=== PATIENT | male | born 1955 | race Caucasian/White ===

== ENCOUNTER 2019-01-13 15:15 | Inpatient (IN) | payer BC, SELFPAY ==
[2019-01-13] VITALS (16 sets, daily range): BP systolic 92–160; BP diastolic 56–90; PULSE 78–125; RESP 13–24; TEMP 36.5–39.1; O2SAT 92–98; BMI 23.6; BMI 24.0
--- NOTE | 2019-01-13 15:28 | EKG12_ITS ---
Test Reason : Blood Pressure : / mmHG Vent. Rate : 114 BPM Atrial Rate : 114 BPM P-R Int : 168 ms QRS Dur : 140 ms QT Int : 374 ms P-R-T Axes : 041 -89 061 degrees QTc Int : 515 ms Sinus tachycardia with occasional and consecutive Premature ventricular complexes Left axis deviation Right bundle branch block Inferior infarct , age undetermined Abnormal ECG Confirmed by SARA SIMPSON, EVIN ([id number]), senior technical editor ISRAEL NOE ([id number] on 01/15/2019 9:29:55 AM Referred By: LESTER Confirmed By:EVIN RUIZ MD
--- NOTE | 2019-01-13 15:29 | CT_ITS ---
STUDY: CT ABDOMEN AND PELVIS WITH CONTRAST REASON FOR EXAM: Male, 63 years old. Bilateral lower abdominal pain. RADIATION DOSAGE (If Supplied By Facility): CTDIvol = ( 11.15 ) mGy, DLP = ( 659.64 ) mGycm TECHNIQUE: Transaxial images were obtained from the dome of the diaphragm to the symphysis pubis without oral contrast. 100 IV Isovue 370 was administered. Sagittal and coronal images were reconstructed. Individualized dose optimization techniques were used for this CT. COMPARISON: January 13, 2013 FINDINGS: There is atelectasis within the dependent portion of the lungs. The visualized portions of the heart are within normal limits. There is a small lipomatous density posterior to the right cardiac border likely of no significance Normal liver. Normal gallbladder and extrahepatic biliary system. Normal spleen. Normal pancreas. Normal bilateral adrenal glands. There are bilateral nonobstructing renal calculi. No evidence for hydronephrosis or ureteral calculus. There is a small parapelvic cyst in left kidney. Concentric thickening of the gutierrez of the stomach and narrowing of the lumen which may be consistent with nonspecific gastritis.. Normal small intestine. Diffuse ileus pattern is noted. No evidence for small bowel obstruction or pneumoperitoneum . There are diverticular changes in the sigmoid colon. There is narrowing of a long segment of the sigmoid with stranding in the fat as well as a small amount of free fluid in the pelvis likely due to acute diverticulitis. No evidence for peridiverticular abscess Appendix is not visualized likely due to prior appendectomy Atherosclerotic changes of the aorta with aneurysmal dilatation of the distal aorta with maximum dimension of approximately 3.4 x 3.1 cm.. 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 Normal inferior vena cava. Normal retroperitoneum. There is nonspecific prominence of the prostate. Normal urinary bladder. Small fat-containing umbilical hernia. Small bilateral fat-containing inguinal hernias. Lumbar spine demonstrates mild spondylosis. CT/Abdomen/Pelvis W IV Cont ONLY IMPRESSION: Concentric thickening of the gutierrez of stomach and narrowing of the lumen consistent with nonspecific gastritis. Diffuse ileus pattern. There are diverticular changes within the sigmoid colon association with segmental thickening of the wall the bowel stranding in the fat and small amount of free fluid likely due to acute diverticulitis. No peridiverticular abscess is observed at this time. Electronically Signed: Romel Zarco MD at 17:08 EDT , Service support ,
--- NOTE | 2019-01-13 15:30 | ED.VISSUMM ---
- ER Visit Summary Date of Service: 01/13/19 Chief Complaint: Lower abdominal pain History of Present Illness: The patient is a 63 M who presents for bilateral lower abdominal pain for 4 days. Patient states 4 days ago he began having crampy lower abdominal pain that is waxed and waned in intensity. It is improved by remaining still and worsened by coughing or moving resulting in abdominal muscular contraction. Patient states the pain is 10 out of 10 in the situations. He has had intermittent chills, constipation for which she tried Mylanta and Metamucil, with a last bowel movement yesterday. No nausea, vomiting, diarrhea. No dysuria, hematuria, frequency or urgency. No chest pain or shortness of breath. Patient has history of kidney stones, a colonoscopy 3 weeks ago with polypectomy, and an appendectomy. Patient is on lisinopril. He uses alcohol and tobacco. Physical Examination: Vital signs: afebrile, hemodynamically stable, no hypoxia on room air General: well nourished, well developed, in no distress, actively shivering Skin: warm, dry, no rash, no pallor HEENT: normocephalic and atraumatic; PERRL, EOMI, moist mucous membranes Cardiovascular: Tachycardic rate and regular rhythm without murmurs, no peripheral edema, 2+ pulses all distal extremities Respiratory: No increased work of breathing, lungs are clear to auscultation bilaterally, no rales, rhonchi or wheezing Abdominal: Abdomen is soft, tender in the bilateral lower quadrants and suprapubic region with voluntary guarding, normoactive bowel sounds, no rebound or distention, no masses MSK: Moves all extremities, no deformities, normal strength Neuro: Awake and alert, oriented ?4. No facial droop, sensation and motor function intact and symmetric Test Results: Abnormal Lab Results 01/13/19 01/13/19 01/13/19 15:30 15:30 15:30 WBC 11.7 H RBC 4.59 L Hgb 14.7 Hct 42.3 MCV 92.2 MCH 32.0 MCHC 34.8 RDW 12.9 RDW Differential 43.3 Plt Count 153 MPV 13.2 H Immature Gran % (Auto) 0.100 Neut % (Auto) 90.4 H Lymph % (Auto) 5.5 L [place] % (Auto) 3.5 Eos % (Auto) 0.4 Baso % (Auto) 0.1 Absolute Neuts (auto) 10.5 H Absolute Lymphs (auto) 0.64 L Total Counted Not Reportable PT 13.7 INR 1.1 APTT 29.8 Sodium 133 L Potassium 4.4 Chloride 102 Carbon Dioxide 25.0 Anion Gap 6 BUN 15 Creatinine 1.08 Estim Creat Clear Calc 76.84 Est GFR (MDRD) Af Amer 89 Est GFR (MDRD) Non-Af 73 BUN/Creatinine Ratio 13.9 Glucose 96 Lactic Acid Calcium 8.8 Total Bilirubin 0.80 AST 35 ALT 24 Alkaline Phosphatase 98 Total Protein 7.4 Albumin 3.4 Globulin 4.0 Albumin/Globulin Ratio 0.8 L Urine Color Urine Clarity Urine pH Ur Specific [place] Urine Protein Urine Glucose (UA) Urine Ketones Urine Occult Blood Urine Nitrite Urine Bilirubin Urine Urobilinogen Ur Leukocyte Esterase Urine RBC Urine WBC Ur Squamous Epith Cells Urine Bacteria Urine Mucus 01/13/19 01/13/19 15:30 17:15 WBC RBC Hgb Hct MCV MCH MCHC RDW RDW Differential Plt Count MPV Immature Gran % (Auto) Neut % (Auto) Lymph % (Auto) [place] % (Auto) Eos % (Auto) Baso % (Auto) Absolute Neuts (auto) Absolute Lymphs (auto) Total Counted PT INR APTT Sodium Potassium Chloride Carbon Dioxide Anion Gap BUN Creatinine Estim Creat Clear Calc Est GFR (MDRD) Af Amer Est GFR (MDRD) Non-Af BUN/Creatinine Ratio Glucose Lactic Acid 2.0 Calcium Total Bilirubin AST ALT Alkaline Phosphatase Total Protein Albumin Globulin Albumin/Globulin Ratio Urine Color Yellow Urine Clarity Clear Urine pH 6.5 Ur Specific [place] 1.010 Urine Protein Negative Urine Glucose (UA) Normal Urine Ketones 15 H Urine Occult Blood Negative Urine Nitrite Negative Urine Bilirubin Negative Urine Urobilinogen Normal Ur Leukocyte Esterase Negative Urine RBC 0 SEEN Urine WBC 0 SEEN Ur Squamous Epith Cells 0 SEEN Urine Bacteria 0 SEEN Urine Mucus 0 SEEN Clinical Impression(s) from Imaging Studies Abdomen/Pelvis CT 01/13/19 15:29 IMPRESSION: Concentric thickening of the gutierrez of stomach and narrowing of the lumen consistent with nonspecific gastritis. Diffuse ileus pattern. There are diverticular changes within the sigmoid colon association with segmental thickening of the wall the bowel stranding in the fat and small amount of free fluid likely due to acute diverticulitis. No peridiverticular abscess is observed at this time. Electronically Signed: Romel Zarco MD at 17:08 EDT , Service support , Chest X-Ray 01/13/19 15:35 IMPRESSION: No acute cardiopulmonary pathology Electronically Signed: Romel Zarco MD at 16:59 EDT , Service support , Medications Given Sodium Chloride () 1,000 mls @ 999 mls/hr IV .Q1H1M STEFFI Last Admin: 01/13/19 17:31 Dose: Not Given Admin: 01/13/19 17:31 Dose: Not Given Admin: 01/13/19 15:42 Dose: 999 mls/hr Discontinued Medications Piperacillin Sod/Tazobactam (Sod 3.375 gm/ Sodium Chloride) 50 mls @ 100 mls/hr IV X1 ONE Stop: 01/13/19 17:01 Last Admin: 01/13/19 17:32 Dose: 100 mls/hr Morphine Sulfate () 4 mg IV X1 ONE Stop: 01/13/19 15:29 Last Admin: 01/13/19 15:42 Dose: 4 mg Morphine Sulfate () 4 mg IV X1 ONE Stop: 01/13/19 17:17 Ondansetron HCl (Zofran) 4 mg IV X1 ONE Stop: 01/13/19 15:29 Last Admin: 01/13/19 15:42 Dose: 4 mg Emergency Department Course and Treatment: Patient presents tachycardic, tachypneic with obvious rigors, and abdominal complaints concerning for intra-abdominal process, meeting SIRS criteria. Thus sepsis workup was performed. Patient was given normal saline for hydration. Patient was given morphine and Zofran for symptom medic relief. Labs showed a mild leukocytosis of 11.7 with neutrophil predominance. Urine was negative for infection. CT of the abdomen and pelvis showed fat stranding around the sigmoid colon, interpreted by radiology is most likely consistent with acute diverticulitis. Zosyn was started for empiric antibiotic coverage due to the suspected intra-abdominal source before that CT scan had been performed. Lactate was 2. Patient remained tachycardic while in the emergency department but did have some improvement in his heart rate with IV fluids and pain control. Patient required additional pain medication. He will require admission for IV antibiotics and further inpatient management of sepsis and acute diverticulitis. Treatment Plan: [] Disposition: [] Impression: acute diverticulitis, sepsis This note was generated with [employer] dictation software. It may contain incorrect words, spelling, and punctuation that were not noted in review of the chart prior to signing ED Disposition - Plan for ED Patient: Referrals: Juanjose Lainez MD [Primary Care Provider] -
--- NOTE | 2019-01-13 15:35 | RAD_ITS ---
STUDY: X-RAY CHEST REASON FOR EXAM: Male, 63 years old. Fever and upper abdominal pain TECHNIQUE: AP portable COMPARISON: None. FINDINGS: The lungs are clear and expanded. There is no demonstrated pleural abnormality. Normal size heart. Normal mediastinum and eleno. Normal visualized pulmonary arteries. Minor calcification of the aortic arch and descending thoracic aorta. Normal visualized thoracic spine. Normal visualized ribs, clavicles, and shoulders. There is no demonstrated abnormality of the visualized soft tissue structures of the upper abdomen. RAD/Chest 1 View (Portable) IMPRESSION: No acute cardiopulmonary pathology Electronically Signed: Romel Zarco MD at 16:59 EDT , Service support ,
[2019-01-13] MEDS: Morphine 4 MG/ML Syringe IV (15:42)
[2019-01-13] MEDS: 0.9% Normal Saline 1,000 ML 999 ML IV (15:42)
[2019-01-13] MEDS: Ondansetron 4 MG/2 ML Vial IV (15:42)
[2019-01-13 16:16] LABS: ALB/GLOB Ratio 0.8 RATIO (0.9-2.4); AST(SGOT) 35 U/L (15-37); Alanine Aminotransfer ALT/SGPT 24 U/L (16-61); Albumin, Serum 3.4 g/dL (3.2-5.0); Alkaline Phosphatase 98 U/L (45-117); Anion Gap 6 (5-15); BUN 15 mg/dL (7-18); BUN/Creat Ratio 13.9 RATIO (10-20); Calcium,Total 8.8 mg/dL (8.5-10.1); Chloride 102 mmol/L (98-107); Creatinine, Serum 1.08 mg/dL (0.70-1.30); EST Glomerular Filtration Rate 73 mL/min (>60); Est Glom Filt Rate - Afr Amer 89 mL/min (>60); Estimated Creatinine Clearance 76.84 ml/min; Glucose 96 mg/dL (74-106); Potassium 4.4 mmol/L (3.5-5.1); Protein, Total 7.4 g/dL (6.4-8.2); Sodium Level 133 mmol/L (136-145)
[2019-01-13 16:29] LABS: Absolute Lymphocyte Count 0.64 X10^3/ul (0.83-4.51); Absolute Neutrophil Count 10.5 X10^3/uL (2.0-7.7); Basophil# 0.01 X10^3/uL; Basophil% 0.1 % (0-1); Eosinophil# 0.05 X10^3/uL; Eosinophils% 0.4 % (0-5); Hematocrit 42.3 % (40-54); Hemoglobin 14.7 g/dl (13.0-16.5); Lymphocyte # 0.64 X10^3/ul (4.0); Lymphocyte % 5.5 % (19-41); Mean Corp Hgb Conc 34.8 g/gl (32-36); Mean Corpuscular Volume 92.2 fL (80-94); Mean Platelet Vol. 13.2 fl (6.2-12.0); Monocyte# 0.41 X10^3/uL; Monocyte% 3.5 % (0-10); Neutrophil # 10.53 X10^3/uL (2.7-7.7); Neutrophil % 90.4 % (47-70); Platelet Count 153 K/mm3 (150-450); RBC Distribution Width CV 12.9 % (11.6-14.6); RBC Distribution Width SD 43.3 fl (35.1-43.9); Red Blood Count 4.59 M/mm3 (4.6-6.2); White Blood Count 11.7 K/mm3 (4.4-11.0)
[2019-01-13 16:31] LABS: POSITIVE COUNT NO; POSITIVE DIFFERENTIAL NO; POSITIVE MORPHOLOGY NO
[2019-01-13 16:53] LABS: International Normalized Ratio 1.1; Prothrombin Time (Protime)PT. 13.7 SECONDS (11.7-14.9)
[2019-01-13 16:54] LABS: Partial Thromboplast Time 29.8 Seconds (24.1-36.2)
[2019-01-13 17:22] LABS: Bacteria 0 SEEN /hpf (None Seen); Mucous, Urine 0 SEEN /hpf (<or=2+); Red Blood Cells-Urine 0 SEEN /hpf (0-5); Squamous Epithelial Cells - UA 0 SEEN /hpf (0-5); White Blood Cells 0 SEEN /hpf (0-5)
[2019-01-13 17:28] LABS: Color, Urine Yellow (Yellow); Glucose, Dipstick Normal (Normal); Ketone-Dipstick 15 mg/dl (Negative); Leukocyte Esterase-Dipstick Negative /ul (Negative); Nitrite-Dipstick Negative (Negative); Occult Blood-Urine Negative /ul (Negative); Protein-Dipstick Negative (Negative); Urine Bilirubin Dipstick Negative (Negative); Urine Clarity Clear (Clear); Urine Urobilinogen Normal (Normal); Urine pH 6.5 (5.0 - 8.0)
--- NOTE | 2019-01-13 18:01 | PCM.HP.STD ---
Problem List (1) Acute diverticulitis Status: Acute (2) Hypertension Status: Chronic Qualifiers: Hypertension type: essential hypertension Qualified Code(s): I10 - Essential (primary) hypertension (3) Nicotine dependence Status: Chronic Qualifiers: Nicotine product type: cigarettes Substance use status: uncomplicated Qualified Code(s): F17.210 - Nicotine dependence, cigarettes, uncomplicated (4) Alcohol dependence Status: Chronic Qualifiers: Substance use status: uncomplicated Qualified Code(s): F10.20 - Alcohol dependence, uncomplicated History of Present Illness Date of Admission: 01/13/19 Chief Complaint: Abdominal pain- 4 days. fever, chills - 1 week The patient is a 63 year old M with past medical history of hypertension, nicotine dependence, alcohol dependence who comes in with complaints of fever and chills ongoing for 1 week and abdominal discomfort ongoing for 3-4 days. Patient states that he had colonoscopy done 3 weeks ago on December 22, 2018. He reported that he was in his usual state of health until about a week ago when he started having fever and chills. His fever and chills were managed symptomatically and seemed to have been abating. He, however, developed severe abdominal pain 4 days which is described as cramping. He denied any nausea or vomiting or diarrhea. He admits to drinking about 6 packs of beer every day. Denied any acute withdrawal symptoms. Admits to smoking about a pack per day. Vitals in the ED show blood pressure 160/90, temperature 97.7 F, heart rate 125, respiratory rate 24, SPO2 98% on room air. His admitting blood work showed WBC count of 11.7, hemoglobin 14.7, platelet count 153, INR 1.1, BMP was unremarkable except for sodium of 133, UA was unremarkable Admitting chest x-ray showed no acute cardiopulmonary process. CT of the abdomen and pelvis showed atelectasis in the dependent portion of the lungs, bilateral nonobstructing renal calculi without evidence of hydronephrosis, concentric thickening of the gutierrez of the stomach and narrowing of the lumen consistent with nonspecific gastritis, diffuse ileus, diverticular changes in the sigmoid with stranding in the fact consistent with acute diverticulitis. Past Medical History Past Medical History (Chronic Problems): Chronic Problems Hypertension (Chronic) Nicotine dependence (Chronic) Alcohol dependence (Chronic) Allergies No Known Allergies Allergy (Verified 04/15/19 15:19) Home Medications: Ambulatory Orders Medication Instructions Recorded Lisinopril [Zestril] 10 mg PO DAILY 01/13/19 Surgical History: cholecystectomy, tonsillectomy Psychiatric History: No pertinent psych hx Lives: Alone Smoking Status: Current every day smoker Tobacco Use: Cigarettes Alcohol: Heavy Drugs: None - *Family History Maternal History Items: Hypertension Paternal History Items: Hypertension Review of Systems Constitutional: Reports: Anorexia, Chills, Fever, Malaise, Weakness, Fatigue. Denies: Night Sweats, Weight Change Eyes: Denies: Blurred vision, Cataracts, Conjunctivae Inflammation, Pain, Redness HEENT: Denies: Difficulty Hearing, Difficulty Swallowing, Head Aches, Hearing Changes, Sinus Congestion, Sinus Drainage, Sore Throat Cardiovascular: Denies: Chest Pain, Claudication, Chest Pressure, Orthopnea, Palpitations Respiratory: Denies: Cough, Hemoptysis, Shortness of breath at rest, Sputum production Gastrointestinal: Reports: Abdominal Pain. Denies: Diarrhea, Nausea, Vomiting Genitourinary: Denies: Dysuria, Frequency, Incontinence Musculoskeletal: Denies: Joint Pain, Joint Tenderness Skin: Denies: Rash, Wounds Neurological: Denies: Numbness, Tingling, Focal weakness Psychiatric: Denies: Anxiety, Depression, Homicidal Ideations, Suicidal Ideations Hematologic/ Lymphatic: Denies: Easy Bruising, Easy Bleeding VTE Information - Inpt Only VTE Present on Admission: No VTE Pharm Prophylaxis ordered?: Yes Patient Problems: Active and Suspected Problems Acute diverticulitis (Acute) - Physical Exam General: Alert, Oriented x3, Cooperative, - - appears unwell HEENT: Atraumatic, PERRLA, EOMI, Normocephalic Oral: Moist Mucosa Neck: Supple, No JVD, Negative Carotid Bruits Lungs: Clear to auscultation, Normal air movement Cardiovascular: Regular rate, Regular Rhythm, Normal S1, Normal S2, No murmurs Abdomen: Bowel Sounds Present, Soft, Tender - generalised, worse in left lower quadrant Extremities: No edema Skin: No rashes, No breakdown Musculoskeletal: No Tenderness to Palpation of Joints or Extremities Lymphatic: No Cervical, Supraclavicular, or Inguinal Adenopathy Neurological: Cranial nerves II-XII grossly intact, Neuro grossly intact Psych/Mental Status: Normal Affect, Appropriate Vital Signs Temp Pulse Resp BP Pulse Ox 98.0 F 116 H 20 H 129/77 H 93 01/13/19 17:11 01/13/19 17:12 01/13/19 17:12 01/13/19 16:57 01/13/19 17:12 Oxygen Delivery Method Room Air Weight: 79.2 kg Body Mass Index (BMI) 23.6 Laboratory Tests Past 24 Hrs 01/13/19 01/13/19 01/13/19 15:30 15:30 15:30 WBC 11.7 H RBC 4.59 L Hgb 14.7 Hct 42.3 MCV 92.2 MCH 32.0 MCHC 34.8 RDW 12.9 RDW Differential 43.3 Plt Count 153 MPV 13.2 H Immature Gran % (Auto) 0.100 Neut % (Auto) 90.4 H Lymph % (Auto) 5.5 L [place] % (Auto) 3.5 Eos % (Auto) 0.4 Baso % (Auto) 0.1 Absolute Neuts (auto) 10.5 H Absolute Lymphs (auto) 0.64 L Total Counted Not Reportable PT 13.7 INR 1.1 APTT 29.8 Sodium 133 L Potassium 4.4 Chloride 102 Carbon Dioxide 25.0 Anion Gap 6 BUN 15 Creatinine 1.08 Estim Creat Clear Calc 76.84 Est GFR (MDRD) Af Amer 89 Est GFR (MDRD) Non-Af 73 BUN/Creatinine Ratio 13.9 Glucose 96 Lactic Acid Calcium 8.8 Total Bilirubin 0.80 AST 35 ALT 24 Alkaline Phosphatase 98 Total Protein 7.4 Albumin 3.4 Globulin 4.0 Albumin/Globulin Ratio 0.8 L Urine Color Urine Clarity Urine pH Ur Specific [place] Urine Protein Urine Glucose (UA) Urine Ketones Urine Occult Blood Urine Nitrite Urine Bilirubin Urine Urobilinogen Ur Leukocyte Esterase Urine RBC Urine WBC Ur Squamous Epith Cells Urine Bacteria Urine Mucus 01/13/19 01/13/19 15:30 17:15 WBC RBC Hgb Hct MCV MCH MCHC RDW RDW Differential Plt Count MPV Immature Gran % (Auto) Neut % (Auto) Lymph % (Auto) [place] % (Auto) Eos % (Auto) Baso % (Auto) Absolute Neuts (auto) Absolute Lymphs (auto) Total Counted PT INR APTT Sodium Potassium Chloride Carbon Dioxide Anion Gap BUN Creatinine Estim Creat Clear Calc Est GFR (MDRD) Af Amer Est GFR (MDRD) Non-Af BUN/Creatinine Ratio Glucose Lactic Acid 2.0 Calcium Total Bilirubin AST ALT Alkaline Phosphatase Total Protein Albumin Globulin Albumin/Globulin Ratio Urine Color Yellow Urine Clarity Clear Urine pH 6.5 Ur Specific [place] 1.010 Urine Protein Negative Urine Glucose (UA) Normal Urine Ketones 15 H Urine Occult Blood Negative Urine Nitrite Negative Urine Bilirubin Negative Urine Urobilinogen Normal Ur Leukocyte Esterase Negative Urine RBC 0 SEEN Urine WBC 0 SEEN Ur Squamous Epith Cells 0 SEEN Urine Bacteria 0 SEEN Urine Mucus 0 SEEN Assessment/Plan All Active Problems Acute diverticulitis (Acute) 63 year old M with past medical history of hypertension, nicotine dependence, alcohol dependence who comes in with complaints of fever and chills ongoing for 1 week and abdominal discomfort ongoing for 3-4 days. Patient states that he had colonoscopy done 3 weeks ago (December 22, 2018) 1. Sepsis secondary to acute diverticulitis, (admitting fever with chills, leukocytosis and diverticulitis on CT scan of abdomen/pelvis Plan: Admit to [facility], IV Cipro, IV Flagyl, general surgery-Dr. Henry consult, pain control, IV fluids, repeat labs in a.m. 2. Nicotine dependence, on replacement 3. Chronic alcohol dependence, not in acute withdrawal at the moment, will put on alcohol withdrawal protocol, Will continue on IV thiamine for now since patient is n.p.o., Patient will need to be put on multivitamin, folic acid, oral thiamine when he is able to tolerate a diet 4. Hypertension, controlled, on lisinopril, Continue to monitor 5. DVT PPx- Heparin SC Code Visit Inpatient E&M: 73093 Init Hosp L3
[2019-01-13] MEDS: Acetaminophen 500 MG Tablet 1000 MG PO (18:16)
[2019-01-13] MEDS: Ciprofloxacin 200 MG/100 ML BAG 100 MG IV (19:27)
[2019-01-13] MEDS: 0.9% Normal Saline 1,000 ML 100 ML IV (19:27)
[2019-01-13 19:55] LABS: Reflex Lactate? Y
[2019-01-13 21:23] LABS: Lactic Acid 0.9 mmol/L (0.4-2.0)
[2019-01-13] MEDS: Heparin Injection (Vial) 5,000 UNIT/ML VIAL 5000 UNIT SC (21:31)
[2019-01-14] VITALS (9 sets, daily range): BP systolic 96–134; BP diastolic 56–81; PULSE 77–107; RESP 14–18; TEMP 36.7–37.8; O2SAT 94–100
[2019-01-14] MEDS: 0.9% Normal Saline 1,000 ML 150 ML IV ×3 (04:16→21:25)
--- NOTE | 2019-01-14 04:21 | NURSING ---
Patient refused seizure pads. He states he does not drink a six pack of beer a day. He states he may drink a six pack in a week or more.
[2019-01-14 06:16] LABS: Absolute Lymphocyte Count 0.89 X10^3/ul (0.83-4.51); Absolute Neutrophil Count 10.7 X10^3/uL (2.0-7.7); Basophil# 0.03 X10^3/uL; Basophil% 0.2 % (0-1); Eosinophil# 0.12 X10^3/uL; Hematocrit 36.2 % (40-54); Hemoglobin 12.4 g/dl (13.0-16.5); Lymphocyte # 0.89 X10^3/ul (4.0); Lymphocyte % 7.2 % (19-41); Mean Corp Hgb Conc 34.3 g/gl (32-36); Mean Corpuscular Hgb 31.4 pg (27.0-32.0); Mean Corpuscular Volume 91.6 fL (80-94); Mean Platelet Vol. 12.3 fl (6.2-12.0); Monocyte# 0.58 X10^3/uL; Monocyte% 4.7 % (0-10); Neutrophil # 10.68 X10^3/uL (2.7-7.7); Neutrophil % 86.7 % (47-70); Platelet Count 139 K/mm3 (150-450); RBC Distribution Width SD 43.6 fl (35.1-43.9); Red Blood Count 3.95 M/mm3 (4.6-6.2); White Blood Count 12.3 K/mm3 (4.4-11.0)
[2019-01-14 06:29] LABS: POSITIVE COUNT NO; POSITIVE DIFFERENTIAL NO; POSITIVE MORPHOLOGY NO
[2019-01-14 06:44] LABS: Anion Gap 4 (5-15); BUN 15 mg/dL (7-18); BUN/Creat Ratio 17.6 RATIO (10-20); Chloride 109 mmol/L (98-107); Creatinine, Serum 0.85 mg/dL (0.70-1.30); EST Glomerular Filtration Rate 96 mL/min (>60); Est Glom Filt Rate - Afr Amer 117 mL/min (>60); Estimated Creatinine Clearance 97.63 ml/min; Glucose 92 mg/dL (74-106); Potassium 3.8 mmol/L (3.5-5.1); Sodium Level 136 mmol/L (136-145)
--- NOTE | 2019-01-14 06:48 | CON.PCM_ITS ---
Reason for Consult Date of Consultation: 01/14/19 History of Present Illness: The patient is a 63 year old M who presents with a four-day history of bilateral lower quadrant abdominal pain. The patient noted onset of lower abdominal pain along with fever and chills starting last . The pain persisted and became more severe. He noted some degree of constipation but was taking fiber and Mylanta and did notice a bowel movement yesterday. He is passing some flatus. When he presented emergency department, he was noted to be tender in the bilateral lower quadrants. Laboratory studies demonstrated a mildly elevated WBC count. CT scan demonstrated uncomplicated sigmoid diverticulitis. I had seen the patient recently for colon cancer screening complaints of upper abdominal reflux. He underwent upper and lower endoscopy on December 20, 2018. The patient was found to have duodenitis gastritis and distal esophagitis the time of endoscopy. Gastric and esophageal biopsies demonstrated reactive changes. Colonoscopy demonstrated L moderate size sessile polyp in the ascending colon, a few small diverticula in the sigmoid region and a smaller polyp in the rectosigmoid area. The ascending colon polyp returned as a tubular adenoma. The rectosigmoid polyp returned as a hyperplastic polyp. The patient was admitted to [facility]. He was started on ciprofloxacin and Flagyl and I was consulted. The patient's past medical history is otherwise him for hypertension, reflux. H is past surgical history includes appendectomy, tonsillectomy, laparoscopic cholecystectomy, and endoscopies as noted. Past Medical History Past Medical History (Chronic Problems): Chronic Problems Hypertension (Chronic) Nicotine dependence (Chronic) Alcohol dependence (Chronic) Allergies No Known Allergies Allergy (Verified 01/13/19 15:19) Home Medications: Ambulatory Orders Medication Instructions Recorded Lisinopril [Zestril] 10 mg PO DAILY 01/13/19 Surgical History: cholecystectomy, tonsillectomy Psychiatric History: No pertinent psych hx Lives: Alone Smoking Status: Current every day smoker Tobacco Use: Cigarettes Alcohol: Heavy Drugs: None - *Family History Maternal History Items: Hypertension Paternal History Items: Hypertension Review of Systems Constitutional: Reports: Anorexia, Chills, Fever. Denies: Weight Change HEENT: Denies: Head Aches, Sinus Congestion, Sinus Drainage Cardiovascular: Denies: Chest Pain, Palpitations Respiratory: Denies: Cough, Shortness of breath at rest, Sputum production Gastrointestinal: Reports: Abdominal Pain. Denies: Nausea, Vomiting Genitourinary: Denies: Dysuria Musculoskeletal: Denies: Joint Pain, Joint Tenderness Skin: Denies: Rash, Wounds Neurological: Denies: Numbness, Tingling, Focal weakness Psychiatric: Denies: Anxiety, Depression, Homicidal Ideations, Suicidal Ideations Hematologic/ Lymphatic: Denies: Easy Bruising, Easy Bleeding Patient Problems: Active and Suspected Problems Acute diverticulitis (Acute) - Physical Exam HEENT: Atraumatic, PERRLA, EOMI, Normocephalic Lungs: Clear to auscultation, Normal air movement Cardiovascular: Regular rate, No murmurs Abdomen: Bowel Sounds Present, Soft, Tender - tender in the right and left lower quadrants without diffuse peritoneal signs Vital Signs Temp Pulse Resp BP Pulse Ox 98.9 F 77 18 99/66 94 01/14/19 06:00 01/14/19 06:00 01/14/19 06:00 01/14/19 06:00 01/14/19 06:00 Oxygen Delivery Method Room Air Weight: 80.286 kg Body Mass Index (BMI) 24.0 Intake and Output for Last 24 Hours 01/12/19 01/13/19 01/14/19 23:59 23:59 23:59 Intake Total 1477 / 1477 Output Total 500 / 500 Balance 977 / 977 Laboratory Tests Past 24 Hrs 01/13/19 01/13/19 01/13/19 15:30 15:30 15:30 WBC 11.7 H RBC 4.59 L Hgb 14.7 Hct 42.3 MCV 92.2 MCH 32.0 MCHC 34.8 RDW 12.9 RDW Differential 43.3 Plt Count 153 MPV 13.2 H Immature Gran % (Auto) 0.100 Neut % (Auto) 90.4 H Lymph % (Auto) 5.5 L [place] % (Auto) 3.5 Eos % (Auto) 0.4 Baso % (Auto) 0.1 Absolute Neuts (auto) 10.5 H Absolute Lymphs (auto) 0.64 L Total Counted Not Reportable PT 13.7 INR 1.1 APTT 29.8 Sodium 133 L Potassium 4.4 Chloride 102 Carbon Dioxide 25.0 Anion Gap 6 BUN 15 Creatinine 1.08 Estim Creat Clear Calc 76.84 Est GFR (MDRD) Af Amer 89 Est GFR (MDRD) Non-Af 73 BUN/Creatinine Ratio 13.9 Glucose 96 Lactic Acid Calcium 8.8 Total Bilirubin 0.80 AST 35 ALT 24 Alkaline Phosphatase 98 Total Protein 7.4 Albumin 3.4 Globulin 4.0 Albumin/Globulin Ratio 0.8 L Urine Color Urine Clarity Urine pH Ur Specific [place] Urine Protein Urine Glucose (UA) Urine Ketones Urine Occult Blood Urine Nitrite Urine Bilirubin Urine Urobilinogen Ur Leukocyte Esterase Urine RBC Urine WBC Ur Squamous Epith Cells Urine Bacteria Urine Mucus 01/13/19 01/13/19 01/13/19 15:30 17:15 20:42 WBC RBC Hgb Hct MCV MCH MCHC RDW RDW Differential Plt Count MPV Immature Gran % (Auto) Neut % (Auto) Lymph % (Auto) [place] % (Auto) Eos % (Auto) Baso % (Auto) Absolute Neuts (auto) Absolute Lymphs (auto) Total Counted PT INR APTT Sodium Potassium Chloride Carbon Dioxide Anion Gap BUN Creatinine Estim Creat Clear Calc Est GFR (MDRD) Af Amer Est GFR (MDRD) Non-Af BUN/Creatinine Ratio Glucose Lactic Acid 2.0 0.9 Calcium Total Bilirubin AST ALT Alkaline Phosphatase Total Protein Albumin Globulin Albumin/Globulin Ratio Urine Color Yellow Urine Clarity Clear Urine pH 6.5 Ur Specific [place] 1.010 Urine Protein Negative Urine Glucose (UA) Normal Urine Ketones 15 H Urine Occult Blood Negative Urine Nitrite Negative Urine Bilirubin Negative Urine Urobilinogen Normal Ur Leukocyte Esterase Negative Urine RBC 0 SEEN Urine WBC 0 SEEN Ur Squamous Epith Cells 0 SEEN Urine Bacteria 0 SEEN Urine Mucus 0 SEEN 01/14/19 01/14/19 05:55 05:55 WBC 12.3 H RBC 3.95 L Hgb 12.4 L Hct 36.2 L MCV 91.6 MCH 31.4 MCHC 34.3 RDW 13.0 RDW Differential 43.6 Plt Count 139 L MPV 12.3 H Immature Gran % (Auto) 0.200 Neut % (Auto) 86.7 H Lymph % (Auto) 7.2 L [place] % (Auto) 4.7 Eos % (Auto) 1.0 Baso % (Auto) 0.2 Absolute Neuts (auto) 10.7 H Absolute Lymphs (auto) 0.89 Total Counted Not Reportable PT INR APTT Sodium Pending Potassium Pending Chloride Pending Carbon Dioxide Pending Anion Gap Pending BUN Pending Creatinine Pending Estim Creat Clear Calc Est GFR (MDRD) Af Amer Pending Est GFR (MDRD) Non-Af Pending BUN/Creatinine Ratio Pending Glucose Pending Lactic Acid Calcium Pending Total Bilirubin AST ALT Alkaline Phosphatase Total Protein Albumin Globulin Albumin/Globulin Ratio Urine Color Urine Clarity Urine pH Ur Specific [place] Urine Protein Urine Glucose (UA) Urine Ketones Urine Occult Blood Urine Nitrite Urine Bilirubin Urine Urobilinogen Ur Leukocyte Esterase Urine RBC Urine WBC Ur Squamous Epith Cells Urine Bacteria Urine Mucus Assessment/Plan All Active Problems Acute diverticulitis (Acute) sigmoid diverticulitis-uncomplicated I agree with maintaining the patient on nothing by mouth status for now given his abdominal complaints of discomfort and anorexia. We'll continue IV antibiotics until he has improvement of his abdominal pain and normalization of his white blood cell count. Once this occurs, we'll transition oral antibiotics and restart a low residue diet. I discussed with the patient had few small diverticula on CT scan so I anticipate that he will respond to conservative measures.
--- NOTE | 2019-01-14 07:24 | PN_ITS ---
Patient Problems: Active and Suspected Problems Acute diverticulitis (Acute) Subjective: The patient is a 63 year old M with past medical history of hypertension, nicotine dependence, alcohol dependence who comes in with complaints of fever and chills ongoing for 1 week and abdominal discomfort ongoing for 3-4 days. Vi js signs in the emergency department were temperature 97.7, blood pressure 160/90, heart rate 125, respiratory rate 24 and he was 98% saturated on room air. White blood cell count was 11.7, hemoglobin was 14.7 and the platelet count was 153,000. BMP was unremarkable with the exception of a mildly decreased sodium at 133. Admitting chest x-ray showed no acute cardiopulmonary processes. CT scan of the abdomen and pelvis showed concentric thickening of the gutierrez of the stomach and narrowing of the lumen consistent with nonspecific gastritis ileus was present. There were diverticular changes in the sigmoid colon with associated segmental thickening of the wall and stranding in the fat. No abscess was observed. On physical examination the abdomen was soft with bowel sounds present. He had pain with palpation which was generalized but worse in the left lower quadrant. He was admitted to the hospital with a diagnosis of sepsis secondary to acute diverticulitis. IV Cipro and IV Flagyl were continued and consult was placed for Dr. Henry. Day #2 Cipro and Flagyl All events of the past 24 hours been reviewed. Patient was seen by Dr. Henry this morning and I reviewed his consult. He agrees with conservative management. T-max is 102.3 and current temp is 98.9. Blood pressures are on the low side the systolic in the 90s but the MAP is adequate. Tachycardia has resolved. He is 94% saturated on room air. All lab was personally reviewed. The white blood cell count today is 12.3 with a left shift. Hemoglobin is 12.4 and the platelet count is 139,000. BMP is unremarkable. LFTs were normal at admission. He is c/o severe abdominal pain and cramping. Denies nausea. He drinks a six pack a week and not a six pack a day. He is thirsty and feeling lightheaded. - Physical Exam General: Alert, Oriented x3, Cooperative, Well developed, Well nourished, - - looks to be in severe pain and he is in a position HEENT: Atraumatic, PERRLA Oral: Dry Mucosa Neck: No JVD, Trachea Midline Lungs: Clear to auscultation, Normal air movement Cardiovascular: Regular rate, Regular Rhythm, Normal S1, Normal S2, No murmurs, - - distant heart sounds Abdomen: Bowel Sounds Present, Soft, Non-Distended, Tender - sakina in the LLQ, no rebound Extremities: No clubbing, No cyanosis, No edema, Peripheral Pulses Normal Skin: No rashes Neurological: Cranial nerves II-XII grossly intact, Neuro grossly intact Psych/Mental Status: Normal Affect, Appropriate Vital Signs Temp Pulse Resp BP Pulse Ox 98.9 F 77 18 99/66 94 01/14/19 06:00 01/14/19 06:00 01/14/19 06:00 01/14/19 06:00 01/14/19 06:00 Oxygen Delivery Method Room Air Weight: 177 lb Body Mass Index (BMI) 24.0 Intake and Output for Last 24 Hours 01/12/19 01/13/19 01/14/19 23:59 23:59 23:59 Intake Total 1477 / 1477 Output Total 500 / 500 Balance 977 / 977 Laboratory Tests Past 24 Hrs 01/13/19 01/13/19 01/13/19 15:30 15:30 15:30 WBC 11.7 H RBC 4.59 L Hgb 14.7 Hct 42.3 MCV 92.2 MCH 32.0 MCHC 34.8 RDW 12.9 RDW Differential 43.3 Plt Count 153 MPV 13.2 H Immature Gran % (Auto) 0.100 Neut % (Auto) 90.4 H Lymph % (Auto) 5.5 L [place] % (Auto) 3.5 Eos % (Auto) 0.4 Baso % (Auto) 0.1 Absolute Neuts (auto) 10.5 H Absolute Lymphs (auto) 0.64 L Total Counted Not Reportable PT 13.7 INR 1.1 APTT 29.8 Sodium 133 L Potassium 4.4 Chloride 102 Carbon Dioxide 25.0 Anion Gap 6 BUN 15 Creatinine 1.08 Estim Creat Clear Calc 76.84 Est GFR (MDRD) Af Amer 89 Est GFR (MDRD) Non-Af 73 BUN/Creatinine Ratio 13.9 Glucose 96 Lactic Acid Calcium 8.8 Total Bilirubin 0.80 AST 35 ALT 24 Alkaline Phosphatase 98 Total Protein 7.4 Albumin 3.4 Globulin 4.0 Albumin/Globulin Ratio 0.8 L Urine Color Urine Clarity Urine pH Ur Specific [place] Urine Protein Urine Glucose (UA) Urine Ketones Urine Occult Blood Urine Nitrite Urine Bilirubin Urine Urobilinogen Ur Leukocyte Esterase Urine RBC Urine WBC Ur Squamous Epith Cells Urine Bacteria Urine Mucus 01/13/19 01/13/19 01/13/19 15:30 17:15 20:42 WBC RBC Hgb Hct MCV MCH MCHC RDW RDW Differential Plt Count MPV Immature Gran % (Auto) Neut % (Auto) Lymph % (Auto) [place] % (Auto) Eos % (Auto) Baso % (Auto) Absolute Neuts (auto) Absolute Lymphs (auto) Total Counted PT INR APTT Sodium Potassium Chloride Carbon Dioxide Anion Gap BUN Creatinine Estim Creat Clear Calc Est GFR (MDRD) Af Amer Est GFR (MDRD) Non-Af BUN/Creatinine Ratio Glucose Lactic Acid 2.0 0.9 Calcium Total Bilirubin AST ALT Alkaline Phosphatase Total Protein Albumin Globulin Albumin/Globulin Ratio Urine Color Yellow Urine Clarity Clear Urine pH 6.5 Ur Specific [place] 1.010 Urine Protein Negative Urine Glucose (UA) Normal Urine Ketones 15 H Urine Occult Blood Negative Urine Nitrite Negative Urine Bilirubin Negative Urine Urobilinogen Normal Ur Leukocyte Esterase Negative Urine RBC 0 SEEN Urine WBC 0 SEEN Ur Squamous Epith Cells 0 SEEN Urine Bacteria 0 SEEN Urine Mucus 0 SEEN 01/14/19 01/14/19 05:55 05:55 WBC 12.3 H RBC 3.95 L Hgb 12.4 L Hct 36.2 L MCV 91.6 MCH 31.4 MCHC 34.3 RDW 13.0 RDW Differential 43.6 Plt Count 139 L MPV 12.3 H Immature Gran % (Auto) 0.200 Neut % (Auto) 86.7 H Lymph % (Auto) 7.2 L [place] % (Auto) 4.7 Eos % (Auto) 1.0 Baso % (Auto) 0.2 Absolute Neuts (auto) 10.7 H Absolute Lymphs (auto) 0.89 Total Counted Not Reportable PT INR APTT Sodium 136 Potassium 3.8 Chloride 109 H Carbon Dioxide 23.0 Anion Gap 4 L BUN 15 Creatinine 0.85 Estim Creat Clear Calc 97.63 Est GFR (MDRD) Af Amer 117 Est GFR (MDRD) Non-Af 96 BUN/Creatinine Ratio 17.6 Glucose 92 Lactic Acid Calcium 8.0 L Total Bilirubin AST ALT Alkaline Phosphatase Total Protein Albumin Globulin Albumin/Globulin Ratio Urine Color Urine Clarity Urine pH Ur Specific [place] Urine Protein Urine Glucose (UA) Urine Ketones Urine Occult Blood Urine Nitrite Urine Bilirubin Urine Urobilinogen Ur Leukocyte Esterase Urine RBC Urine WBC Ur Squamous Epith Cells Urine Bacteria Urine Mucus Medical Necessity - Tobacco Use Smoking Status: Current every day smoker Tobacco Use: Cigarettes Assessment/Plan All Active Problems Acute diverticulitis (Acute) Impressions 1. Sepsis secondary to acute diverticulitis 2. Nicotine dependence-nicotine patch and gum has been ordered. 3. History of alcohol dependence-this is no longer the case and he drinks 1 6 pack a week. Can discontinue the folic acid and thiamine. 4. History of hypertension 5. Low normal blood pressure secondary to intravascular volume depletion 6. Dehydration Change the morphine to 4 mg IV every 3 hours as needed pain 1 L normal saline fluid bolus and continue normal saline at 150 cc/h Continue Cipro and Flagyl Hold lisinopril if the systolic is less than 110 N.p.o. Continue famotidine for GI prophylaxis DC heparin and start Lovenox 40 mg subcu daily [address] Henry's input Recheck lab in the a.m. Code Visit Inpatient E&M: 20669 Subs Hosp L2
[2019-01-14] MEDS: 0.9% NaCl Peripheral Flush Adult/Peds IV ×3 (08:49→16:59)
[2019-01-14] MEDS: Morphine 2 MG/ML Syringe 1 MG IV (08:49)
[2019-01-14] MEDS: Heparin Injection (Vial) 5,000 UNIT/ML VIAL 5000 UNIT SC (08:49)
[2019-01-14] MEDS: Ciprofloxacin 200 MG/100 ML BAG 100 MG IV ×2 (08:50→22:55)
[2019-01-14] MEDS: Morphine 4 MG/ML Syringe IV ×3 (13:06→21:25)
[2019-01-14] MEDS: 0.9% Normal Saline 1,000 ML 999 ML IV (13:06)
--- NOTE | 2019-01-14 14:00 | CASEMGMT ---
RN CM Note: attempted to see pt today. Pt is not feeling well and sleeping. Will attempt tomorrow to complete RN CM Assessment. Zack GIMENEZN RN ACM
[2019-01-14] MEDS: Dicyclomine 10 MG Capsule PO ×2 (14:18→21:48)
[2019-01-15 02:00] VITALS: BP 127/79; PULSE 90; RESP 16; TEMP 37.6; O2SAT 93
[2019-01-15] MEDS: Enoxaparin 40 MG/0.4 ML Syringe SC (05:28)
[2019-01-15] MEDS: 0.9% Normal Saline 1,000 ML 150 ML IV (05:34)
[2019-01-15 06:28] LABS: Anion Gap 13 (5-15); BUN 11 mg/dL (7-18); BUN/Creat Ratio 13.5 RATIO (10-20); Calcium,Total 7.9 mg/dL (8.5-10.1); Chloride 110 mmol/L (98-107); Creatinine, Serum 0.82 mg/dL (0.70-1.30); EST Glomerular Filtration Rate 101 mL/min (>60); Est Glom Filt Rate - Afr Amer 122 mL/min (>60); Estimated Creatinine Clearance 101.21 ml/min; Glucose 82 mg/dL (74-106); Magnesium 1.8 mg/dL (1.6-2.6); Phosphorus 1.8 mg/dL (2.5-4.9); Potassium 3.8 mmol/L (3.5-5.1); Sodium Level 140 mmol/L (136-145)
[2019-01-15 06:42] LABS: Absolute Lymphocyte Count 0.56 X10^3/ul (0.83-4.51); Absolute Neutrophil Count 11.1 X10^3/uL (2.0-7.7); Basophil# 0.03 X10^3/uL; Basophil% 0.2 % (0-1); Eosinophil# 0.07 X10^3/uL; Eosinophils% 0.6 % (0-5); Hematocrit 36.4 % (40-54); Hemoglobin 12.4 g/dl (13.0-16.5); Lymphocyte # 0.56 X10^3/ul (4.0); Lymphocyte % 4.5 % (19-41); Mean Corp Hgb Conc 34.1 g/gl (32-36); Mean Corpuscular Hgb 31.2 pg (27.0-32.0); Mean Corpuscular Volume 91.7 fL (80-94); Mean Platelet Vol. 12.5 fl (6.2-12.0); Monocyte# 0.74 X10^3/uL; Monocyte% 5.9 % (0-10); Neutrophil # 11.09 X10^3/uL (2.7-7.7); Neutrophil % 88.6 % (47-70); Platelet Count 140 K/mm3 (150-450); RBC Distribution Width CV 12.7 % (11.6-14.6); RBC Distribution Width SD 42.3 fl (35.1-43.9); Red Blood Count 3.97 M/mm3 (4.6-6.2); White Blood Count 12.5 K/mm3 (4.4-11.0)
[2019-01-15 06:52] LABS: Differential Indicated SCAN CRITERIA MET; POSITIVE COUNT NO; POSITIVE DIFFERENTIAL YES; POSITIVE MORPHOLOGY NO
[2019-01-15 08:00] VITALS: BP 127/83; PULSE 89; RESP 18; TEMP 36.8; O2SAT 96
[2019-01-15] MEDS: Dicyclomine 10 MG Capsule PO (08:04)
--- NOTE | 2019-01-15 09:39 | PCM.PROGNOTE ---
Patient Problems: Active and Suspected Problems Acute diverticulitis (Acute) Subjective: Chief complaint: Follow-up after admission for acute sigmoid diverticulitis, sepsis and gram-negative bacteremia. Patient seen and examined. No acute events overnight. Abdominal pain improved but still there, rated around 3 out of 10 in severity. Denies nausea vomiting. Still having spikes of low-grade fever. Denies constipation or diarrhea. Other vital signs are stable. - Physical Exam General: Alert, Oriented x3, Cooperative, No apparent distress HEENT: Atraumatic, PERRLA, EOMI, Normocephalic Oral: Moist Mucosa, No Gingival or Mucosal Lesions/ Ulcerations Neck: Supple, No JVD, Negative Carotid Bruits, Trachea Midline, Thyroid Normal Size and Texture Lungs: Clear to auscultation, No rhonchi, No wheeze, No rales, Diminished Cardiovascular: Regular rate, Regular Rhythm, Normal S1, Normal S2, PMI Normal Abdomen: Bowel Sounds Present, Soft, Non-Distended, No Hepato-splenomegaly, Tender - Tenderness with guarding, no rigidity. Extremities: No clubbing, No cyanosis, No edema Skin: No rashes, No breakdown Lymphatic: No Cervical, Supraclavicular, or Inguinal Adenopathy Neurological: Cranial nerves II-XII grossly intact, Motor Exam 5/5 strength throughout Psych/Mental Status: Normal Affect, Appropriate, Alert and oriented to time, place, person, mood and affect Vital Signs Temp Pulse Resp BP Pulse Ox 98.2 F 89 18 127/83 H 96 01/15/19 08:00 01/15/19 08:00 01/15/19 08:00 01/15/19 08:00 01/15/19 08:00 Oxygen Delivery Method Room Air Weight: 177 lb 0.005 oz Body Mass Index (BMI) 24.0 Intake and Output for Last 24 Hours 01/13/19 01/14/19 01/15/19 23:59 23:59 23:59 Intake Total 4917 / 4917 1117 / 1117 Output Total 1625 / 1625 525 / 525 Balance 3292 / 3292 592 / 592 Microbiology Past 72 Hours 01/13/19 14:40 Blood Culture - Preliminary Blood Culture (Wb) - Anticubital Left Laboratory Tests Past 24 Hrs 01/15/19 01/15/19 05:22 05:22 WBC 12.5 H RBC 3.97 L Hgb 12.4 L Hct 36.4 L MCV 91.7 MCH 31.2 MCHC 34.1 RDW 12.7 RDW Differential 42.3 Plt Count 140 L MPV 12.5 H Immature Gran % (Auto) 0.200 Neut % (Auto) 88.6 H Lymph % (Auto) 4.5 L [place] % (Auto) 5.9 Eos % (Auto) 0.6 Baso % (Auto) 0.2 Absolute Neuts (auto) 11.1 H Absolute Lymphs (auto) 0.56 L Total Counted Not Reportable Sodium 140 Potassium 3.8 Chloride 110 H Carbon Dioxide 17.0 L Anion Gap 13 BUN 11 Creatinine 0.82 Estim Creat Clear Calc 101.21 Est GFR (MDRD) Af Amer 122 Est GFR (MDRD) Non-Af 101 BUN/Creatinine Ratio 13.5 Glucose 82 Calcium 7.9 L Phosphorus 1.8 L Magnesium 1.8 Clinical Impression(s) from Imaging Studies Abdomen/Pelvis CT 01/13/19 15:29 IMPRESSION: Concentric thickening of the gutierrez of stomach and narrowing of the lumen consistent with nonspecific gastritis. Diffuse ileus pattern. There are diverticular changes within the sigmoid colon association with segmental thickening of the wall the bowel stranding in the fat and small amount of free fluid likely due to acute diverticulitis. No peridiverticular abscess is observed at this time. Electronically Signed: Romel Zarco MD at 17:08 EDT , Service support , Chest X-Ray 01/13/19 15:35 IMPRESSION: No acute cardiopulmonary pathology Electronically Signed: Romel Zarco MD at 16:59 EDT , Service support , Microbiology 01/13/19 14:40 Blood Culture (Wb) - Anticubital Left Blood Culture - Preliminary Medical Necessity - Tobacco Use Smoking Status: Current every day smoker Tobacco Use: Cigarettes Assessment/Plan All Active Problems Acute diverticulitis (Acute) This is a 63 years old male patient presented to the emergency room because of abdominal pain, found to have acute sigmoid diverticulitis with sepsis. #1 acute sigmoid diverticulitis/sepsis: He is on IV ciprofloxacin and Flagyl. Still having spikes of low-grade fever, other vital signs are stable. White blood cell count stayed the same compared to yesterday. One bottle of blood culture revealed gram-negative rods, urine culture showed no growth. Surgery on the case. Patient still symptomatic, having abdominal tenderness. Plan: Change IV ciprofloxacin to 400 mg IV twice daily, continue other treatments, repeat CBC tomorrow morning. #2 gram-negative bacteremia: Probable source is the acute diverticulitis. He is on IV Cipro and Flagyl as above. Plan as above, plan to repeat blood culture tomorrow. #3 hypertension: Blood pressure stable, continue lisinopril. #4 tobacco abuse: NicoDerm patch. #5 DVT prophylaxis: Subcu Lovenox. This note was generated with [employer] dictation software. It may contain incorrect words, spelling, and punctuation that were not noted in checking the note before signing. Code Visit Inpatient E&M: 30449 Subs Hosp L2
--- NOTE | 2019-01-15 09:45 | PN_ITS ---
Patient Problems: Active and Suspected Problems Acute diverticulitis (Acute) Subjective: Chief complaint: Follow-up after admission for acute sigmoid diverticulitis, sepsis and gram-negative bacteremia. Patient seen and examined. No acute events overnight. Abdominal pain improved but still there, rated around 3 out of 10 in severity. Denies nausea vomiting. Still having spikes of low-grade fever. Denies constipation or diarrhea. Other vital signs are stable. - Physical Exam General: Alert, Oriented x3, Cooperative, No apparent distress HEENT: Atraumatic, PERRLA, EOMI, Normocephalic Oral: Moist Mucosa, No Gingival or Mucosal Lesions/ Ulcerations Neck: Supple, No JVD, Negative Carotid Bruits, Trachea Midline, Thyroid Normal Size and Texture Lungs: Clear to auscultation, No rhonchi, No wheeze, No rales, Diminished Cardiovascular: Regular rate, Regular Rhythm, Normal S1, Normal S2, PMI Normal Abdomen: Bowel Sounds Present, Soft, Non-Distended, No Hepato-splenomegaly, Tender - Tenderness with guarding, no rigidity. Extremities: No clubbing, No cyanosis, No edema Skin: No rashes, No breakdown Lymphatic: No Cervical, Supraclavicular, or Inguinal Adenopathy Neurological: Cranial nerves II-XII grossly intact, Motor Exam 5/5 strength throughout Psych/Mental Status: Normal Affect, Appropriate, Alert and oriented to time, place, person, mood and affect Vital Signs Temp Pulse Resp BP Pulse Ox 98.2 F 89 18 127/83 H 96 01/15/19 08:00 01/15/19 08:00 01/15/19 08:00 01/15/19 08:00 01/15/19 08:00 Oxygen Delivery Method Room Air Weight: 177 lb 0.005 oz Body Mass Index (BMI) 24.0 Intake and Output for Last 24 Hours 01/13/19 01/14/19 01/15/19 23:59 23:59 23:59 Intake Total 4917 / 4917 1117 / 1117 Output Total 1625 / 1625 525 / 525 Balance 3292 / 3292 592 / 592 Microbiology Past 72 Hours 01/13/19 14:40 Blood Culture - Preliminary Blood Culture (Wb) - Anticubital Left Laboratory Tests Past 24 Hrs 01/15/19 01/15/19 05:22 05:22 WBC 12.5 H RBC 3.97 L Hgb 12.4 L Hct 36.4 L MCV 91.7 MCH 31.2 MCHC 34.1 RDW 12.7 RDW Differential 42.3 Plt Count 140 L MPV 12.5 H Immature Gran % (Auto) 0.200 Neut % (Auto) 88.6 H Lymph % (Auto) 4.5 L [place] % (Auto) 5.9 Eos % (Auto) 0.6 Baso % (Auto) 0.2 Absolute Neuts (auto) 11.1 H Absolute Lymphs (auto) 0.56 L Total Counted Not Reportable Sodium 140 Potassium 3.8 Chloride 110 H Carbon Dioxide 17.0 L Anion Gap 13 BUN 11 Creatinine 0.82 Estim Creat Clear Calc 101.21 Est GFR (MDRD) Af Amer 122 Est GFR (MDRD) Non-Af 101 BUN/Creatinine Ratio 13.5 Glucose 82 Calcium 7.9 L Phosphorus 1.8 L Magnesium 1.8 Clinical Impression(s) from Imaging Studies Abdomen/Pelvis CT 01/13/19 15:29 IMPRESSION: Concentric thickening of the gutierrez of stomach and narrowing of the lumen consistent with nonspecific gastritis. Diffuse ileus pattern. There are diverticular changes within the sigmoid colon association with segmental thickening of the wall the bowel stranding in the fat and small amount of free fluid likely due to acute diverticulitis. No peridiverticular abscess is observed at this time. Electronically Signed: Romel Zarco MD at 17:08 EDT , Service support , Chest X-Ray 01/13/19 15:35 IMPRESSION: No acute cardiopulmonary pathology Electronically Signed: Romel Zarco MD at 16:59 EDT , Service support , Microbiology 01/13/19 14:40 Blood Culture (Wb) - Anticubital Left Blood Culture - Preliminary Medical Necessity - Tobacco Use Smoking Status: Current every day smoker Tobacco Use: Cigarettes Assessment/Plan All Active Problems Acute diverticulitis (Acute) This is a 63 years old male patient presented to the emergency room because of abdominal pain, found to have acute sigmoid diverticulitis with sepsis. #1 acute sigmoid diverticulitis/sepsis: He is on IV ciprofloxacin and Flagyl. Still having spikes of low-grade fever, other vital signs are stable. White blood cell count stayed the same compared to yesterday. One bottle of blood culture revealed gram-negative rods, urine culture showed no growth. Surgery on the case. Patient still symptomatic, having abdominal tenderness. Plan: Change IV ciprofloxacin to 400 mg IV twice daily, continue other treatments, repeat CBC tomorrow morning. #2 gram-negative bacteremia: Probable source is the acute diverticulitis. He is on IV Cipro and Flagyl as above. Plan as above, plan to repeat blood culture tomorrow. #3 hypertension: Blood pressure stable, continue lisinopril. #4 tobacco abuse: NicoDerm patch. #5 DVT prophylaxis: Subcu Lovenox. This note was generated with [employer] dictation software. It may contain incorrect words, spelling, and punctuation that were not noted in checking the note before signing. Code Visit Inpatient E&M: 06767 Subs Hosp L2
[2019-01-15] MEDS: Morphine 4 MG/ML Syringe IV ×3 (10:22→19:55)
[2019-01-15] MEDS: Ciprofloxacin 400 MG/200 ML BAG 200 MG IV ×2 (10:25→21:58)
--- NOTE | 2019-01-15 11:46 | CASEMGMT ---
RN CM Assessment Presentation: Acute Diverticulitis. 4 day hx of abd pain, GI consult. Intro role of CM and purpose of RN CM assessment to patient in room. Pt is sleepy, but able to participate in assessment. . Demographics, PCP and Pharmacy verified. States he lives independently, no assistance has been required. PCP: Dr. Lainez Specialists: Dr. Henry [facility]: [place] Prescription Benefit: yes. Denies difficulty having prescriptions filled. LNOK: Missael Ojeda, Brother Living Arrangements: Pt lives independently. Denies Transportation: pt states he drives DME: none HHC: none Patient DC goals: Home DC PLAN: Home Zack OLIVER RN ACM
--- NOTE | 2019-01-15 12:04 | CASEMGMT ---
RN CM Assessment Presentation: Acute Diverticulitis. 4 day hx of abd pain, GI consult. Intro role of CM and purpose of RN CM assessment to patient in room. Pt is sleepy, but able to participate in assessment. . Demographics, PCP and Pharmacy verified. States he lives independently, no assistance has been required. PCP: Dr. Lainez Specialists: Dr. Henry [facility]: [place] Prescription Benefit: yes. Denies difficulty having prescriptions filled. LNOK: Missael Ojeda, Brother Living Arrangements: Pt lives independently. Denies Transportation: pt states he drives DME: none HHC: none SW Referral: ETOH dependence. [place], updated. Patient DC goals: Home DC PLAN: Home Zack OLIVER RN ACM
[2019-01-15 14:00] VITALS: BP 126/79; PULSE 72; RESP 16; TEMP 36.5; O2SAT 96
[2019-01-15] MEDS: 0.9% Normal Saline 1,000 ML 100 ML IV (15:23)
--- NOTE | 2019-01-15 16:40 | PCM.PN.SRG ---
Patient Problems: Active and Suspected Problems Acute diverticulitis (Acute) Subjective: still abdominal pain, slightly improved - Physical Exam General: Alert, Oriented x3 Lungs: Clear to auscultation, Normal air movement Cardiovascular: Regular rate, No murmurs Abdomen: Bowel Sounds Present, Soft, Tender - bilateral lower quadrants without diffuse peritoneal signs Vital Signs Temp Pulse Resp BP Pulse Ox 97.7 F L 72 16 126/79 H 96 01/15/19 14:00 01/15/19 14:00 01/15/19 14:00 01/15/19 14:00 01/15/19 14:00 Oxygen Delivery Method Room Air Weight: 80.286 kg Body Mass Index (BMI) 24.0 Intake and Output for Last 24 Hours 01/13/19 01/14/19 01/15/19 23:59 23:59 23:59 Intake Total 4917 / 4917 2117 / 2117 Output Total 1625 / 1625 725 / 725 Balance 3292 / 3292 1392 / 1392 Microbiology Past 72 Hours 01/13/19 15:30 Blood Culture - Preliminary Blood Culture (Wb) - Anticubital Right No growth in 48 hours. 01/13/19 14:40 Blood Culture - Preliminary Blood Culture (Wb) - Anticubital Left Gram negative brandan 01/13/19 17:15 Urine Culture - Preliminary Urine, Clean Catch Culture exhibits no growth. Laboratory Tests Past 24 Hrs 01/15/19 01/15/19 05:22 05:22 WBC 12.5 H RBC 3.97 L Hgb 12.4 L Hct 36.4 L MCV 91.7 MCH 31.2 MCHC 34.1 RDW 12.7 RDW Differential 42.3 Plt Count 140 L MPV 12.5 H Immature Gran % (Auto) 0.200 Neut % (Auto) 88.6 H Lymph % (Auto) 4.5 L [place] % (Auto) 5.9 Eos % (Auto) 0.6 Baso % (Auto) 0.2 Absolute Neuts (auto) 11.1 H Absolute Lymphs (auto) 0.56 L Total Counted Not Reportable Sodium 140 Potassium 3.8 Chloride 110 H Carbon Dioxide 17.0 L Anion Gap 13 BUN 11 Creatinine 0.82 Estim Creat Clear Calc 101.21 Est GFR (MDRD) Af Amer 122 Est GFR (MDRD) Non-Af 101 BUN/Creatinine Ratio 13.5 Glucose 82 Calcium 7.9 L Phosphorus 1.8 L Magnesium 1.8 Medical Necessity - Tobacco Use Smoking Status: Current every day smoker Tobacco Use: Cigarettes Assessment/Plan All Active Problems Acute diverticulitis (Acute) sigmoid diverticulitis-uncomplicated I agree with maintaining the patient on nothing by mouth status for now given his abdominal complaints of discomfort and anorexia. We'll continue IV antibiotics until he has improvement of his abdominal pain and normalization of his white blood cell count. Once this occurs, we'll transition oral antibiotics and restart a low residue diet. I discussed with the patient had few small diverticula on CT scan so I anticipate that he will respond to conservative measures. if patient fails to improve clinically next [address] scan to make sure there is no abscess formation or other abnormalities
[2019-01-15 20:00] VITALS: BP 139/70; PULSE 77; RESP 16; TEMP 37.4; O2SAT 95
[2019-01-16] MEDS: 0.9% Normal Saline 1,000 ML 100 ML IV ×2 (04:32→17:43)
--- NOTE | 2019-01-16 06:06 | PCM.PN.SRG ---
Patient Problems: Active and Suspected Problems Acute diverticulitis (Acute) Subjective: less pain today - Physical Exam General: Alert, Oriented x3 Abdomen: Bowel Sounds Present, Soft, Tender - but improved Vital Signs Temp Pulse Resp BP Pulse Ox 99.3 F H 77 16 139/70 H 95 01/15/19 20:00 01/15/19 20:00 01/15/19 20:00 01/15/19 20:00 01/15/19 20:00 Oxygen Delivery Method Room Air Weight: 80.286 kg Body Mass Index (BMI) 24.0 Intake and Output for Last 24 Hours 01/14/19 01/15/19 01/16/19 23:59 23:59 23:59 Intake Total 4917 / 4917 2117 / 2117 1607 / 1607 Output Total 1625 / 1625 1025 / 1025 925 / 925 Balance 3292 / 3292 1092 / 1092 682 / 682 Microbiology Past 72 Hours 01/13/19 15:30 Blood Culture - Preliminary Blood Culture (Wb) - Anticubital Right No growth in 48 hours. 01/13/19 14:40 Blood Culture - Preliminary Blood Culture (Wb) - Anticubital Left Gram negative brandan 01/13/19 17:15 Urine Culture - Preliminary Urine, Clean Catch Culture exhibits no growth. Laboratory Tests Past 24 Hrs 01/15/19 01/15/19 05:22 05:22 WBC 12.5 H RBC 3.97 L Hgb 12.4 L Hct 36.4 L MCV 91.7 MCH 31.2 MCHC 34.1 RDW 12.7 RDW Differential 42.3 Plt Count 140 L MPV 12.5 H Immature Gran % (Auto) 0.200 Neut % (Auto) 88.6 H Lymph % (Auto) 4.5 L [place] % (Auto) 5.9 Eos % (Auto) 0.6 Baso % (Auto) 0.2 Absolute Neuts (auto) 11.1 H Absolute Lymphs (auto) 0.56 L Total Counted Not Reportable Sodium 140 Potassium 3.8 Chloride 110 H Carbon Dioxide 17.0 L Anion Gap 13 BUN 11 Creatinine 0.82 Estim Creat Clear Calc 101.21 Est GFR (MDRD) Af Amer 122 Est GFR (MDRD) Non-Af 101 BUN/Creatinine Ratio 13.5 Glucose 82 Calcium 7.9 L Phosphorus 1.8 L Magnesium 1.8 Medical Necessity - Tobacco Use Smoking Status: Current every day smoker Tobacco Use: Cigarettes Assessment/Plan All Active Problems Acute diverticulitis (Acute) sigmoid diverticulitis-uncomplicated I agree with maintaining the patient on nothing by mouth status for now given his abdominal complaints of discomfort and anorexia. We'll continue IV antibiotics until he has improvement of his abdominal pain and normalization of his white blood cell count. Once this occurs, we'll transition oral antibiotics and restart a low residue diet. I discussed with the patient had few small diverticula on CT scan so I anticipate that he will respond to conservative measures. low grade fever, would plan for an additional day of IV antibiotics and then convert to orals
[2019-01-16 06:29] LABS: Absolute Lymphocyte Count 1.03 X10^3/ul (0.83-4.51); Basophil# 0.04 X10^3/uL; Basophil% 0.4 % (0-1); Eosinophil# 0.18 X10^3/uL; Eosinophils% 1.6 % (0-5); Hematocrit 40.3 % (40-54); Hemoglobin 13.8 g/dl (13.0-16.5); Lymphocyte # 1.03 X10^3/ul (4.0); Lymphocyte % 9.4 % (19-41); Mean Corp Hgb Conc 34.2 g/gl (32-36); Mean Corpuscular Hgb 31.4 pg (27.0-32.0); Mean Corpuscular Volume 91.6 fL (80-94); Mean Platelet Vol. 11.3 fl (6.2-12.0); Monocyte# 0.75 X10^3/uL; Monocyte% 6.8 % (0-10); Neutrophil # 8.95 X10^3/uL (2.7-7.7); Neutrophil % 81.6 % (47-70); Platelet Count 179 K/mm3 (150-450); RBC Distribution Width CV 13.1 % (11.6-14.6); RBC Distribution Width SD 43.9 fl (35.1-43.9)
[2019-01-16 06:34] LABS: POSITIVE COUNT NO; POSITIVE DIFFERENTIAL NO; POSITIVE MORPHOLOGY NO
--- NOTE | 2019-01-16 08:59 | PCM.PROGNOTE ---
Patient Problems: Active and Suspected Problems Acute diverticulitis (Acute) Subjective: Chief complaint: Follow-up after admission for acute sigmoid diverticulitis, sepsis and gram-negative bacteremia. Patient seen and examined. No acute events overnight. Abdominal pain is getting better, less painful. Denied nausea vomiting. Denies fever chills overnight. His vital signs are stable. - Physical Exam General: Alert, Oriented x3, Cooperative, No apparent distress HEENT: Atraumatic, PERRLA, EOMI, Normocephalic Oral: Moist Mucosa, No Gingival or Mucosal Lesions/ Ulcerations Neck: Supple, No JVD, Negative Carotid Bruits, Trachea Midline, Thyroid Normal Size and Texture Lungs: Clear to auscultation, No rhonchi, No wheeze, No rales, Diminished Cardiovascular: Regular rate, Regular Rhythm, Normal S1, Normal S2, PMI Normal Abdomen: Bowel Sounds Present, Soft, Non-Distended, No Hepato-splenomegaly, Tender - Minimal tenderness. Extremities: No clubbing, No cyanosis, No edema Skin: No rashes, No breakdown Lymphatic: No Cervical, Supraclavicular, or Inguinal Adenopathy Neurological: Cranial nerves II-XII grossly intact, Neuro grossly intact Psych/Mental Status: Normal Affect, Appropriate, Alert and oriented to time, place, person, mood and affect Vital Signs Temp Pulse Resp BP Pulse Ox 99.3 F H 77 16 139/70 H 95 01/15/19 20:00 01/15/19 20:00 01/15/19 20:00 01/15/19 20:00 01/15/19 20:00 Oxygen Delivery Method Room Air Weight: 177 lb 0.005 oz Body Mass Index (BMI) 24.0 Intake and Output for Last 24 Hours 01/14/19 01/15/19 01/16/19 23:59 23:59 23:59 Intake Total 4917 / 4917 2117 / 2117 2124 / 2124 Output Total 1625 / 1625 1025 / 1025 1250 / 1250 Balance 3292 / 3292 1092 / 1092 874 / 874 Microbiology Past 72 Hours 01/13/19 17:15 Urine Culture - Final Urine, Clean Catch Culture exhibits no growth. 01/13/19 14:40 Blood Culture - Preliminary Blood Culture (Wb) - Anticubital Left Bacteroides thetaiotaomicron 01/13/19 15:30 Blood Culture - Preliminary Blood Culture (Wb) - Anticubital Right No growth in 48 hours. Laboratory Tests Past 24 Hrs 01/16/19 06:10 WBC 11.0 RBC 4.40 L Hgb 13.8 Hct 40.3 MCV 91.6 MCH 31.4 MCHC 34.2 RDW 13.1 RDW Differential 43.9 Plt Count 179 MPV 11.3 Immature Gran % (Auto) 0.200 Neut % (Auto) 81.6 H Lymph % (Auto) 9.4 L [place] % (Auto) 6.8 Eos % (Auto) 1.6 Baso % (Auto) 0.4 Absolute Neuts (auto) 9.0 H Absolute Lymphs (auto) 1.03 Total Counted Not Reportable Medical Necessity - Tobacco Use Smoking Status: Current every day smoker Tobacco Use: Cigarettes Assessment/Plan All Active Problems Acute diverticulitis (Acute) This is a 63 years old male patient presented to the emergency room because of abdominal pain, found to have acute sigmoid diverticulitis with sepsis. #1 acute sigmoid diverticulitis/sepsis: Remained on IV ciprofloxacin and Flagyl. Symptoms started to improve, having less abdominal pain. He has been afebrile overnight, white blood cell count is back to normal. Surgery on the case. Plan to continue IV antibiotics for today, maybe we can start him on clear liquids later this evening or tonight if okay with surgery. #2 gram-negative bacteremia: Probable source is the acute diverticulitis. He is on IV Cipro and Flagyl as above. One bottle of blood revealed Bacteroides, the other bottle was negative and showed no growth in 48 hours. Urine culture is negative. Plan for infectious disease consult. #3 hypertension: Blood pressure stable, continue lisinopril. #4 tobacco abuse: NicoDerm patch. #5 DVT prophylaxis: Subcu Lovenox. This note was generated with [id number] dictation software. It may contain incorrect words, spelling, and punctuation that were not noted in checking the note before signing. Code Visit Inpatient E&M: 11826 Subs Hosp L2
[2019-01-16 09:03] VITALS: BP 127/84; PULSE 74; RESP 16; TEMP 36.7; O2SAT 97
[2019-01-16] MEDS: Lisinopril 10 MG Tablet PO (09:19)
[2019-01-16] MEDS: Ciprofloxacin 400 MG/200 ML BAG 200 MG IV ×2 (09:19→22:32)
--- NOTE | 2019-01-16 09:57 | CON.PCM_ITS ---
Problem List (1) Acute diverticulitis Status: Acute Reason for Consult: (+) bcx Consulted by: Dr. Payne History of Present Illness: The patient is a 63 year old M who presented 01/13 with 4 days of progressive abd pain, cramping, fever/chills/shakes, nausea. Sx started as sharp cramping along lower abd. Had colonoscopy about 2 weeks ago, known h/o diverticula. Developed shaking chills. Poor appetite. Pain briefly improved, then returned 01/13 when he returned to work. Came to ED, tmax 102.3, started on cipro/flagyl, CT showed diverticulitis. Surgery following. Fever resolved, appetite starting to improve, pain better. Full ROS performed and neg except as noted above. - Medical History Past Medical History (Chronic Problems): Chronic Problems Hypertension (Chronic) Nicotine dependence (Chronic) Alcohol dependence (Chronic) Allergies/Adverse Reactions: Allergies No Known Allergies Allergy (Verified 01/13/19 15:19) Home Medications: Ambulatory Orders Medication Instructions Recorded Lisinopril [Zestril] 10 mg PO DAILY 01/13/19 - Social History SMOKING STATUS:: Current every day smoker Vital Signs Temp Pulse Resp BP Pulse Ox 98.0 F 74 16 127/84 H 97 01/16/19 09:03 01/16/19 09:03 01/16/19 09:03 01/16/19 09:03 01/16/19 09:03 Oxygen Delivery Method Room Air Weight: 80.286 kg Body Mass Index (BMI) 24.0 Microbiology Past 72 Hours 01/13/19 17:15 Urine Culture - Final Urine, Clean Catch Culture exhibits no growth. 01/13/19 14:40 Blood Culture - Preliminary Blood Culture (Wb) - Anticubital Left Bacteroides thetaiotaomicron 01/13/19 15:30 Blood Culture - Preliminary Blood Culture (Wb) - Anticubital Right No growth in 48 hours. Laboratory Tests Past 24 Hrs 01/16/19 06:10 WBC 11.0 RBC 4.40 L Hgb 13.8 Hct 40.3 MCV 91.6 MCH 31.4 MCHC 34.2 RDW 13.1 RDW Differential 43.9 Plt Count 179 MPV 11.3 Immature Gran % (Auto) 0.200 Neut % (Auto) 81.6 H Lymph % (Auto) 9.4 L [place] % (Auto) 6.8 Eos % (Auto) 1.6 Baso % (Auto) 0.4 Absolute Neuts (auto) 9.0 H Absolute Lymphs (auto) 1.03 Total Counted Not Reportable - Other Studies Radiology: [] reviewed Other Studies: [] Route of nutrition/ use of supplements: [] Nutritional Intake: [] IV Site: [] Cummings Catheter: [] - Physical Exam General: Alert, Oriented x3, Cooperative, No apparent distress HEENT: Atraumatic, PERRLA, EOMI Neck: Supple, No Nodes Lungs: Clear to auscultation, Normal air movement Cardiovascular: Regular rate, Regular Rhythm Abdomen: Bowel Sounds Present, Soft, Non-Distended, Tender - mild in lower abd Extremities: No edema Skin: No rashes IV Site: Peripheral, without redness Musculoskeletal: No Tenderness to Palpation of Joints or Extremities Neurological: Cranial nerves II-XII grossly intact - Assessment/Plan Antibiotics: [] Assessment/Plan: [] Active and Suspected Problems Acute diverticulitis (Acute) sepsis due to acute diverticulitis complicated by 1/2 bcx with bacteroides - overall improving. Fever resolved, hr improved, pain improved, wbc now normal, appetite starting to return. Continue cipro/flagyl. Plan will be for po abx at discharge. Will follow, thank you.
[2019-01-16 13:50] VITALS: BP 121/82; PULSE 70; RESP 16; TEMP 36.7; O2SAT 97
[2019-01-16 20:29] VITALS: BP 137/86; PULSE 75; RESP 18; TEMP 36.6; O2SAT 99
[2019-01-16] MEDS: MELATONIN 3 MG TABLET PO (23:06)
[2019-01-17 02:50] VITALS: BP 120/77; PULSE 73; RESP 18; TEMP 36.4; O2SAT 98
[2019-01-17] MEDS: 0.9% Normal Saline 1,000 ML 100 ML IV (05:06)
--- NOTE | 2019-01-17 06:26 | PN.SURG_ITS ---
Patient Problems: Active and Suspected Problems Acute diverticulitis (Acute) Subjective: passed kidney stone, much less pain - Physical Exam General: Alert, Oriented x3, Cooperative Lungs: Clear to auscultation Cardiovascular: Regular rate, Regular Rhythm Abdomen: Bowel Sounds Present, Soft, Tender - minimally Vital Signs Temp Pulse Resp BP Pulse Ox 97.6 F L 73 18 120/77 98 01/17/19 02:50 01/17/19 02:50 01/17/19 02:50 01/17/19 02:50 01/17/19 02:50 Oxygen Delivery Method Room Air Weight: 80.286 kg Body Mass Index (BMI) 24.0 Intake and Output for Last 24 Hours 01/15/19 01/16/19 01/17/19 23:59 23:59 23:59 Intake Total 2117 / 2117 2124 / 2124 2361 / 2361 Output Total 1025 / 1025 1250 / 1250 1000 / 1000 Balance 1092 / 1092 874 / 874 1361 / 1361 Microbiology Past 72 Hours 01/13/19 14:40 Blood Culture - Preliminary Blood Culture (Wb) - Anticubital Left Bacteroides thetaiotaomicron 01/13/19 17:15 Urine Culture - Final Urine, Clean Catch Culture exhibits no growth. 01/13/19 15:30 Blood Culture - Preliminary Blood Culture (Wb) - Anticubital Right No growth in 48 hours. Laboratory Tests Past 24 Hrs 01/16/19 06:10 WBC 11.0 RBC 4.40 L Hgb 13.8 Hct 40.3 MCV 91.6 MCH 31.4 MCHC 34.2 RDW 13.1 RDW Differential 43.9 Plt Count 179 MPV 11.3 Immature Gran % (Auto) 0.200 Neut % (Auto) 81.6 H Lymph % (Auto) 9.4 L [place] % (Auto) 6.8 Eos % (Auto) 1.6 Baso % (Auto) 0.4 Absolute Neuts (auto) 9.0 H Absolute Lymphs (auto) 1.03 Total Counted Not Reportable Medical Necessity - Tobacco Use Smoking Status: Current every day smoker Tobacco Use: Cigarettes Assessment/Plan All Active Problems Acute diverticulitis (Acute) sigmoid diverticulitis-uncomplicated Will start clears. OK with discharge on oral antibiotics. l
--- NOTE | 2019-01-17 08:29 | DCINST_ITS ---
- Discharge Diagnoses Current Active Problems: Current Active and Chronic Problems Acute diverticulitis (Acute) Hypertension (Chronic) Nicotine dependence (Chronic) Alcohol dependence (Chronic) You will use the following diet at home:: Clear liquid, Other - Light diet, advance as tolerated. Discharge Activity: Return to Normal Activity, May not drive while taking narcotic pain medications. Weight Bearing Status: Weight bearing as tolerated Call your doctor if you observe: Fever of 101 or Higher, Shortness of breath, Dizziness, Fainting spells, Chest pain, Increased palpitations (irregular heartbeat), Uncontrolled pain Additional Instructions: You can use [id number] Aleve or Tylenol for mild to moderate pain. Use OxyIR only for severe pain. Allergies/Adverse Reactions: Allergies No Known Allergies Allergy (Verified 01/13/19 15:19) Medications to take at Discharge Lisinopril [Zestril] 10 mg PO DAILY 01/13/19 Ciprofloxacin HCl 500 mg PO BID #18 tablet 01/17/19 Metronidazole [Flagyl] 500 mg PO Q8H #27 tablet 01/17/19 Oxycodone [Oxyir] 5 mg PO Q12H PRN PRN 4 Days #7 tab 01/17/19 The following prescriptions were given: Oxycodone [Oxyir] 5 mg PO Q12H PRN PRN 4 Days #7 tab PRN Reason: Severe abdominal pain Metronidazole [Flagyl] 500 mg PO Q8H #27 tablet Ciprofloxacin HCl 500 mg PO BID #18 tablet Primary Care Physician: Juanjose Lainez MD [Primary Care Provider] - Please follow up with your Primary Care Physician in: 1-2 weeks. Test Results: Test results from this visit will be discussed in further detail at your follow- up appointment, if applicable.
[2019-01-17 08:38] VITALS: BP 122/78; PULSE 66; RESP 18; TEMP 36.8; O2SAT 96
[2019-01-17] MEDS: Ciprofloxacin 400 MG/200 ML BAG 200 MG IV (09:59)
[2019-01-17] MEDS: Lisinopril 10 MG Tablet PO (10:00)
[2019-01-17 13:05] VITALS: BP 121/66; PULSE 78; RESP 18; TEMP 36.7; O2SAT 96
--- NOTE | 2019-01-17 13:31 | PCM.PN.ID ---
Patient Problems: Active and Suspected Problems Acute diverticulitis (Acute) Subjective: Feeling better, abd pain improved, no fever - Physical Exam General: Alert, Cooperative, No apparent distress Lungs: Clear to auscultation, Normal air movement Cardiovascular: Regular rate, Regular Rhythm Abdomen: Soft, Non Tender, Non-Distended Skin: No rashes Vital Signs Temp Pulse Resp BP Pulse Ox 98.1 F 78 18 121/66 H 96 01/17/19 13:05 01/17/19 13:05 01/17/19 13:05 01/17/19 13:05 01/17/19 13:05 Oxygen Delivery Method Room Air Weight: 80.286 kg Body Mass Index (BMI) 24.0 Intake and Output for Last 24 Hours 01/15/19 01/16/19 01/17/19 23:59 23:59 23:59 Intake Total 2117 / 2117 2124 / 2124 3167 / 3167 Output Total 1025 / 1025 1250 / 1250 1000 / 1000 Balance 1092 / 1092 874 / 874 2167 / 2167 Microbiology Past 72 Hours 01/13/19 14:40 Blood Culture - Preliminary Blood Culture (Wb) - Anticubital Left Bacteroides thetaiotaomicron 01/13/19 17:15 Urine Culture - Final Urine, Clean Catch Culture exhibits no growth. 01/13/19 15:30 Blood Culture - Preliminary Blood Culture (Wb) - Anticubital Right No growth in 48 hours. Medical Necessity - Tobacco Use Smoking Status: Current every day smoker Tobacco Use: Cigarettes Route of nutrition/ use of supplements: [] Nutritional Intake: [] IV Site: [] Cummings Catheter: [] - Assessment/Plan Antibiotics: [] Assessment/Plan: [] Active and Suspected Problems Acute diverticulitis (Acute) sepsis due to acute diverticulitis complicated by 1/2 bcx with bacteroides - overall improving. Fever resolved, hr improved, pain improved, wbc now normal, appetite starting to return. Agree with d/c home on po cipro/flagyl. Will follow, ok for d/c home
--- NOTE | 2019-01-17 15:58 | DS.PCM_ITS ---
Discharge Date and Diagnosis Date of Admission: 01/13/19 Date of Discharge: 01/17/19 - Primary Discharge Diagnosis #1 acute sigmoid diverticulitis. #2 sepsis. #3 bacteroids thetaiotaomicron bacteremia. - Secondary Discharge Diagnosis Chronic Problems Hypertension (Chronic) Nicotine dependence (Chronic) Alcohol dependence (Chronic) Hospital Course and Treatment Imaging Results: Clinical Impression(s) from Imaging Studies Abdomen/Pelvis CT 01/13/19 15:29 IMPRESSION: Concentric thickening of the gutierrez of stomach and narrowing of the lumen consistent with nonspecific gastritis. Diffuse ileus pattern. There are diverticular changes within the sigmoid colon association with segmental thickening of the wall the bowel stranding in the fat and small amount of free fluid likely due to acute diverticulitis. No peridiverticular abscess is observed at this time. Electronically Signed: Romel Zarco MD at 17:08 EDT , Service support , Chest X-Ray 01/13/19 15:35 IMPRESSION: No acute cardiopulmonary pathology Electronically Signed: Romel Zarco MD at 16:59 EDT , Service support , Dr. Henry, general surgery. Dr. Hernandez, infectious disease. Operations: None Procedures: None Summary of Care Provided: Patient seen and examined on the day of discharge and appeared to be stable to be discharged home. He denied any more abdominal pain, no nausea or vomiting. He tolerated clear liquids. His vitals are stable. The patient is a 63 year old M admitted because of abdominal pain and he was found to have acute sigmoid diverticulitis complicated by sepsis and bacteremia. On admission, CT scan abdomen and pelvis with IV contrast revealed thickening of the wall of the sigmoid colon with small amount of free fluid consistent with acute diverticulitis. There was no evidence of diverticular abscess or bowel perforation. Patient was treated conservatively with IV fluids, kept on n.p.o., IV pain medications, IV antibiotics and IV antiemetics. With above-mentioned treatment, patient symptoms improved very slowly and his white blood cell count went back to normal. His blood culture revealed Bacteroides. His urine culture showed no growth. General surgery consulted and recommended to continue conservative treatment and there was no indication for surgical intervention. During this hospital stay, patient passed several small kidney stones and he was asymptomatic and his kidney function was normal. With treatment, patient symptoms improved and he was able to tolerate clear liquids on the day of discharge. Infectious disease consulted about the bacteremia and recommended to continue patient on oral Flagyl and ciprofloxacin upon discharge. Patient discharged home in a stable medical condition, discharged on Flagyl and Augmentin to complete 2 weeks of treatment, recommended to use light diet and advance as tolerated, was given prescription for OxyIR as needed for pain, recommended follow-up with PCP in 1-2 weeks and follow-up with general surgery if needed. - Physical Exam General: Alert, Oriented x3, Cooperative, No apparent distress HEENT: Atraumatic, PERRLA, EOMI, Normocephalic Oral: Moist Mucosa Neck: Supple, No JVD, Negative Carotid Bruits, Trachea Midline, Thyroid Normal Size and Texture Lungs: Clear to auscultation, Normal air movement, No rhonchi, No wheeze, No rales Cardiovascular: Regular rate, Regular Rhythm, Normal S1, Normal S2, No murmurs, PMI Normal Abdomen: Bowel Sounds Present, Soft, Non Tender, Non-Distended, No Hepato- splenomegaly Extremities: No clubbing, No cyanosis, No edema Skin: No rashes, No breakdown Lymphatic: No Cervical, Supraclavicular, or Inguinal Adenopathy Neurological: Cranial nerves II-XII grossly intact, Motor Exam 5/5 strength throughout Psych/Mental Status: Normal Affect, Appropriate, Alert and oriented to time, p lace, person, mood and affect Vital Signs Temp Pulse Resp BP Pulse Ox 98.1 F 78 18 121/66 H 96 01/17/19 13:05 01/17/19 13:05 01/17/19 13:05 01/17/19 13:05 01/17/19 13:05 Oxygen Delivery Method Room Air Weight: 177 lb 0.005 oz Body Mass Index (BMI) 24.0 Intake and Output for Last 24 Hours 01/15/19 01/16/19 01/17/19 23:59 23:59 23:59 Intake Total 2117 / 2117 2124 / 2124 3167 / 3167 Output Total 1025 / 1025 1250 / 1250 1000 / 1000 Balance 1092 / 1092 874 / 874 2167 / 2167 Microbiology Past 72 Hours 01/13/19 14:40 Blood Culture - Preliminary Blood Culture (Wb) - Anticubital Left Bacteroides thetaiotaomicron 01/13/19 17:15 Urine Culture - Final Urine, Clean Catch Culture exhibits no growth. 01/13/19 15:30 Blood Culture - Preliminary Blood Culture (Wb) - Anticubital Right No growth in 48 hours. Discharge Activity: Return to Normal Activity, May not drive while taking narco tic pain medications. Weight Bearing Status: Weight bearing as tolerated Call your doctor if you observe: Fever of 101 or Higher, Shortness of breath, Dizziness, Fainting spells, Chest pain, Increased palpitations (irregular heartbeat), Uncontrolled pain Home Medications: Medications to take at Discharge Lisinopril [Zestril] 10 mg PO DAILY 01/13/19 Ciprofloxacin HCl 500 mg PO BID #18 tablet 01/17/19 Metronidazole [Flagyl] 500 mg PO Q8H #27 tablet 01/17/19 Oxycodone [Oxyir] 5 mg PO Q12H PRN PRN 4 Days #7 tab 01/17/19 Following Prescrptions Were Given to Patient: Oxycodone [Oxyir] 5 mg PO Q12H PRN PRN 4 Days #7 tab PRN Reason: Severe abdominal pain Metronidazole [Flagyl] 500 mg PO Q8H #27 tablet Ciprofloxacin HCl 500 mg PO BID #18 tablet Primary Care Physician: Juanjose Lainez MD [Primary Care Provider] - Please follow up with your Primary Care Physician in: 1-2 weeks. Disposition: Home Minutes spent on discharge:: 27 Patient Condition:: Stable Medical Necessity - Tobacco Use Smoking Status: Current every day smoker Tobacco Use: Cigarettes Meaningful Use Info Meaningful Use Diagnoses (Choose all that apply): None applicable Code Visit Inpatient E&M: 19641 Disch Hosp
== END 2019-01-17 13:20 | disposition home or self-care (01) | DRG 872 ==
LOC: ED 15:56 → MS2 18:04
PROVIDERS: Internal Medicine; Admitting Provider Internal Medicine; Emergency Provider Emergency Medicine; Family Provider Internal Medicine; PCP Internal Medicine; Visit Provider Hospitalist
DX: A41.50 Gram-negative sepsis, unspecified (principal); K57.32 Diverticulitis of large intestine without perforation or abscess without bleeding; I10 Essential (primary) hypertension; F17.210 Nicotine dependence, cigarettes, uncomplicated; N20.0 Calculus of kidney; F10.20 Alcohol dependence, uncomplicated; F10.21 Alcohol dependence, in remission
CPT/HCPCS: 36415; 71045; 74177; 80048; 80053; 81001; 83605; 83735; 84100; 85025; 85610; 85730; 87040; 87077; 87086; 93005; 99284; 99406; J7030; Q9967; A4216; J0744; J2405; J3490

== ENCOUNTER → 2021-02-11 06:21 | Outpatient (CLI) | payer MEDICARE, OTHER, SELFPAY ==
[2019-01-13 18:57] VITALS: BMI 24.0
--- NOTE | 2021-02-11 08:11 | STRESSREP ---
Stress Test Report Date: 02-11-2021 Procedure: Exercise tolerance test/imaging study Indications: Abnormal ECG; fatigue; shortness of breath Consent: Per the patient Procedure: The patient exercised on a John protocol for 7 minutes and 45 seconds completing Stage II and 1 minute and 45 seconds of Stage III achieving a peak heart rate of 142 bpm (91% predicted maximal heart rate) with a peak blood pressure 150/64 mmHg and a peak MET capacity of 9 METs. The baseline ECG demonstrated sinus bradycardia; right bundle branch block pattern. The peak exercise ECG demonstrated no obvious ECG changes. There was a rare PAC/PVC during exercise and recovery. The functional capacity was considered average. There was no complaint of chest discomfort during exercise or recovery. The examination was discontinued secondary to dyspnea and leg discomfort. Impression: 1. Technically adequate (percent predicted maximal heart rate greater than 85%) exercise tolerance test 2. Peak exercise ECG with no obvious ECG changes 3. There was a rare PAC/PVC during exercise and recovery 4. Nuclear images pending Myocardial perfusion imaging study: Technique: The patient was injected with 10.5 mCi of technetium 99m Cardiolite and subsequently rest SPECT Cardiolite nuclear imaging was obtained in the horizontal long, vertical long, and short axis views. The patient exercised on a John protocol for 7 minutes and 45 seconds completing Stage II and 1 minute and 45 seconds of Stage III achieving a peak heart rate of 142 bpm (91% predicted maximal heart rate) with a peak blood pressure 150/64 mmHg and a peak MET capacity of 9 METs. The patient was injected with 32.7 mCi of technetium 99m Cardiolite and subsequently stress SPECT Cardiolite nuclear imaging was obtained in the horizontal long, vertical long, and short axis views. A gated Cardiolite study at peak stress was obtained. Interpretation: Rest and stress SPECT Cardiolite nuclear imaging status post realignment, normalization, and attenuation correction, demonstrates at rest the appearance of a small area of subtle diminished tracer uptake in the mid anterior segments which appears to improve/normalize following stress and otherwise a small area of subtle diminished tracer uptake near the apical segments without significant change between rest and stress. There is end systolic thickening and brightening. The gated Cardiolite study demonstrates myocardial thickening and inward wall motion. The reported LVEF is 60%. Impression: 1. Rest and stress SPECT Cardiolite nuclear imaging demonstrate myocardial perfusion changes at rest which appear to improve/normalize following stress appearing compatible with shifting soft tissue attenuation/artifact as well as myocardial perfusion changes appearing compatible with physiologic apical thinning with no myocardial perfusion changes considered diagnostic for associated stress-induced myocardial ischemia. 2. The gated Cardiolite study reports an LVEF of 60%. This note was generated with [employer] software. It may contain incorrect words, spelling, and punctuation that were not noted in checking the note before signing.
== END ==
PROVIDERS: PCP Internal Medicine; Referring Provider Internal Medicine; Visit Provider Internal Medicine
DX: R53.83 Other fatigue (principal); R94.31 Abnormal electrocardiogram [ECG] [EKG]; R07.9 Chest pain, unspecified; R00.2 Palpitations
CPT/HCPCS: 78452; 93017; A9500; A4216

== ENCOUNTER 2021-07-30 17:07 | Emergency (ER) | payer MEDICARE, OTHER, SELFPAY ==
[2021-07-30 17:07] VITALS: BP 180/87; PULSE 87; RESP 16; TEMP 36.3; O2SAT 97; BMI 22.8
--- NOTE | 2021-07-30 17:18 | CT_ITS ---
EXAM: CT ABDOMEN AND PELVIS WITH INTRAVENOUS CONTRAST CLINICAL INDICATION: Right lower quadrant pain TECHNIQUE: Helically acquired images were obtained of the abdomen and pelvis with intravenous contrast. This CT exam was performed using one or more of the following dose reduction techniques: automated exposure control, adjustment of the mA and/or kV according to patient size, and/or use of iterative reconstruction technique. This report was created using abusix report generation technology. CONTRAST: IV 100mL [id number] COMPARISON: 01/13/2019 FINDINGS: LOWER THORAX: Unremarkable. Lung bases are clear. No cardiomegaly. No significant pericardial effusion. ABDOMEN: LIVER: Unremarkable. Homogeneous. No focal mass. GALLBLADDER AND BILE DUCTS: The gallbladder appears surgically absent. No intra- or extrahepatic biliary ductal dilation. PANCREAS: Unremarkable. No focal cystic or solid mass. SPLEEN: Simple splenic cyst. No required imaging follow-up needed given high likelihood of benign nature. ADRENALS: Unremarkable. No nodules. KIDNEYS AND URETERS: 4.3 mm calculus of the right mid ureter (at L5 level) causing right hydronephrosis/hydroureter/obstruction. Right perinephric edema likely relates to obstruction. At least 2 calculi of the right kidney measure up to 8 mm. Normal renal size and position. STOMACH AND BOWEL: Unremarkable. No stomach or bowel distention. No focal inflammatory change. PELVIS: APPENDIX: Surgical clips in the right lower quadrant suggests prior appendectomy. No evidence of acute appendicitis. BLADDER: Unremarkable. REPRODUCTIVE: Prostate is enlarged. ABDOMEN and PELVIS: INTRAPERITONEAL SPACE: Unremarkable. No ascites or other fluid collection. No free air. BONES/JOINTS: Unremarkable. No suspicious lytic or blastic abnormality. SOFT TISSUES: Unremarkable. No discrete abdominal or pelvic wall hernia. VASCULATURE: Abdominal aortic aneurysm (fusiform) measures 3.6 x 3.6 cm, mildly increased in size since prior study of 2018. Fusiform ectasia of the right common iliac artery measures 2.0 cm. LYMPH NODES: Unremarkable. No enlarged lymph nodes. CT/Abdomen/Pelvis W IV Cont ONLY IMPRESSION: 1. 4.3 mm calculus of the right mid ureter (at L5 level) causing right hydronephrosis/hydroureter/obstruction. 2. Abdominal aortic aneurysm (fusiform) measures 3.6 x 3.6 cm, mildly increased in size since prior study of 2018. Electronically Signed: Lee Siegel MD (Brooks) at 18:37 EDT , Service support ,
--- NOTE | 2021-07-30 17:20 | EDS_ITS ---
HPI HPI - GI History of Present Illness Chief Complaint: Abd Pain Informant: patient Abdominal Pain/Flank Pain Onset: Today and Hours Context: Sudden Onset Timing: Continuous Quality: Aching Location: RLQ Current Severity: Mild Worsened by: Nothing Relieved by: Nothing Nausea/Vomiting/Emesis GI Symptom: Negative for Nausea Onset: Today Diarrhea/Melena/Hematochezia GI Symptom: Negative for Diarrhea, Melena and Hematochezia Associated Symptoms Associated Symptoms: Positive for Hematuria; Negative for Dysuria and Frequency Narrative Narrative: 66-year-old male history of prior diverticulitis and prior kidney stones. Thinks this is diverticulitis. He has had a prior appendectomy and cholecystectomy. He states around 8 AM this morning he had relatively sudden onset of right lower quadrant abdominal pain. He denies nausea, vomiting or diarrhea. No dysuria. He has had some mild gross hematuria. No fever. Nothing particularly makes the pain better or worse. Currently is having no back pain. Prior similar symptoms: Yes Recent Illness/Hospitalization: No PFSH PFSH Home Medications lisinopril 10 mg PO DAILY 01/13/19 [History Last Taken 01/13/19] ciprofloxacin HCl 500 mg PO BID #18 tab 01/17/19 [Rx Last Taken Unknown] metronidazole 500 mg PO Q8H #27 tab 01/17/19 [Rx Last Taken Unknown] hydrocodone-acetaminophen 1 tab PO Q4H PRN 4 Days #14 tab 07/30/21 [Rx Last Taken Unknown] hydrocodone-acetaminophen 1 tab PO Q4H PRN 4 Days #14 tab 07/30/21 [Rx Last Taken Unknown] Allergy/AdvReac Type Severity Reaction Status Date / Time No Known Allergies Allergy Verified 01/13/19 15:19 Social History Smoking Status: Current every day smoker tobacco type: cigarettes ROS ROS ED ROS Narrative Right lower quadrant abdominal pain. Hematuria. Review of Systems ROS Unobtainable: Denies due to encephalopathy Constitutional Constitutional ED: Denies fever(s) ENT ENT ED: Denies ear pain Cardiovascular Cardiovascular: Denies chest pain Respiratory/Chest Respiratory/Chest: Denies dyspnea Gastrointestinal Gastrointestinal: Reports abdominal pain; Denies diarrhea, nausea or vomiting Genitourinary Genitourinary ED: Reports hematuria; Denies dysuria Musculoskeletal Musculoskeletal: Denies myalgias Integumentary Denies rash Neurologic Neurologic: Denies headache(s) Psychiatric Psychiatric: Denies depression Endocrine Endocrinology: Denies polyuria Hematologic/Lymphatic Hematologic/Lymphatic: Denies easy bruising Allergic/Immunologic Allergic/Immunologic ED: Denies urticaria EXAM Physical Exam Narrative Exam Narrative: Male no acute distress vital signs stable afebrile. HEENT exam unremarkable. Lungs are clear. Heart regular rhythm no murmur. Abdomen soft nondistended normal bowel sounds no peritoneal signs. He does have mild right lower quadrant tenderness. There is no hernia or mass. Moving all 4 extremities. No edema. Back nontender. No CVA tenderness. Neurologically awake alert with no focal motor deficits. Const Vital Signs: 07/30/21 17:07 Temperature 97.4 F L Temperature Source Temporal Pulse Rate 87 Respiratory Rate 16 Blood Pressure 180/87 H Blood Pressure Mean 118 Pulse Ox 97 Oxygen Delivery Method Room Air Positive well nourished and well developed; Negative for obese, cachectic, contractures or unkempt General Appearance ED: well developed and NAD; Negative for unkempt, cachectic, contractures or pallor Nutritional Appearance: Negative for cachectic or obese HEENT Reports moist mucous membranes normocephalic and atraumatic Eyes PERRL and EOMs intact bilaterally Neck no lymphadenopathy, supple and no JVD Resp normal respiratory effort and clear to auscultation bilaterally Auscultation: Negative for rales, rhonchi or wheezes Cardio regular rate, regular rhythm, S1 normal heart sound, S2 normal heart sound and no murmurs GI non-distended and no masses; Negative for non-tender Auscultation: normoactive bowel sounds Palpation: soft and tender; Negative for guarding, rigid or rebound tenderness present Back/Spine no CVA tenderness General Back: Negative for CVA tenderness Extremity full ROM General Extremety ED: Negative for edema or tenderness General Extremity: Negative for edema Neuro moves all extremities Sensorium / Orientation: alert, oriented to person, oriented to place and oriented to time; Negative for orientation impaired, confused, lethargic or st uporous Motor Exam: strength 5/5 throughout Psych mental status grossly normal Appearance: Negative for unkempt Skin no wounds General Skin Exam: Negative for jaundice or pallor Lesions: no lesions Rashes: no rashes MDM MDM MDM Narrative Medical decision making narrative: 66-year-old male right lower quadrant abdominal pain. Prior appendectomy. Prior cholecystectomy. Kidney stone versus diverticulitis. Labs and CT and urinalysis being obtained. At this time patient did not want anything for pain or nausea. Repeat exam patient is doing well at 7:10 PM. He and I went over all of his test results and his CAT scan results showing a right mid ureter kidney stone with obstruction. He is doing well. He is comfortable being discharged home. He does not wear the at this time for pain but will take a prescription for home. Lab Data Attestation: I reviewed the patient's lab results. Lab results narrative: CBC shows normal white count 10. Hemoglobin 14. Linette mistries show sodium 133. Normal gap of seven normal BUN and creatinine. Glucose of 96. Urine showed greater than 100 red cells but no signs of infection. No nitrates or bacteria. No white cells. Labs: Laboratory Results - last 24 hr 07/30/21 07/30/21 07/30/21 17:15 17:15 17:23 WBC 10.7 RBC 4.39 L Hgb 14.2 Hct 41.4 MCV 94.3 H MCH 32.3 H MCHC 34.3 RDW Std Deviation 43.5 RDW Coeff of Kirk 12.5 Plt Count 182 MPV 12.1 H Immature Gran % (Auto) 0.400 Neut % (Auto) 80.1 H Lymph % (Auto) 11.9 L Ashley % (Auto) 7.0 Eos % (Auto) 0.2 Baso % (Auto) 0.4 Absolute Neuts (auto) 8.6 H Absolute Lymphs (auto) 1.27 Nucleated RBC % 0 Sodium 133 L Potassium 4.1 Chloride 99 Carbon Dioxide 27.0 Anion Gap 7 BUN 12 Creatinine 1.22 Estim Creat Clear Calc 64.20 Est GFR (MDRD) Af Amer 76 Est GFR (MDRD) Non-Af 63 BUN/Creatinine Ratio 9.8 L Glucose 96 Calcium 9.3 Urine Color Yellow Urine Clarity Cloudy Urine pH 7.0 Ur Specific [place] 1.010 Urine Protein 30 H Urine Glucose (UA) Normal Urine Ketones 5 H Urine Occult Blood 250 H Urine Nitrite Negative Urine Bilirubin Negative Urine Urobilinogen Normal Ur Leukocyte Esterase 25 H Urine RBC > 100 SEEN Urine WBC 0 SEEN Ur Squamous Epith Cells 0 SEEN Urine Bacteria 0 SEEN Urine Mucus 0 SEEN Radiography Diagnostic Testing: Clinical Impression(s) from Imaging Studies Abdomen/Pelvis CT 07/30/21 17:18 IMPRESSION: 1. 4.3 mm calculus of the right mid ureter (at L5 level) causing right hydronephrosis/hydroureter/obstruction. 2. Abdominal aortic aneurysm (fusiform) measures 3.6 x 3.6 cm, mildly increased in size since prior study of 2018. Electronically Signed: Lee Siegel MD (Brooks) at 18:37 EDT , Service support , Discharge Plan Triage Chief Complaint: Abd Pain ED Provider: Missael Noguera Dx/Rx/DC Orders Clinical Impression: Kidney stone on right side Instructions: ED Kidney Stone w/ Colic Prescriptions: New hydrocodone-acetaminophen 5-325 mg tablet 1 tab PO Q4H PRN (Reason: pain) 4 Days Qty: 14 RF: 0 hydrocodone-acetaminophen 5-325 mg tablet 1 tab PO Q4H PRN (Reason: pain) 4 Days Qty: 14 RF: 0 No Action lisinopril 10 MG tablet 10 mg PO DAILY RF: 0 ciprofloxacin HCl 500 MG tablet 500 mg PO BID Qty: 18 RF: 0 metronidazole 500 MG tablet 500 mg PO Q8H Qty: 27 RF: 0 Primary Care Provider: Juanjose Lainez Referrals: Joe Carnes MD [STAFF PHYSICIAN] - As soon as possible Juanjose Lainez MD [Primary Care Provider] - Activity Restrictions/Additional Instructions: You have a kidney stone on the right causing your pain. Plenty of fluids. Rest. Tylenol Motrin for pain. [place] for more severe pain. Strain urine for pass stone. Return if intractable pain, intractable vomiting or fever. Otherwise follow-up with a urologist. Disposition Disposition: Home, Self Care
[2021-07-30 17:37] LABS: Bacteria 0 SEEN /hpf (None Seen); Mucous, Urine 0 SEEN /hpf (<or=2+); Squamous Epithelial Cells - UA 0 SEEN /hpf (0-5); White Blood Cells 0 SEEN /hpf (0-5)
[2021-07-30 17:45] LABS: Absolute Lymphocyte Count 1.27 X10^3/uL (0.83-4.51); Absolute Neutrophil Count 8.6 X10^3/uL (2.0-7.7); Basophil# 0.04 X10^3/uL; Basophil% 0.4 % (0-1); Eosinophil# 0.02 X10^3/uL; Eosinophils% 0.2 % (0-5); Hematocrit 41.4 % (40-54); Hemoglobin 14.2 g/dL (13.0-16.5); Lymphocyte # 1.27 X10^3/ul (0.83-4.51); Lymphocyte % 11.9 % (19-41); Mean Corp Hgb Conc 34.3 g/dL (32-36); Mean Corpuscular Hgb 32.3 pg (27.0-32.0); Mean Corpuscular Volume 94.3 fL (80-94); Mean Platelet Vol. 12.1 fl (6.2-12.0); Monocyte# 0.75 X10^3/uL; NRBC Flagged by Analyzer 0 % (0-5); Neutrophil # 8.55 X10^3/uL (2.7-7.7); Neutrophil % 80.1 % (47-70); Platelet Count 182 K/mm3 (150-450); RBC Distribution Width CV 12.5 % (11.6-14.6); RBC Distribution Width SD 43.5 fl (35.1-43.9); Red Blood Count 4.39 M/mm3 (4.6-6.2); White Blood Count 10.7 K/mm3 (4.4-11.0)
[2021-07-30 17:45] LABS: Color, Urine Yellow (Yellow); Glucose, Dipstick Normal (Normal); Ketone-Dipstick 5 mg/dl (Negative); Leukocyte Esterase-Dipstick 25 /ul (Negative); Nitrite-Dipstick Negative (Negative); Occult Blood-Urine 250 /ul (Negative); Protein-Dipstick 30 mg/dl (Negative); Urine Bilirubin Dipstick Negative (Negative); Urine Clarity Cloudy (Clear); Urine Urobilinogen Normal (Normal)
[2021-07-30 18:00] LABS: Anion Gap 7 (5-15); BUN 12 mg/dL (7-18); BUN/Creat Ratio 9.8 RATIO (10-20); Calcium,Total 9.3 mg/dL (8.5-10.1); Chloride 99 mmol/L (98-107); Creatinine, Serum 1.22 mg/dL (0.70-1.30); EST Glomerular Filtration Rate 63 mL/min (>60); Est Glom Filt Rate - Afr Amer 76 mL/min (>60); Glucose 96 mg/dL (74-106); Potassium 4.1 mmol/L (3.5-5.1); Sodium Level 133 mmol/L (136-145)
[2021-07-30 18:03] LABS: Red Blood Cells-Urine > 100 SEEN /hpf (0-5)
[2021-07-30 19:22] VITALS: BP 153/98; PULSE 72; RESP 15; O2SAT 100
== END 2021-07-30 19:29 | disposition home or self-care (01) ==
PROVIDERS: Emergency Provider Emergency Medicine; PCP Internal Medicine
DX: N13.2 Hydronephrosis with renal and ureteral calculous obstruction (principal); I71.4 Abdominal aortic aneurysm, without rupture; F17.210 Nicotine dependence, cigarettes, uncomplicated; Z90.49 Acquired absence of other specified parts of digestive tract; Z90.89 Acquired absence of other organs; Z79.899 Other long term (current) drug therapy; Z87.442 Personal history of urinary calculi
CPT/HCPCS: 74177; 80048; 81001; 85025; 99283; J7030; Q9967; A4216

== ENCOUNTER → 2021-08-16 14:04 | Outpatient (CLI) | payer MEDICARE, OTHER, SELFPAY ==
[2021-08-16 15:15] LABS: Hematocrit 40.9 % (40-54); Mean Corp Hgb Conc 34.2 g/dL (32-36); Mean Corpuscular Volume 93.6 fL (80-94); Platelet Count 146 K/mm3 (150-450); RBC Distribution Width CV 12.3 % (11.6-14.6); RBC Distribution Width SD 42.9 fl (35.1-43.9); Red Blood Count 4.37 M/mm3 (4.6-6.2); White Blood Count 6.1 K/mm3 (4.4-11.0)
[2021-08-16 15:37] LABS: Anion Gap 6 (5-15); BUN 13 mg/dL (7-18); BUN/Creat Ratio 14.6 RATIO (10-20); Calcium,Total 9.5 mg/dL (8.5-10.1); Chloride 104 mmol/L (98-107); Creatinine, Serum 0.89 mg/dL (0.70-1.30); EST Glomerular Filtration Rate 91 mL/min (>60); Est Glom Filt Rate - Afr Amer 110 mL/min (>60); Glucose 89 mg/dL (74-106); Sodium Level 137 mmol/L (136-145)
== END ==
PROVIDERS: PCP Internal Medicine; Visit Provider Urology
DX: Z01.812 Encounter for preprocedural laboratory examination (principal); I10 Essential (primary) hypertension
CPT/HCPCS: 36415; 80048; 85027

== ENCOUNTER 2021-10-11 10:15 | Outpatient (CLI) | payer MEDICARE, OTHER, SELFPAY ==
[2021-10-12 13:43] LABS: PSA, Free 1.42 ng/mL; PSA, Free % 22.2 % (.); PSA, Total Ultrasensitive 6.4 ng/mL (0.0-4.0)
== END 2021-10-11 23:59 | disposition short-term general hospital (02) ==
LOC: LAB 10:21
PROVIDERS: PCP Internal Medicine; Referring Provider Urology; Visit Provider Urology
DX: R97.20 Elevated prostate specific antigen [PSA] (principal); Z12.5 Encounter for screening for malignant neoplasm of prostate
CPT/HCPCS: 36415; 84153; 84154; G0103

== ENCOUNTER → 2022-04-17 | Outpatient (CLI) | payer MEDICARE, OTHER, SELFPAY ==
[2022-04-20 14:55] LABS: PSA, Free 1.52 ng/mL; PSA, Free % 17.1 % (.); PSA, Total Ultrasensitive 8.9 ng/mL (0.0-4.0)
== END | disposition home or self-care (01) ==
PROVIDERS: PCP Internal Medicine; Referring Provider Urology; Visit Provider Urology
DX: R97.20 Elevated prostate specific antigen [PSA] (principal)
CPT/HCPCS: 36415; 84153; 84154

== ENCOUNTER → 2022-05-22 | Outpatient (CLI) | payer MEDICARE, OTHER, SELFPAY ==
--- NOTE | 2022-05-22 | PROSBIL_PTH ---
PATIENT: SHADY LOVE LOC: [facility] U#:[id number] AGE/SX: 67/M ROOM: RE05/22/[address]: Dr. Joe Carnes MD : 1955 BED: DIS: 05/22/2022 SPEC #: [id number] RECD: 05/22/22 17:04 STATUS: ZAY REJanes #: [id number] GRADY: 05/22/22 00:[address]: Joe Carnes DEPT: SURGICAL PATHOLOGY RECD BY: Misael Silva ENTERED: 05/23/22 10:55 SP TYPE: PROST BX ERICKSON DR: Dr. Juanjose Lainez MD Tissues: A - PROSTATE RIGHT B - PROSTATE RIGHT C - PROSTATE RIGHT D - PROSTATE LEFT E - PROSTATE LEFT F - PROSTATE LEFT Procedures: PROSTATE BX HEADER OPERATION: Prostate biopsy PRE-OP DIAGNOSIS: Elevated PSA R97.20 TISSUE SUBMITTED: A - Right apex, B - Right mid, C - Right base, D - Left apex, E - Left mid, F - Left base MICROSCOPIC DIAGNOSIS A. Right prostate, apex, core biopsy: Prostatic adenocarcinoma. [place] grade: 3+3=6 Number of cores involved: 1/1 Proportion of tissue involved: ~10% Perineural invasion: Not identified. Greatest tumor length: 0.5 cm, discontinuous See comment. B. Right prostate, mid, core biopsy: Prostatic adenocarcinoma. Ibis grade: 3+3=6 Number of cores involved: 2/2 Proportion of tissue involved: <5% Perineural invasion: Not identified. Greatest tumor length: <0.1 cm. Focal high-grade prostatic intraepithelial neoplasia (HGPIN). See comment. C. Right prostate, base, core biopsy: Focal high-grade prostatic intraepithelial neoplasia (HGPIN). See comment. D. Left prostate, apex, core biopsy: Prostate tissue, negative for malignancy. E. Left prostate, mid, core biopsy: Two minute foci of prostatic adenocarcinoma. Ibis grade: 3+3=6 Number of cores involved: 2/2 Proportion of tissue involved: <5% Perineural invasion: Not identified. Greatest tumor length: 0.1 cm See comment. F. Left prostate, base, core biopsy: Focal high-grade prostatic intraepithelial neoplasia (HGPIN). SJ:brandon 05/24/2022 COMMENT A-C & E - Immunohistochemistry ([id number]) supports the above diagnosis. Case has been reviewed in consultation with Dr. An who concurs with the above diagnosis. IDC:AM MICROSCOPIC DESCRIPTION Slides are reviewed. GROSS DESCRIPTION A - Received is one container designated prostate, right apex. The specimen consists of one elongated fragment of light valladares-white soft tissue measuring 1.5 cm in length and 0.1 cm in diameter. The specimen is totally submitted in one cassette. B - Received is one container designated prostate, right mid. The specimen consists of two elongated fragments of light valladares-white soft tissue each measuring 1.5 cm in length and 0.1 cm in diameter. The specimen is totally submitted in one cassette. C - Received is one container designated prostate, right base. The specimen consists of two elongated fragments of light valladares-white soft tissue each measuring 1.5 cm in length and 0.1 cm in diameter. The specimen is totally submitted in one cassette. D - Received is one container designated prostate, left apex. The specimen consists of one elongated fragment of light valladares-white soft tissue measuring 1 cm in length and 0.1 cm in diameter. The specimen is totally submitted in one cassette. E - Received is one container designated prostate, left mid. The specimen consists of two elongated fragments of light valladares-white soft tissue each measuring 1 cm in length and 0.1 cm in diameter. The specimen is totally submitted in one cassette. F - Received is one container designated prostate, left base. The specimen consists of two elongated fragments of light valladares-white soft tissue each measuring 1 cm in length and 0.1 cm in diameter. The specimen is totally submitted in one cassette. / AM:brandon 05/24/2022 TC:0 CPT: G0146 ADDENDUM ADDENDUM ADDENDUM ADDENDUM ADDENDUM ADDENDUM ADDENDUM ADDENDUM 06/28/2022 11:37 ADDENDUM 06/28/2022 11:37 ADDENDUM 06/28/2022 11:37 ADDENDUM 06/28/2022 11:37 ADDENDUM 06/28/2022 11:37 An order for Oncotype testing was received from Dr. Carnes. This necessitated case review, block and slide selection by pathologist at [facility]. Genomic Prostate Score = 28 Results of the complete Oncotype testing ([employer] report) are viewable in EMR under: Reports - Pathology - Lab Pathology Report, Scanned.
--- NOTE | 2022-05-22 | IMM_PTH ---
PATIENT: SHADY LOVE LOC: [facility] U#:[id number] AGE/SX: 67/M ROOM: RE05/22/[address]: Dr. Joe Carnes MD : 1955 BED: DIS: 05/22/2022 SPEC #: [id number] RECD: 05/24/22 12:26 STATUS: ZAY REQ #: [id number] GRADY: 05/22/22 00:[address]: Joe Carnes DEPT: IMMUNOHISTOCHEMISTRY RECD BY: Cathy Singleton ENTERED: 05/24/22 12:27 SP TYPE: IMMUNO OTHR DR: Dr. Juanjose Lainez MD Tissues: A - PROSTATE RIGHT B - PROSTATE RIGHT C - PROSTATE RIGHT E - PROSTATE LEFT Procedures: 34BE12 (add) P40 (add) 34BE12 (initial) PHYSICIAN & INSTITUTION [place] [id number] SPECIMEN INFORMATION: Tissue Source: A - Right apex, B - Right mid, C - Right base, E - Left mid Clinical Info: Elevated PSA Specimen Number: [id number] A-C & E CPT code: 52081, 95187 x7 METHODOLOGY: Deparaffinized sections of prefer/formalin-fixed tissue or PAP/DQ stained slides are incubated with monoclonal/polyclonal antibodies/oligonucleotide probes. Localization is made via biotin free immunoperoxidase method. Appropriate controls are performed and reacted as expected. Results on target cell population are indicated in the following table: RESULTS: ANTIBODY / CLONE RESULT Block A P40 (BC28) negative 34BE12 (34BE12) negative Block B P40 (BC28) negative 34BE12 (34BE12) negative Block C P40 (BC28) positive 34BE12 (34BE12) positive Block E P40 (BC28) negative 34BE12 (34BE12) negative These tests were developed and their performance characteristics determined by [facility]. They may not have been cleared or approved by the U.S. Food and Drug Administration. The FDA has determined that such clearance or approval is not necessary. The above immunohistochemical/dualISH markers are ordered and reviewed by the Pathologist. INTERPRETATION: A. Right prostate, apex, core biopsy: Adenocarcinoma. B. Right prostate, mid, core biopsy: Adenocarcinoma. C. Right prostate, base, core biopsy: Focal high-grade prostatic intraepithelial neoplasia (HGPIN). E. Left prostate, mid, core biopsy: Two minute foci of adenocarcinoma. SJ:brandon 05/25/2022
== END | disposition home or self-care (01) ==
PROVIDERS: PCP Internal Medicine; Visit Provider Urology
DX: C61 Malignant neoplasm of prostate (principal)
CPT/HCPCS: 88305; 88341; 88342; G0416

== ENCOUNTER → 2022-09-11 | Outpatient (CLI) | payer MEDICARE, OTHER, SELFPAY ==
[2022-09-11 10:59] LABS: PSA,Total- Diagnostic 8.33 ng/mL (0.0-4.0)
== END | disposition home or self-care (01) ==
LOC: LAB 09:31
PROVIDERS: PCP Internal Medicine; Referring Provider Urology; Visit Provider Urology
DX: C61 Malignant neoplasm of prostate (principal)
CPT/HCPCS: 36415; 84153

== ENCOUNTER 2023-02-19 09:02 | Outpatient (RCR) | payer MEDICARE, OTHER, SELFPAY ==
[2023-02-19 11:15] LABS: PSA,Total- Diagnostic 8.86 ng/mL (0.0-4.0)
== END 2023-02-19 10:00 | disposition home or self-care (01) ==
LOC: LAB 09:02
PROVIDERS: PCP Internal Medicine; Referring Provider Urology; Visit Provider Urology
DX: C61 Malignant neoplasm of prostate (principal)
CPT/HCPCS: 36415; 84153

== ENCOUNTER → 2023-07-10 | Outpatient (CLI) | payer MEDICARE, OTHER, SELFPAY ==
--- NOTE | 2023-07-10 10:40 | NEURO ---
NCS and/or EMG Patient Report Ordering Doctor: Darin Shi DATE OF SERVICE: 07/10/23 Clinical Summary: 68 year old male presenting with complaints of right upper extremity numbness/tingling. This EMG/NCS was performed to evaluate for right cervical radiculopathy and carpal tunnel syndrome. Nerve Conduction Studies Summary: The right median-D2 SNAP distal latency was prolonged with reduced amplitude. The right ulnar-D5 SNAP distal latency was prolonged. The right median-APB CMAP distal latency was prolonged. The right median motor conduction velocity was reduced in the forearm segment. Needle Examination Summary: There was a higher proportion of motor unit action potentials with reduced recruitment, increased amplitude, increased duration, and polyphasia in the right triceps, right flexor carpi radialis, and right abductor pollicis brevis muscles. Impression: There is electrodiagnostic evidence of the following - 1) Severe, right median mononeuropathy at the wrist (carpal tunnel syndrome), with secondary motor fiber axonal loss 2) Chronic, right C7 radiculopathy Multi Select Codes Neurology Neurology Interp Codes: 17956-14 Musc test done w/n test comp (interp) (1) and 31142-94 Nrv cndj tst 5-6 studies (interp)
== END | disposition home or self-care (01) ==
LOC: PSN 09:54
PROVIDERS: PCP Internal Medicine; Referring Provider Student in an Organized Health Care Education/Training Program; Visit Provider Student in an Organized Health Care Education/Training Program
DX: G56.01 Carpal tunnel syndrome, right upper limb (principal)
CPT/HCPCS: 95886; 95909

== ENCOUNTER → 2023-08-22 | Outpatient (CLI) | payer MEDICARE, OTHER, SELFPAY | END | disposition home or self-care (01) | LOC: LAB 10:46 | PROVIDERS: PCP Internal Medicine; Referring Provider Urology; Visit Provider Urology | DX: C61 Malignant neoplasm of prostate (principal) | CPT/HCPCS: 36415; 84153 ==

== ENCOUNTER → 2023-09-05 | Outpatient (CLI) | payer MEDICARE, OTHER, SELFPAY | END | disposition home or self-care (01) | LOC: LAB 09:58 | PROVIDERS: PCP Internal Medicine; Referring Provider Urology; Visit Provider Urology | DX: R97.20 Elevated prostate specific antigen [PSA] (principal) | CPT/HCPCS: 36415; 84153 ==

== ENCOUNTER → 2023-09-18 | Outpatient (CLI) | payer MEDICARE, OTHER, SELFPAY ==
--- NOTE | 2023-09-18 08:02 | MRI_ITS ---
EXAMINATION: MR Pelvis WO/W Contrast COMPARISON: None CLINICAL HISTORY: 68 yo M with history of prostate cancer Most recent PSA = 16 ng/ml TECHNIQUE: Standard prostate MR protocol was used before and after administration of 15 cc of IV Clariscan. FINDINGS: Prostate volume: 91 cc PSA density: 0.18 ng/ml2 Length of membranous urethra: 21 mm Post-biopsy hemorrhage: None Multiparametric MR evaluation: Heterogeneous appearance of the central gland is consistent with benign prostatic hyperplasia. Heterogeneous T2 hypointensity of the peripheral gland and seminal vesicles. Lesion 1: LOCATION - there is a 1.1 x 0.7 x 0.7 cm focal T2 hypointense lesion in the left posterolateral peripheral zone between base and mid gland. It is moderately bright on DWI and moderately dark on ADC map. T2 - 3 DWI - 4 DCE - inconclusive Overall PI-RADS v2 score = 4 Lesion 2: LOCATION -1.1 x 0.7 x 0.9 cm ill-defined mildly T2 hypointense lesion in the right anterior transitional zone at mid gland. It is mildly bright on DWI and and moderately dark on ADC map. T2 - 3 DWI - 3 DCE - inconclusive Overall PI-RADS v2 score = 3 Capsular margin and neurovascular bundle: Not involved Seminal vesicles: Not involved. Lymph nodes: No lymphaenopathy in the field of view. Bones: No suspicious lesions in the field of view. MRI/Pelvis W/WO Contrast IMPRESSION: 1.1 cm PI-RADS 4 lesion in the left posterolateral PZ between mid gland and base. 1.1 cm PI-RADS 3 lesion in the right anterior TZ at mid gland. - No evidence of macroscopic extracapsular extension. - No evidence of seminal vesicle invasion. - No lymphadenopathy. - No suspicious bone lesions. Benign prostatic hyperplasia, prostatitis and seminal vesiculitis. Electronically Signed: Larry Balderas MD at 13:02 EST ,
[2023-09-18 08:34] LABS: CREATININE FINGERSTICK < 1.0 mg/dL (0.70-1.30); EGFR FINGERSTICK > 60.0000 mL/min (>60)
== END | disposition home or self-care (01) ==
PROVIDERS: PCP Internal Medicine; Referring Provider Urology; Visit Provider Urology
DX: C61 Malignant neoplasm of prostate (principal)
CPT/HCPCS: 72197; A9575

== ENCOUNTER → 2023-10-18 | Outpatient (CLI) | payer MEDICARE, OTHER, SELFPAY ==
--- NOTE | 2023-10-18 | IMM_PTH ---
PATHOLOGY RESULTS PATIENT: SHADY LOVE LOC: [facility] U#:[id number] AGE/SX: 68/M ROOM: RE10/18/[address]: Dr. Joe Carnes MD : 1955 BED: DIS: 10/18/2023 SPEC #: [id number] RECD: 10/22/23 12:50 STATUS: SOUPlacido REQ #: [id number] GRADY: 10/18/23 00:[address]: Joe Carnes DEPT: IMMUNOHISTOCHEMISTRY RECD BY: Cathy Singleton ENTERED: 10/22/23 12:51 SP TYPE: IMMUNO OTHR DR: Dr. Juanjose Lainez MD Tissues: PROSTATE RIGHT PROSTATE RIGHT PROSTATE RIGHT PROSTATE LEFT PROSTATE LEFT Procedures: 34BE12 (add) P40 (add) 34BE12 (initial) PHYSICIAN & INSTITUTION [place] [id number] SPECIMEN INFORMATION: Tissue Source: A - Right apex, B - Right mid, C - Right base, D - Left apex, F - Left base Clinical Info: Elevated PSA Specimen Number: [id number] A-D & F CPT code: 72039, 25963 x9 METHODOLOGY: Deparaffinized sections of prefer/formalin-fixed tissue or PAP/DQ stained slides are incubated with monoclonal/polyclonal antibodies/oligonucleotide probes. Localization is made via biotin free immunoperoxidase method. Appropriate controls are performed and reacted as expected. Results on target cell population are indicated in the following table: RESULTS: ANTIBODY / CLONE RESULT Block A P40 (BC28) negative 34BE12 (34BE12) negative Block B P40 (BC28) negative 34BE12 (34BE12) negative Block C P40 (BC28) negative 34BE12 (34BE12) negative Block D P40 (BC28) negative 34BE12 (34BE12) negative Block F P40 (BC28) negative 34BE12 (34BE12) negative These tests were developed and their performance characteristics determined by [facility]. They may not have been cleared or approved by the U.S. Food and Drug Administration. The FDA has determined that such clearance or approval is not necessary. The above immunohistochemical/dualISH markers are ordered and reviewed by the Pathologist. INTERPRETATION: A. Right prostate, apex, core biopsy: Adenocarcinoma. See comment. B. Right prostate, mid, core biopsy: Adenocarcinoma. C. Right prostate, base, core biopsy: Adenocarcinoma. D. Left prostate, apex, core biopsy: Adenocarcinoma. F. Left prostate, base, core biopsy: Adenocarcinoma. SJ:brandon 10/23/2023 Comment: A - Focal atypical small acinar proliferation is noted in the second core.
--- NOTE | 2023-10-18 08:00 | PROSBIL_PTH ---
PATHOLOGY RESULTS PATIENT: SHADY LOVE LOC: [facility] U#:[id number] AGE/SX: 68/M ROOM: RE10/18/[address]: Dr. Joe Carnes MD : 1955 BED: DIS: 10/18/2023 SPEC #: [id number] RECD: 10/18/23 16:19 STATUS: ZAY REJanes #: [id number] GRADY: 10/18/23 08:[address]: Joe Carnes DEPT: SURGICAL PATHOLOGY RECD BY: Varsha Coughlin ENTERED: 10/19/23 10:04 SP TYPE: PROST BX ERICKSON DR: Dr. Juanjose Lainez MD Tissues: PROSTATE RIGHT PROSTATE RIGHT PROSTATE RIGHT PROSTATE LEFT PROSTATE LEFT PROSTATE LEFT Procedures: PROSTATE BX HEADER OPERATION: Prostate biopsy PRE-OP DIAGNOSIS: Elevated PSA TISSUE SUBMITTED: A - Right apex, B - Right mid, C - Right base, D - Left apex, E - Left mid, F - Left base MICROSCOPIC DIAGNOSIS A. Right prostate, apex, core biopsy: Prostatic adenocarcinoma. [place] grade: 3+3=6 Number of cores involved: 1/2 Proportion of tissue involved: <5% Perineural invasion: present, focal. Greatest tumor length: 0.1 cm Focal high-grade prostatic intraepithelial neoplasia (HGPIN). See comment. B. Right prostate, mid, core biopsy: Prostatic adenocarcinoma. [place] grade: 3+3=6 Number of cores involved: 2/2 Proportion of tissue involved: ~5-10% Perineural invasion: Not identified. Greatest tumor length: 0.2 cm Focal high-grade prostatic intraepithelial neoplasia (HGPIN). See comment. C. Right prostate, base, core biopsy: Prostatic adenocarcinoma. [place] grade: 3+3=6 Number of cores involved: 1/2 Proportion of tissue involved: <5% Perineural invasion: Not identified. Greatest tumor length: 0.2 cm Focal high-grade prostatic intraepithelial neoplasia (HGPIN). See comment. D. Left prostate, apex, core biopsy: Prostatic adenocarcinoma. [place] grade: 3+3=6 Number of cores involved: 1/2 Proportion of tissue involved: <5% Perineural invasion: Not identified. Greatest tumor length: 0.2 cm See comment. E. Left prostate, mid, core biopsy: Prostatic tissue, negative for malignancy. F. Left prostate, base, core biopsy: Prostatic adenocarcinoma. [place] grade: 3+3=6 Number of cores involved: 1/2 Proportion of tissue involved: <5% Perineural invasion: Not identified. Greatest tumor length: < 0.1 cm See comment. SJ:brandon 10/22/2023 COMMENT A. Immunohistochemistry ([id number]) supports the above diagnosis. Focal atypical small acinar proliferation is also noted in the second core. B-D & F - Immunohistochemistry ([id number]) supports the above diagnosis. Case has been reviewed in consultation with Dr. An who concurs with the above diagnosis. IDC:AM MICROSCOPIC DESCRIPTION Slides are reviewed. GROSS DESCRIPTION A - Received is one container designated prostate, right apex. The specimen consists of two elongated fragments of light valladares-white soft tissue each measuring 1.5 cm in length and 0.1 cm in diameter. The specimen is totally submitted in one cassette. B - Received is one container designated prostate, right mid. The specimen consists of two elongated fragments of light valladares-white soft tissue each measuring 1.7 cm in length and 0.1 cm in diameter. The specimen is totally submitted in one cassette. C - Received is one container designated prostate, right base. The specimen consists of two elongated fragments of light valladares-white soft tissue measuring 1.5 and 1.9 cm in length and 0.1 cm in diameter. The specimen is totally submitted in one cassette. D - Received is one container designated prostate, left apex. The specimen consists of three elongated fragments of light valladares-white soft tissue measuring 0.4 to 0.5 cm in length and 0.1 cm in diameter. The specimen is totally submitted in one cassette. E - Received is one container designated prostate, left mid. The specimen consists of three elongated fragments of light valladares-white soft tissue measuring 0.5 to 1.4 cm in length and 0.1 cm in diameter. The specimen is totally submitted in one cassette. F - Received is one container designated prostate, left base. The specimen consists of three elongated fragments of light valladares-white soft tissue measuring 0.5 to 1.1 cm in length and 0.1 cm in diameter. The specimen is totally submitted in one cassette. / SJ:brandon 10/19/2023 TC:0 CPT: G0146
--- OUTSIDE RECORDS SUMMARY | 2023-10-18 16:38 | XMS RPT_ITS | CCD ---
Author Name Unknown Address [address] [place] [address] Organization [facility] Care Team Providers Care Pipe Fitter Supervisor Name Role Phone Kelechi SIMPSON, Juanjose Lucio Primary Care Provider JUANJOSE LORENZ Primary Care Unavailable ROBERT SANDOVAL Referring Unavailab gonzalez LORIROBERT HICKS Attending Unavailab le KELECHI, JUANJOSE Lucio Referring Unavailable KELECHI, JUANJOSE Lucio Primary Care Unavailable KELECHI, JUANJOSE Lucio Attending Unavailable KELECHI, JUANJOSE Lucio Primary Care Unavailable KELECHI, JUANJOSE Lucio Primary Care Unavailable GABRIELA JAMES Referring Unavailable KELECHI, JUANJOSE Lucio Primary Care Unavailable ROBERT SANDOVAL Referring Unavailab le KELECHI, JUANJOSE Lucio Primary Care Unavailable KELECHI, JUANJOSE Lucio Referring Unavailable GABRIELA JAMES Attending Unavailable KELECHI, JUANJOSE Lucio Primary Care Unavailable JUANJOSE LORENZ Attending Unavailable Medications Completed/Discontinued Medications Medication Drug Class(es) Dates Sig (Normalized) Sig (Original) aspirin 325 mg delayed release oral tablet (8 sources) Platelet Aggregation Inhibitor, Nonsteroidal Anti-inflammatory Drug Start: 09-05-2007 End: 08-08-2023 ASPIRIN 325 MG TAB, DELAYED RELEASE Take by mouth as needed. DO NOT crush. 0 09/05/2007 08/08/2023 Discontinued Problems Active Problems Problem Classification Problem Date Documented Date Episodic/Chronic Aortic; peripheral; and visceral artery aneurysms (15 sources) Abdominal aortic aneurysm without rupture; Translations: [Abdominal aortic aneurysm (AAA) without rupture, unspecified part] Onset: 08-04-2021 Chronic Cancer of prostate (13 sources) Malignant tumor of prostate; Translations: [Malignant neoplasm of prostate] Onset: 08-04-2022 Chronic Chronic obstructive pulmonary disease and bronchiectasis (13 sources) Simple chronic bronchitis; Translations: [Simple chronic bronchitis] Onset: 12-14-2014 Chronic Coagulation and hemorrhagic disorders (7 sources) Platelet count below reference range; Translations: [Thrombocytopenia, unspecified] Onset: 02-05-2023 Chronic Esophageal disorders (11 sources) Gastroesophageal reflux disease; Translations: [Gastro-esophageal reflux disease without esophagitis] Onset: 09-05-2007 09-05-2007 Chronic Essential hypertension (16 sources) Essential hypertension; Translations: [Essential (primary) hypertension] Onset: 01-01-2018 Chronic Other lower respiratory disease (1 source) Wheezing; Translations: [Wheezing] Episodic Other screening for suspected conditions (not mental disorders or infectious disease) (8 sources) Raised prostate specific antigen; Translations: [Elevated prostate specific antigen [PSA]] Onset: 02-07-2020 02-07-2020 Episodic Substance-related disorders (18 sources) Tobacco user; Translations: [Nicotine dependence, unspecified, uncomplicated] Onset: 09-05-2007 Chronic Unclassified (1 source) Abdominal aortic aneurysm (AAA) without rupture, unspecified part (HCC); Translations: [Abdominal aortic aneurysm (AAA) without rupture, unspecified part (HCC)] Onset: 08-04-2021 Viral infection (1 source) Disease caused by 2019-nCoV; Translations: [COVID-19] Episodic Past or Other Problems Problem Classification Problem Date Documented Da te Episodic/Chronic Other non-traumatic joint disorders (11 sources) Pain in wrist; Translations: [Pain in unspecified wrist] Onset: 10-18-2012 10-18-2012 Episodic Results Test Name Value Interpretation Reference Range Facil ity Vital Signs Date Time Vital Sign Value Performing Clinician Luis Daniel an 08-14-2023 11:13-0500 Body weight 76.66 kg Gabriela James APRN.HEATH Work Phone: [facility] 08-08-2023 11:47-0500 Diastolic blood pressure 82 mm[Hg] Juanjose Lorenz MD Work Phone: [facility] 08-08-2023 11:47-0500 Systolic blood pressure 122 mm[Hg] Juanjose Lorenz MD Work Phone: [facility] 08-08-2023 11:11-0500 Body height 181.9 cm Juanjose Lorenz MD Work Phone: [facility] 08-08-2023 11:11-0500 Body temperature 97.9 [degF] Juanjose Lorenz MD Work Phone: [facility] 08-08-2023 11:[id number] Body weight 76.66 kg Juanjose Lorenz MD Work Phone: [facility] 08-08-2023 11:11-0500 Heart rate 64 /min Juanjose Lorenz MD Work Phone: [facility] 03-20-2023 09:54-0400 Body height 180.3 cm Robert Sandoval DO Work Phone: [facility] 03-20-2023 09:54-0400 Body weight 77.11 kg Robert Sandoval DO Work Phone: [facility] 03-20-2023 09:54-0400 Diastolic blood pressure 84 mm[Hg] Robert Sandoval DO Work Phone: [facility] 03-20-2023 09:54-0400 Heart rate 68 /min Robert Sandoval DO Work Phone: [facility] 03-20-2023 09:54-0400 SaO2% (BldA) [Mass fraction] 98 % Robert Sandoval DO Work Phone: [facility] 03-20-2023 09:54-0400 Systolic blood pressure 120 mm[Hg] Robert Sandoval DO Work Phone: [facility] 02-05-2023 13:38-0400 Body weight 80.29 kg Juanjose Lorenz MD Work Phone: [facility] 02-05-2023 13:38-0400 Diastolic blood pressure 66 mm[Hg] Juanjose Lorenz MD Work Phone: [facility] 02-05-2023 13:38-0400 Heart rate 72 /min Juanjose Lorenz MD Work Phone: [facility] 02-05-2023 13:38-0400 Respiratory rate 16 /min Juanjose Lorenz MD Work Phone: [facility] 02-05-2023 13:38-0400 Systolic blood pressure 120 mm[Hg] Juanjose Lorenz MD Work Phone: [facility] 09-05-2022 11:31-0500 Body temperature 97.3 [degF] Juanjose Lorenz MD Work Phone: [facility] 09-05-2022 11:31-0500 Body weight 77.11 kg Juanjose Lorenz MD Work Phone: [facility] 09-05-2022 11:31-0500 Diastolic blood pressure 80 mm[Hg] Juanjose Lorenz MD Work Phone: [facility] 09-05-2022 11:31-0500 Heart rate 76 /min Juanjose Lorenz MD Work Phone: [facility] 09-05-2022 11:31-0500 SaO2% (BldA) [Mass fraction] 96 % Juanjose Lorenz MD Work Phone: [facility] 09-05-2022 11:31-0500 Systolic blood pressure 124 mm[Hg] Juanjose Lorenz MD Work Phone: [facility] Encounters Encounter Date Encounter Type Care Provider Facility Start: 09-09-2023 Orders Only Gabriela Fordjosh er SUPERVISOR STRIPPING.HUMAN RESOURCES SERVICES SPECIALIST Work Phone: [facility] Pulmonary Procedures Date Procedure Procedure Detail Performing Clinician Start: 03-20-2023 Ecg routine ecg w/le ast 12 lds i&r only [facility] Provider Start: 03-12-2023 Lipid 1996 panel - S perry or Plasma Juanjose Lorenz MD Work Phone: Start: 12-20-2018 Colonoscopy Juanjose Cano MD Work Phone: Plan of Treatment Date Care Activity Detail Author Start: 03-12-2028 Lipid 1996 panel - Serum or Plasma Lipid Screening [facility] Start: 03-12-2028 LIPID SCREEN LIPID SCREEN [facility] Start: 02-20-2028 PROSTATE CANCER SCREENING DISCUSSION PROSTATE CANCER SCREENING DISCUSSION [facility] Start: 02-01-2027 LIPID SCREEN LIPID SCREEN [facility] Start: 02-01-2027 PROSTATE CANCER SCREENING DISCUSSION PROSTATE CANCER SCREENING DISCUSSION [facility] Start: 03-12-2026 DIABETES SCREEN DIABETES SCREEN [facility] Start: 03-12-2026 Diabetes Screening Diabetes Screening [facility] Start: 02-01-2025 DIABETES SCREEN DIABETES SCREEN [facility] Start: 09-06-2024 Influenza vaccination Lung Cancer Screening [facility] Start: 08-14-2024 BP Controlled (<130/80) BP Controlled (<130/80) [facility] Start: 08-08-2024 Annual PCP Team Chronic Disease Visit Annual PCP Team Chronic Disease Visit [facility] Start: 02-06-2024 ANNUAL PCP TEAM CHRONIC DISEASE VISIT ANNUAL PCP TEAM CHRONIC DISEASE VISIT [facility] Start: 02-06-2024 BP CONTROLLED (<130/80) BP CONTROLLED (<130/80) [facility] Start: 02-06-2024 End: 05-07-2024 CBC panel - Blood by Automated count CBC Lab Routine Essential hypertension Expected: 02/06/2024, Expires: 05/07/2024 [facility] Work Phone: Immunizations Immunization Date Immunization Notes Care Provider Fa cility 08-02-2023 influenza (aIIV4) vaccine, age 65+ yr, quadrivalent, PF (FLUAD QUAD) Juanjose Lorenz MD Work Phone: [facility] Work Phone: 02-01-2021 pneumococcal polysaccharide vaccine, 23 valent Juanjose Lorenz MD Work Phone: [facility] Work Phone: 12-29-2020 COVID-19 original vaccine, full dose, monovalent (MODERNA) Juanjose Lorenz MD Work Phone: [facility] Work Phone: 12-01-2020 COVID-19 original vaccine, full dose, monovalent (MODERNA) Juanjose Lorenz MD Work Phone: [facility] Work Phone: 12-14-2014 pneumococcal conjuga te vaccine, 13 valent Juanjose Lorenz MD Work Phone: [facility] 02-19-2013 tetanus toxoid, redu eris diphtheria toxoid, and acellular pertussis vaccine, adsorbed Juanjose Lorenz MD Work Phone: [facility] 09-10-2012 influenza virus vacc ine, unspecified formulation Juanjose Lorenz MD Work Phone: [facility] Work Phone: Payers Date Payer Category Payer Medicare MEDICARE MEDICAR E A AND B [id number] 2020-Present [phone] [address] [address] [place] [address] Medicare [id number] 2020 Medicare [id number] 2020 Medicare [id number] 2020 Unknown MMO MMO MEDICARE SUPPLEMENT [id number] 2020-Present [phone] [address] [place] [address] Indemnity [id number] Social History Date Type Detail Facility Start: 02-01-2021 End: 08-14-2023 Tobacco smoking status TXIS Smokes tobacco daily [facility] Work Phone: History of tobacco use Cigarette Smoker [facility] Work Phone: History of tobacco use Cigar Smoker [facility] Work Phone: Start: 02-01-2021 End: 02-05-2023 Cigarettes smoked current (pack per day) - Reported 0.5 [facility] Start: 02-01-2021 End: 08-14-2023 Tobacco use and exposure Smokeless tobacco non-user [facility] Work Phone: Start: 08-04-2022 End: 08-14-2023 Alcohol intake Current drinker of alcohol (finding) [facility] Start: 08-04-2022 End: 02-05-2023 History SDOH Alcohol Frequency 5 [facility] Start: 08-03-2021 End: 08-04-2022 History SDOH Alcohol Std Drinks 1 [facility] Start: 08-03-2021 End: 08-04-2022 History SDOH Social Connections Get Together 2 [facility] Start: 08-03-2021 End: 08-04-2022 History SDOH Social Connections Meetings 3 [facility] Start: 08-03-2021 History SDOH Physica l Activity DPW 4 [facility] Start: 1955 Sex Assigned At Male C [facility] Start: 07-25-2022 End: 08-04-2022 Exposure to SARS-CoV-2 (event) Not sure [facility] Start: 02-05-2023 Alcohol Comment 2 beers daily or less often [facility] Start: 08-04-2022 End: 02-05-2023 Social connection and isolation panel [facility] Active Member of [facility] bs or Organizations Not on file [facility] Work Phone: Are you now , , , , never or living with a partner? [facility] How often to you hav e a drink containing alcohol? 4 or more times a week [facility] Work Phone: How many standard dr inks containing alcohol do you have on a typical day? 1 or 2 [facility] Work Phone: How often do you hav e 6 or more drinks on 1 occasion? Never [facility] Work Phone: Do you feel stress - tense, restless, nervous, or anxious, or unable to sleep at night because your mind is troubled all the time - these days [OSQ] Only a little [facility] In the past 12 month s, was there a time when you were not able to pay the mortgage or rent on time? No [facility] Start: 04-18-2020 Gender identity Identifies as male gender (finding) [facility] Clinical Notes 08-04-2021 to 09-06-2023 Cathie Patterson RT(Crystal) - 09/06/2023 10:40 AM ESTPatient Gabriela Bermudez APRN.HUMAN RESOURCES SERVICES SPECIALIST - 08/14/2023 11:29 AM ESTPatient Juanjose Rainey MD - 08/08/2023 11:31 AM EST Note Date & Type Note Facility 09-06-2023 Note HNO ID: [id number] Author: Cathie Patterson RT(Crystal) Service: ? Author Type: Print Journalist Type: Progress Notes Filed: 09/06/2023 3:39 PM Note Text: Radiology Service Progress Note PATIENT NAME: Shady Ojeda DATE OF SERVICE: September 06, 2023 TIME: 3:39 PM PATIENT IDENTITY VERIFICATION COMPLETED USING TWO (2) IDENTIFIERS: Name and Date of confirmed by patient verbally. FALL SCREENING: Has the patient had 2 falls in the last year or 1 fall with injury or currently using an Ambulatory Assistive Device (Walker, Cane, Wheelchair, Crutches, etc.)? No PATIENT GENDER DATA: Male PATIENT RELEVANT IMPLANT DATA REVIEWED: Yes RADIOLOGY DEPARTMENT: CT; Exam(s) Completed: Chest PERIPHERAL IV DATA: Not applicable SIGNED BY: RT Doug(R) September 06, 2023 3:39 PM [facility] 09-06-2023 History of Presen t illness Narrative Radiology Service Progress Note PATIENT NAME: Shady Ojeda DATE OF SERVICE: September 06, 2023 TIME: 3:39 PM PATIENT IDENTITY VERIFICATION COMPLETED USING TWO (2) IDENTIFIERS: Name and Date of confirmed by patient verbally. FALL SCREENING: Has the patient had 2 falls in the last year or 1 fall with injury or currently using an Ambulatory Assistive Device (Walker, Cane, Wheelchair, Crutches, etc.)? No PATIENT GENDER DATA: Male PATIENT RELEVANT IMPLANT DATA REVIEWED: Yes RADIOLOGY DEPARTMENT: CT; Exam(s) Completed: Chest PERIPHERAL IV DATA: Not applicable SIGNED BY: RT Doug(R) September 06, 2023 3:39 PM documented in this encounter [facility] 08-14-2023 Gabriela Clark APRN.CNP - 08/14/2023 4:[address] Lung Screen Results The CT scan that you will have done will show if you have any nodules (small spots) in your lungs that are suspicious for cancer. Around 90% of the patients who have this scan done are found to have at least one nodule. Most nodules are benign (not cancer) and of no harm to you at all. A specialist will make a scientific evaluation about whether or not a nodule is worrisome based on its size and shape. The radiologist who will read your scan will put it into one of four categories: LUNG-RADS Category Description Overall Probability of Malignancy Recommended Follow-Up 1 Negative No nodules and definitely benign (non-cancerous nodules) Essentially 0. 1 Year - Follow-up Low dose CT 2 Benign Appearance or Behavior Nodules with a very low likelihood of becoming cancer due to size or lack of growth Less than 1% 1 Year - Follow-up Low dose CT 3 Probably Benign Probably benign finding, short term follow-up recommended 1 to 2% 6 Months - Follow-up Low dose CT 4 Suspicious Findings for which additional diagnostic testing and/or biopsy is recommended Will be calculated based on nodule characteristics. Dependent on what is seen on the exam. (3 month follow-up CT, PET-CT, or biopsy) At times, we may see something outside of the lungs on the scan that could be a health concern. Below are some of the most common findings: S Clinically Significant or Potentially Clinically Significant Findings (non lung cancer) Referral or additional imaging/labs depending on result. Approximately 10% of people receive this result. Coronary Artery Calcifications (Moderate or Severe) - Referral to cardiology for further work-up and recommendations. Thyroid Nodule - TSH level and Thyroid Ultrasound dependent on size, referral to endocrinology. Adrenal Nodule - blood work and referral to endocrinology. Others Lung Cancer Screening hotline: [phone] Lung Cancer Screening [phone] Billing Questions: or [email or web address] Specialist Providers: (Maeve Felton CNP; Soniya Ann PA-C; Claudia Anderson CNP; Cyndy Jones CNP, Flora Martinez CNP; Cathie Lopez CNP; Nayeli Miramontes PA-C; Gabriela James CNP; Karmen Bautista CNP; Mireya Harding PA-C; Ca Gunn CNP; Debra Vick CNP; Hilary Mena CNP): [phone] documented in this encounter [facility] 08-14-2023 Note HNO ID: [id number] Author: Gabriela James APRN.CNP Service: ? Author Type: Nurse Practitioner Type: Progress Notes Filed: 08/14/2023 4:06 PM Note Text: LUNG SCREENING VISIT PRIMARY CARE PHYSICIAN: Juanjose Lorenz MD PULMONARY PROVIDER: none Results will be communicated via letter or electronic record if applicable. Visit Delivery: In Person Patient Visit Type: New to Screening Current or Ex-smoker? [Current Exam Type: baseline LDCT Number of Pack Years: 54 Current smoker (=0) REQUESTER: The referring provider advised the patient to have screening. HISTORY OF PRESENT ILLNESS: Shady Ojeda is a 68 year old Active smoker who presents for lung screening. Currently 15-20 cigs/day. tested + TB as a child. Cough since a child. Had x rays. Respiratory symptoms include: SOB: No Chest tightness: No Coughing: Yes: Without mucus Hemoptysis: No Wheezing: No Fever/Chills: No Recent Respiratory Infection: No Unintentional weight loss: No Last 6 Encounter Wt Readings: Date: Wt: 08/14/2023 76.7 kg (169 lb) 08/08/2023 76.7 kg (169 lb) 03/20/2023 77.1 kg (170 lb) 02/05/2023 80.3 kg (177 lb) 09/05/2022 77.1 kg (170 lb) 03/20/2022 78 kg (172 lb) ECOG PERFORMANCE STATUS: 0- Fully active, able to carry on all pre-disease performance w/o restriction. Modified Medical Research [place] Dyspnea Scale (MMRC) I only get breathless with strenous exercise 0 PAST MEDICAL HISTORY Diagnosis Date Cholelithiasis with obstruction 01/10/2013 Esophageal reflux Essential hypertension 01/01/2018 Essential hypertension, benign HYPERTENSION NOS 09/05/2007 Kidney stones 1999 Other and unspecified hyperlipidemia Prostate cancer (HCC) 08/04/2022 PROSTATIC DISORDER NOS 09/05/2007 PSA elevation 02/07/2020 Simple chronic bronchitis (HCC) 12/14/2014 Tobacco use disorder 09/05/2007 Umbilical hernia 12/14/2014 Ureterolithiasis 08/04/2021 PAST SURGICAL HISTORY Procedure Laterality Date APPENDECTOMY 2002 COLONOSCOPY FLX DX W/COLLJ SPEC WHEN PFRMD 08/20/2008 Colonoscopy COLONOSCOPY FLX DX W/COLLJ SPEC WHEN PFRMD 12/20/2018 Colonoscopy ESOPHAGOGASTRODUODENOSCOPY TRANSORAL DIAGNOSTIC 12/20/2018 EGD EXTRACTION ERUPTED TOOTH [place] teeth LAPAROSCOPY SURG CHOLECYSTECTOMY 01/28/2013 Cholecystectomy, lap, Robotic assisted PROSTATE BIOPSY 05/22/2022 SIGMOIDOSCOPY FLX DX W/COLLJ SPEC BR/WA IF PFRMD 09/11/2000 Sigmoidoscopy, flexible TONSILLECTOMY AND ADENOIDECTOMY T/A (under age 12 years) FAMILY HISTORY Problem Relation Age of Onset Hypertension Mother Asthma Mother Alzheimer's Disease Mother Heart Father Stroke Father post Hip Fracture surgery other (macular degeneration) Father No Known Problems Sister No Known Problems Brother lisinopril (ZESTRIL) 10 mg tablet Take 1 tablet by mouth once daily. MULTIVITAMIN TAB Take one(1) tablet daily. ALLERGIES No Known Allergies The medications and allergies were reviewed and reconciled for this patient and deemed current. Lung Cancer Risk Factors: 1.Tobacco Use: Start Age 15, Quit Age: N/A, Average packs per day 1, Pack Years 54 2. Passive Smoke Exposure: Yes, as a Child and as an Adult 3. Personal hx of malignancy: No, Type of Cancer: Low grade prostate cancer 4. Significant exposures (1 year or more of exposure): Dusts, 5. Race: White 6. Education: High School Graduate 7. BMI:Body mass index is 23.18 kg/m?. Patient-entered Height: 6'0 Patient-entered Weight: 170 pounds 8. COPD: Yes 9. Pneumonia in the past 5 years: No 10. Is there a history of lung cancer in a first degree relative? No 11. Is there a history of lung cancer in a non-first degree relative? No 12. Is there a history of any other cancer in a first degree relative? No Health Maintenance Immunization History Administered Date(s) Administered COVID-19 original vaccine, full dose, monovalent (MODERNA) 12/01/2020 12/29/2020 09/01/2021 influenza (aIIV4) vaccine, age 65+ yr, quadrivalent, PF (FLUAD QUAD) 08/02/2023 influenza vaccine, unspecified formulation 09/10/2012 pneumococcal (PCV13) vaccine, 13 valent (PREVNAR 13) 12/14/2014 pneumococcal (PPV23) vaccine, 23 valent (PNEUMOVAX 23) 02/01/2021 tetanus diphtheria pertussis (Tdap) vaccine, age 7+ yr (ADACEL, BOOSTRIX) 02/19/2013 Colonoscopy: 12/20/2018 Mammogram: DATA REVIEW I have directly visualized the testing documented: Prior Imaging: Last CT/CTA Chest/Lungs No resulted procedures found. Last CT Chest - Impression Only No resulted procedures found. Last XR Chest - Impression Only XR CHEST 2V FRONTAL/LAT Exam End: 09/05/2022 12:39 PM (Final result) Impression: IMPRESSION: Overall findings unchanged. ... Pulmonary Function Testing: SPIROMETRY - BASELINE AND POST DILATOR ([id number]) - ordered on 02/04/21 No textual results for order. PHYSICAL EXAM: ,BP (P) 122/72 Pulse (P) 70 Resp (P) 16 Wt 76.7 kg (169 lb) SpO2 (P) 98% BMI (more content not included)... [facility] 08-14-2023 History of Presen t illness Narrative Images from the original note were not included. LUNG SCREENING VISIT PRIMARY CARE PHYSICIAN: Juanjose Lorenz MD PULMONARY PROVIDER: none Results will be communicated via letter or electronic record if applicable. Visit Delivery: In Person Patient Visit Type: New to Screening Current or Ex-smoker? [Current Exam Type: baseline LDCT Number of Pack Years: 54 Current smoker (=0) REQUESTER: The referring provider advised the patient to have screening. HISTORY OF PRESENT ILLNESS: Shady Ojeda is a 68 year old Active smoker who presents for lung screening. Currently 15-20 cigs/day. tested + TB as a child. Cough since a child. Had x rays. Respiratory symptoms include: SOB: No Chest tightness: No Coughing: Yes: Without mucus Hemoptysis: No Wheezing: No Fever/Chills: No Recent Respiratory Infection: No Unintentional weight loss: No Last 6 Encounter Wt Readings: Date: Wt: 08/14/2023 76.7 kg (169 lb) 08/08/2023 76.7 kg (169 lb) 03/20/2023 77.1 kg (170 lb) 02/05/2023 80.3 kg (177 lb) 09/05/2022 77.1 kg (170 lb) 03/20/2022 78 kg (172 lb) ECOG PERFORMANCE STATUS: 0- Fully active, able to carry on all pre-disease performance w/o restriction. Modified Medical Research [place] Dyspnea Scale (MMRC) I only get breathless with strenous exercise 0 PAST MEDICAL HISTORY Diagnosis Date Cholelithiasis with obstruction 01/10/2013 Esophageal reflux Essential hypertension 01/01/2018 Essential hypertension, benign HYPERTENSION NOS 09/05/2007 Kidney stones 1998 Other and unspecified hyperlipidemia Prostate cancer (HCC) 08/04/2022 PROSTATIC DISORDER NOS 09/05/2007 PSA elevation 02/07/2020 Simple chronic bronchitis (HCC) 12/14/2014 Tobacco use disorder 09/05/2007 Umbilical hernia 12/14/2014 Ureterolithiasis 08/04/2021 PAST SURGICAL HISTORY Procedure Laterality Date APPENDECTOMY 2003 COLONOSCOPY FLX DX W/COLLJ SPEC WHEN PFRMD 08/20/2008 Colonoscopy COLONOSCOPY FLX DX W/COLLJ SPEC WHEN PFRMD 12/20/2018 Colonoscopy ESOPHAGOGASTRODUODENOSCOPY TRANSORAL DIAGNOSTIC 12/20/2018 EGD EXTRACTION ERUPTED TOOTH [place] teeth LAPAROSCOPY SURG CHOLECYSTECTOMY 01/28/2013 Cholecystectomy, lap, Robotic assisted PROSTATE BIOPSY 05/22/2022 SIGMOIDOSCOPY FLX DX W/COLLJ SPEC BR/WA IF PFRMD 09/11/2000 Sigmoidoscopy, flexible TONSILLECTOMY & ADENOIDECTOMY <AGE 12 1977 T/A (under age 12 years) FAMILY HISTORY Problem Relation Age of Onset Hypertension Mother Asthma Mother Alzheimer's Disease Mother Heart Father Stroke Father post Hip Fracture surgery other (macular degeneration) Father No Known Problems Sister No Known Problems Brother lisinopril (ZESTRIL) 10 mg tablet Take 1 tablet by mouth once daily. MULTIVITAMIN TAB Take one(1) tablet daily. ALLERGIES No Known Allergies The medications and allergies were reviewed and reconciled for this patient and deemed current. Lung Cancer Risk Factors: 1.Tobacco Use: Start Age 15, Quit Age: N/A, Average packs per day 1, Pack Years 54 2. Passive Smoke Exposure: Yes, as a Child and as an Adult 3. Personal hx of malignancy: No, Type of Cancer: Low grade prostate cancer 4. Significant exposures (1 year or more of exposure): Dusts, 5. Race: White 6. Education: High School Graduate 7. BMI:Body mass index is 23.18 kg/m . Patient-entered Height: 6'0 Patient-entered Weight: 170 pounds 8. COPD: Yes 9. Pneumonia in the past 5 years: No 10. Is there a history of lung cancer in a first degree relative? No 11. Is there a history of lung cancer in a non-first degree relative? No 12. Is there a history of any other cancer in a first degree relative? No Health Maintenance Immunization History Administered Date(s) Administered COVID-19 original vaccine, full dose, monovalent (MODERNA) 12/01/2020 12/29/2020 09/01/2021 influenza (aIIV4) vaccine, age 65+ yr, quadrivalent, PF (FLUAD QUAD) 08/02/2023 influenza vaccine, unspecified formulation 09/10/2012 pneumococcal (PCV13) vaccine, 13 valent (PREVNAR 13) 12/14/2014 pneumococcal (PPV23) vaccine, 23 valent (PNEUMOVAX 23) 02/01/2021 tetanus diphtheria pertussis (Tdap) vaccine, age 7+ yr (ADACEL, BOOSTRIX) 02/19/2013 Colonoscopy: 12/20/2018 Mammogram: DATA REVIEW I have directly visualized the testing documented: Prior Imaging: Last CT/CTA Chest/Lungs No resulted procedures found. Last CT Chest - Impression Only No resulted procedures found. Last XR Chest - Impression Only XR CHEST 2V FRONTAL/LAT Exam End: 09/05/2022 12:39 PM (Final result) Impression: IMPRESSION: Overall findings unchanged. ... Pulmonary Function Testing: SPIROMETRY - BASELINE AND POST DILATOR ([id number]) - ordered on 02/04/21 No textual results for order. PHYSICAL EXAM: ,BP (P) 122/72 Pulse (P) 70 Resp (P) 16 Wt 76.7 kg (169 lb) SpO2 (P) 98% BMI 23.18 kg/m Deferred ASSESSMENT and RECOMMENDATIONS: 1. Screening for lung cancer: Six year risk for lung cancer: 10.77% [email or web address] http://www.[employer]tiny/01sk 4 https://youu.be/xFaVbGhSbO4 I have determined that the patient is eligible for a low dose CT based on age, absence of signs or symptoms of lung cancer, and total pack years: Yes. The patient and I engaged in shared decision making, including the use of one or more decision aids, to include benefits, harms, follow-up diagnostic testing, over-diagnosis, false positive rate, and total radiation exposure. The patient understands and feels comfortable with it: Yes. The patient was counseled on the importance of adherence to annual LDCT lung cancer screening, impact of comorbidities and ability or willingness to undergo diagnosis and treatment. The patient understands and feels comfortable with it:Yes. 2. Nicotine dependence: The patient was counseled on the importance of smoking cessation if current smoker and, if appropriate, offered additional tobacco cessation counseling services - Smoking Cessation Counseling. SMOKING CESSATION COUNSELING Smoking cessation methods including Behavior Modification were discussed with the patient and assistance offered. The medical conditions adversely affected by cigarette use include:COPD, Emphysema, and Lung Cancer. The patient is currently not ready to quit. I personally spent 3 minutes in counseling. The time spent in smoking cessation counseling is exclusive of any other counseling during this visit. Gabriela James APRN.CNP NPI #: August 14, 2023 11:29 AM documented in this encounter [facility] 08-08-2023 Note HNO ID: [id number] Author: Juanjose Lorenz MD Service: ? Author Type: Physician Type: Progress Notes Filed: 08/08/2023 12:49 PM Note Text: This note was created using Sitrionluis. Subjective Patient presents with: Medicare Wellness Exam F/U 6 months Shady Ojeda is a 68 year old male. His blood pressure improved on recheck. He was asking about his follow up ultrasound, which Dr. Sandoval ordered. He continued to smoke. He otherwise felt well. Review of Systems Constitutional: Negative for fatigue and fever. Respiratory: Negative for cough and shortness of breath. Cardiovascular: Negative for chest pain, palpitations and leg swelling. Genitourinary: Negative for difficulty urinating. Neurological: Negative for dizziness. ACTIVE PROBLEM LIST Esophageal Reflux Tobacco Use Disorder Wrist Pain, Chronic Simple Chronic Bronchitis (Hcc) Essential Hypertension Abdominal Aortic Aneurysm (Aaa) Without Rupture (Hcc) Prostate Cancer (Hcc) Platelets Decreased (Hcc) Current Outpatient Medications Medication Sig lisinopril (ZESTRIL) 10 mg tablet Take 1 tablet by mouth once daily. MULTIVITAMIN TAB Take one(1) tablet daily. No current facility-administered medications for this visit. Objective BP 122/82 (BP Site: Left Arm, BP Position: Sitting) Pulse 64 Temp 36.6 ?C (97.9 ?F) (Temporal) Ht 181.9 cm (5' 11.6 ) Wt 76.7 kg (169 lb) BMI 23.18 kg/m? Physical Exam Constitutional: Appearance: Normal appearance. Cardiovascular: Rate and Rhythm: Normal rate and regular rhythm. Heart sounds: No murmur heard. No gallop. Pulmonary: Effort: No respiratory distress. Breath sounds: Normal breath sounds. No wheezing or rales. Musculoskeletal: Right lower leg: No edema. Left lower leg: No edema. Neurological: Mental Status: He is alert. Assessment and Plan 1. Medicare annual wellness visit, initial - ICD9: V70.0, ICD10: Z00.00 (primary diagnosis) See wellness note below. 2. Abdominal aortic aneurysm (AAA) without rupture, unspecified part (HCC) - ICD9: 441.4, ICD10: I71.40 - follow up ordered. 3. Tobacco use disorder - ICD9: 305.1, ICD10: F17.200 - Cessation encouraged. - CONSULT LUNG CANCER SCREENING CLINIC Patient indicated understanding and willingness to follow recommendations. 4. Essential hypertension - ICD9: 401.9, ICD10: I10 - Controlled - Continue current medications - CBC - COMP METABOLIC PANEL - LIPID PANEL BASIC Juanjose Lorenz MD MEDICARE WELLNESS Shady Ojeda is a 68 year old male here for a Medicare wellness visit. Medicare Health Risk Assessment General Health Good Exercise: Minutes/Day 30 Exercise: Days/Week 4 Alcohol: Daily Use 4 or more times a week Alcohol: Drinks/Day 1 or 2 Alcohol: 6 or more drinks Never Feel off balance No Concerns: Teeth/Dentures No Concerns: Sexual function Yes Troubled by feelings None of the above Frequency: Eating healthy diet More than half the days ADLs requiring help None of the above Safety precautions in home/vehicle Yes Smoke, vape, chews tobacco Yes, but I'm not ready to quit Difficulty hearing No Difficulty seeing No Current Providers Specialists: I have reviewed specialist-related care of the patient in the medical record. Medical/Family history review Reviewed and updated problem list, medical/surgical/family/social history, medications, and allergies. Opioid use review Opioid Medications (last 90 days) Some values may be hidden. Unless noted otherwise, only the newest values recorded on each date are displayed. Opioid Medications No data to display. Depression screening Depression Screening PHQ-2 Score PHQ-9 Score 08/04/2022 0 - Depression screening tool completed and reviewed. Based on score and interview, patient is not at risk for depression. Screening tool discussed with patient, and I recommended no further intervention at this time. Cognitive screening Mini Cog Score: 5 Functional Observation Was the patient's timed Up AND Go test unsteady or ? 12 seconds? No Advance Care Planning Patient did not wish or was not able to name a surrogate decision maker or provide an advance care plan Measurements BP 130/82 Pulse 64 Temp (Src) 97.9 (Temporal) Ht 5' 11.6 (1.82m) Wt 169 lb (76.7kg) BMI 23.17 kg/(m2). Additional screenings: Vision Screening Right eye - Without correction: With correction: 20/40 Left eye - Without correction: With correction: 20/20 Both eyes - Without correction: With correction: 20/25 Assessment/Plan Medicare annual wellness visit, subsequent (Z00.00) - Counseled on healthy diet and regular exercise - Fall avoidance information provided - Personalized prevention plan provided - Vaccines recommended. See printed instructions or information. [facility] 08-08-2023 Instructions Juanjose Lorenz MD - 08/08/2023 11:51 AM EST CONSIDER THESE VACCINES FROM YOUR PHARMACY Shingrix Vaccine(1 of 2) Never done RSV Vaccine(1 - 1-dose 60+ series) Never done DTaP,Tdap,Td Vaccine(2 - Td or Tdap) due on 02/19/2023 Covid-19 Vaccine(4 - 2023-24 season) due on 06/01/2023 Have you ever planned for future healthcare decisions with a power of insurance attorney, living will, or advance directives? Yes. Have you shared those records with your doctor? No and No. Please bring a copy to your next appointment or email to [email or web address] Advance Directive Forms Advanced Directives Forms (Japanese) FORMS: [email or web address] [email or web address]/pwyn-wipzvl-uoif-power -[email or web address]-insurance attorney.pdf INFORMATIONAL BROCHURE: [email or web address].[email or web address]/- /scassets/files/org/patients-vis itors/information/advance-direct reina.ashx?la=en Advance Directives (non-Japanese) FORMS: [email or web address] [email or web address]/information/medical-deci sions-guide/advance-directives#f orms-tab Please bring completed forms to your next appointment or email them to [email or web address]. Patient Resources How to Get Started Talking with Loved Ones about your Wishes at the End of Life [email or web address]://theconversationproject.o rg/wp-content/uploads//Co nversationProject-ConvoStarterKi t-Japanese.pdf How to Navigate Conversations with your Care Team around your Preferences [email or web address] [email or web address] documented in this encounter [facility] 08-08-2023 History of Presen t illness Narrative This note was created using Sitrionriter. Subjective Patient presents with: Medicare Wellness Exam F/U 6 months Shady Ojeda is a 68 year old male. His blood pressure improved on recheck. He was asking about his follow up ultrasound, which Dr. Sandoval ordered. He continued to smoke. He otherwise felt well. Review of Systems Constitutional: Negative for fatigue and fever. Respiratory: Negative for cough and shortness of breath. Cardiovascular: Negative for chest pain, palpitations and leg swelling. Genitourinary: Negative for difficulty urinating. Neurological: Negative for dizziness. ACTIVE PROBLEM LIST Esophageal Reflux Tobacco Use Disorder Wrist Pain, Chronic Simple Chronic Bronchitis (Hcc) Essential Hypertension Abdominal Aortic Aneurysm (Aaa) Without Rupture (Hcc) Prostate Cancer (Hcc) Platelets Decreased (Hcc) Current Outpatient Medications Medication Sig lisinopril (ZESTRIL) 10 mg tablet Take 1 tablet by mouth once daily. MULTIVITAMIN TAB Take one(1) tablet daily. No current facility-administered medications for this visit. Objective BP 122/82 (BP Site: Left Arm, BP Position: Sitting) Pulse 64 Temp 36.6 C (97.9 F) (Temporal) Ht 181.9 cm (5' 11.6 ) Wt 76.7 kg (169 lb) BMI 23.18 kg/m Physical Exam Constitutional: Appearance: Normal appearance. Cardiovascular: Rate and Rhythm: Normal rate and regular rhythm. Heart sounds: No murmur heard. No gallop. Pulmonary: Effort: No respiratory distress. Breath sounds: Normal breath sounds. No wheezing or rales. Musculoskeletal: Right lower leg: No edema. Left lower leg: No edema. Neurological: Mental Status: He is alert. Assessment and Plan 1. Medicare annual wellness visit, initial - ICD9: V70.0, ICD10: Z00.00 (primary diagnosis) See wellness note below. 2. Abdominal aortic aneurysm (AAA) without rupture, unspecified part (HCC) - ICD9: 441.4, ICD10: I71.40 - follow up ordered. 3. Tobacco use disorder - ICD9: 305.1, ICD10: F17.200 - Cessation encouraged. - CONSULT LUNG CANCER SCREENING CLINIC Patient indicated understanding and willingness to follow recommendations. 4. Essential hypertension - ICD9: 401.9, ICD10: I10 - Controlled - Continue current medications - CBC - COMP METABOLIC PANEL - LIPID PANEL BASIC Juanjose Lorenz MD MEDICARE WELLNESS Shady Ojeda is a 68 year old male here for a Medicare wellness visit. Medicare Health Risk Assessment General Health Good Exercise: Minutes/Day 30 Exercise: Days/Week 4 Alcohol: Daily Use 4 or more times a week Alcohol: Drinks/Day 1 or 2 Alcohol: 6 or more drinks Never Feel off balance No Concerns: Teeth/Dentures No Concerns: Sexual function Yes Troubled by feelings None of the above Frequency: Eating healthy diet More than half the days ADLs requiring help None of the above Safety precautions in home/vehicle Yes Smoke, vape, chews tobacco Yes, but I'm not ready to quit Difficulty hearing No Difficulty seeing No Current Providers Specialists: I have reviewed specialist-related care of the patient in the medical record. Medical/Family history review Reviewed and updated problem list, medical/surgical/family/social history, medications, and allergies. Opioid use review Opioid Medications (last 90 days) Some values may be hidden. Unless noted otherwise, only the newest values recorded on each date are displayed. Opioid Medications No data to display. Depression screening Depression Screening PHQ-2 Score PHQ-9 Score 08/04/2022 0 - Depression screening tool completed and reviewed. Based on score and interview, patient is not at risk for depression. Screening tool discussed with patient, and I recommended no further intervention at this time. Cognitive screening Mini Cog Score: 5 Functional Observation Was the patient's timed Up & Go test unsteady or ? 12 seconds? No Advance Care Planning Patient did not wish or was not able to name a surrogate decision maker or provide an advance care plan Measurements BP 130/82 Pulse 64 Temp (Src) 97.9 (Temporal) Ht 5' 11.6 (1.82m) Wt 169 lb (76.7kg) BMI 23.17 kg/(m^2). Additional screenings: Vision Screening Right eye - Without correction: With correction: 20/40 Left eye - Without correction: With correction: 20/20 Both eyes - Without correction: With correction: 20/25 Assessment/Plan Medicare annual wellness visit, subsequent (Z00.00) - Counseled on healthy diet and regular exercise - Fall avoidance information provided - Personalized prevention plan provided - Vaccines recommended. See printed instructions or information. documented in this encounter [facility] 03-20-2023 Note HNO ID: [id number] Author: Robert Sandoval, DO Service: ? Author Type: Physician Type: Progress Notes Filed: 03/20/2023 10:41 AM Note Text: [facility] OUTPATIENT VISIT DATE March 20, 2023 PRIMARY CARE PHYSICIAN: Juanjose Lorenz [address] [place] [address] HISTORY OF PRESENT ILLNESS: Mr. Ojeda is a 68 year old male. The patient returns for follow-up second history of chronically abnormal EKG with additional history of hypertension and abdominal aortic aneurysm. He remains active and denies chest discomfort, dyspnea, orthopnea, paroxysmal nocturnal dyspnea, palpitations, near-syncope or syncope. Recent cholesterol profile was excellent. PLAN AND RECOMMENDATIONS: The patient remained stable without symptoms of suggest angina or cardiac compensation. Heart rate, blood pressure and recent cholesterol profile is favorable if not excellent. We have therefore made no additions or changes. He will need his abdominal aortic ultrasound updated in August. We placed that order today. Dietary and lifestyle modification was reemphasized to facilitate risk factor reduction. We will look forward to reevaluating him in 1 years time. Vitals: BP 120/84 Pulse 68 Ht 180.3 cm (5' 11 ) Wt 77.1 kg (170 lb) SpO2 98% BMI 23.71 kg/m? Physical Exam Vitals reviewed. Constitutional: General: He is not in acute distress. Appearance: Normal appearance. He is well-developed. He is not diaphoretic. HENT: Head: Normocephalic and atraumatic. Right Ear: External ear normal. Left Ear: External ear normal. Nose: Nose normal. Eyes: General: No scleral icterus. Right eye: No discharge. Left eye: No discharge. Pupils: Pupils are equal, round, and reactive to light. Neck: Thyroid: No thyromegaly. Vascular: No carotid bruit or JVD. Cardiovascular: Rate and Rhythm: Normal rate and regular rhythm. Heart sounds: No murmur heard. No friction rub. No gallop. Pulmonary: Effort: Pulmonary effort is normal. No respiratory distress. Breath sounds: Normal breath sounds. No wheezing or rales. Abdominal: General: Bowel sounds are normal. Palpations: Abdomen is soft. Musculoskeletal: General: Normal range of motion. Cervical back: Neck supple. Skin: General: Skin is warm and dry. Capillary Refill: Capillary refill takes less than 2 seconds. Coloration: Skin is not pale. Neurological: Mental Status: He is alert and oriented to person, place, and time. Cranial Nerves: No cranial nerve deficit. Psychiatric: Mood and Affect: Mood normal. Mood is not anxious or depressed. Behavior: Behavior normal. Thought Content: Thought content normal. Judgment: Judgment normal. Review of Systems Constitutional: Negative for activity change, appetite change, fatigue and unexpected weight change. HENT: Negative for ear pain and trouble swallowing. Eyes: Negative for pain and visual disturbance. Respiratory: Negative for chest tightness and shortness of breath. Cardiovascular: Positive for palpitations (rare). Negative for chest pain and leg swelling. Gastrointestinal: Negative for abdominal pain and blood in stool. Endocrine: Negative for cold intolerance and heat intolerance. Genitourinary: Negative for dysuria, hematuria and scrotal swelling. Musculoskeletal: Negative for arthralgias and myalgias. Skin: Negative for pallor and rash. Allergic/Immunologic: Negative for immunocompromised state. Neurological: Negative for dizziness, syncope and light-headedness. Hematological: Negative for adenopathy. Does not bruise/bleed easily. Psychiatric/Behavioral: Negative for sleep disturbance. The patient is not nervous/anxious. PAST MEDICAL HISTORY Diagnosis Date Cholelithiasis with obstruction 01/10/2013 Esophageal reflux Essential hypertension 01/01/2018 Essential hypertension, benign HYPERTENSION NOS 09/05/2007 Kidney stones 1999 Other and unspecified hyperlipidemia Prostate cancer (HCC) 08/04/2022 PROSTATIC DISORDER NOS 09/05/2007 PSA elevation 02/07/2020 Simple chronic bronchitis (HCC) 12/14/2014 Tobacco use disorder 09/05/2007 Umbilical hernia 12/14/2014 Ureterolithiasis 08/04/2021 PAST SURGICAL HISTORY Procedure Laterality Date APPENDECTOMY 2002 COLONOSCOPY FLX DX W/COLLJ SPEC WHEN PFRMD 08/20/2008 Colonoscopy COLONOSCOPY FLX DX W/COLLJ SPEC WHEN PFRMD 12/20/2018 Colonoscopy ESOPHAGOGASTRODUODENOSCOPY TRANSORAL DIAGNOSTIC 12/20/2018 EGD EXTRACTION ERUPTED TOOTH [place] teeth LAPAROSCOPY SURG CHOLECYSTECTOMY 01/28/2013 Cholecystectomy, lap, Robotic assisted PROSTATE BIOPSY 05/22/2022 SIGMOIDOSCOPY FLX DX W/COLLJ SPEC BR/WA IF PFRMD 09/11/2000 Sigmoidoscopy, flexible TONSILLECTOMY AND ADENOIDECTOMY T/A (under age 12 years) Social History Tobacco Use Smoking status: Every Day Packs/day: 0.50 Years: 45.00 Pac (more content not included)... [facility] 03-20-2023 History of Presen t illness Narrative Images from the original note were not included. [facility] OUTPATIENT VISIT DATE March 20, 2023 PRIMARY CARE PHYSICIAN: Juanjose Lorenz [address] [place] [address] HISTORY OF PRESENT ILLNESS: Mr. Ojeda is a 68 year old male. The patient returns for follow-up second history of chronically abnormal EKG with additional history of hypertension and abdominal aortic aneurysm. He remains active and denies chest discomfort, dyspnea, orthopnea, paroxysmal nocturnal dyspnea, palpitations, near-syncope or syncope. Recent cholesterol profile was excellent. PLAN AND RECOMMENDATIONS: The patient remained stable without symptoms of suggest angina or cardiac compensation. Heart rate, blood pressure and recent cholesterol profile is favorable if not excellent. We have therefore made no additions or changes. He will need his abdominal aortic ultrasound updated in August. We placed that order today. Dietary and lifestyle modification was reemphasized to facilitate risk factor reduction. We will look forward to reevaluating him in 1 years time. Vitals: BP 120/84 Pulse 68 Ht 180.3 cm (5' 11 ) Wt 77.1 kg (170 lb) SpO2 98% BMI 23.71 kg/m Physical Exam Vitals reviewed. Constitutional: General: He is not in acute distress. Appearance: Normal appearance. He is well-developed. He is not diaphoretic. HENT: Head: Normocephalic and atraumatic. Right Ear: External ear normal. Left Ear: External ear normal. Nose: Nose normal. Eyes: General: No scleral icterus. Right eye: No discharge. Left eye: No discharge. Pupils: Pupils are equal, round, and reactive to light. Neck: Thyroid: No thyromegaly. Vascular: No carotid bruit or JVD. Cardiovascular: Rate and Rhythm: Normal rate and regular rhythm. Heart sounds: No murmur heard. No friction rub. No gallop. Pulmonary: Effort: Pulmonary effort is normal. No respiratory distress. Breath sounds: Normal breath sounds. No wheezing or rales. Abdominal: General: Bowel sounds are normal. Palpations: Abdomen is soft. Musculoskeletal: General: Normal range of motion. Cervical back: Neck supple. Skin: General: Skin is warm and dry. Capillary Refill: Capillary refill takes less than 2 seconds. Coloration: Skin is not pale. Neurological: Mental Status: He is alert and oriented to person, place, and time. Cranial Nerves: No cranial nerve deficit. Psychiatric: Mood and Affect: Mood normal. Mood is not anxious or depressed. Behavior: Behavior normal. Thought Content: Thought content normal. Judgment: Judgment normal. Review of Systems Constitutional: Negative for activity change, appetite change, fatigue and unexpected weight change. HENT: Negative for ear pain and trouble swallowing. Eyes: Negative for pain and visual disturbance. Respiratory: Negative for chest tightness and shortness of breath. Cardiovascular: Positive for palpitations (rare). Negative for chest pain and leg swelling. Gastrointestinal: Negative for abdominal pain and blood in stool. Endocrine: Negative for cold intolerance and heat intolerance. Genitourinary: Negative for dysuria, hematuria and scrotal swelling. Musculoskeletal: Negative for arthralgias and myalgias. Skin: Negative for pallor and rash. Allergic/Immunologic: Negative for immunocompromised state. Neurological: Negative for dizziness, syncope and light-headedness. Hematological: Negative for adenopathy. Does not bruise/bleed easily. Psychiatric/Behavioral: Negative for sleep disturbance. The patient is not nervous/anxious. PAST MEDICAL HISTORY Diagnosis Date Cholelithiasis with obstruction 01/10/2013 Esophageal reflux Essential hypertension 01/01/2018 Essential hypertension, benign HYPERTENSION NOS 09/05/2007 Kidney stones 1999 Other and unspecified hyperlipidemia Prostate cancer (HCC) 08/04/2022 PROSTATIC DISORDER NOS 09/05/2007 PSA elevation 02/07/2020 Simple chronic bronchitis (HCC) 12/14/2014 Tobacco use disorder 09/05/2007 Umbilical hernia 12/14/2014 Ureterolithiasis 08/04/2021 PAST SURGICAL HISTORY Procedure Laterality Date APPENDECTOMY 2002 COLONOSCOPY FLX DX W/COLLJ SPEC WHEN PFRMD 08/20/2008 Colonoscopy COLONOSCOPY FLX DX W/COLLJ SPEC WHEN PFRMD 12/20/2018 Colonoscopy ESOPHAGOGASTRODUODENOSCOPY TRANSORAL DIAGNOSTIC 12/20/2018 EGD EXTRACTION ERUPTED TOOTH [place] teeth LAPAROSCOPY SURG CHOLECYSTECTOMY 01/28/2013 Cholecystectomy, lap, Robotic assisted PROSTATE BIOPSY 05/22/2022 SIGMOIDOSCOPY FLX DX W/COLLJ SPEC BR/WA IF PFRMD 09/11/2000 Sigmoidoscopy, flexible TONSILLECTOMY & ADENOIDECTOMY <AGE 12 1977 T/A (under age 12 years) Social History Tobacco Use Smoking status: Every Day Packs/day: 0.50 Years: 45.00 Pack years: 22.50 Types: Cigarettes, Cigars Smokeless tobacco: Never Vaping Use Vaping Use: Never used Substance Use Topics Alcohol use: Yes Alcohol/week: 12.0 standard drinks Types: 12 Cans of Beer (12oz) per week Comment: 2 beers daily or less often Drug use: No FAMILY HISTORY Problem Relation Age of Onset Hypertension Mother Asthma Mother Alzheimer's Disease Mother Heart Father Stroke Father post Hip Fracture surgery other (macular degeneration) Father No Known Problems Sister No Known Problems Brother ALLERGIES No Known Allergies CURRENT MEDICATIONS: lisinopril (ZESTRIL) 10 mg tablet Take 1 tablet by mouth once daily. MULTIVITAMIN TAB Take one(1) tablet daily. calcium carbonate (TUMS ORAL) Take 1 tablet by mouth once daily. ASPIRIN 325 MG TAB, DELAYED RELEASE Take by mouth as needed. DO NOT crush. 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 Robert Sandoval DO, FACC, FACOI Clinical and Preventive Cardiology Department of Medicine and Division of Cardiology, [facility] Entry Level Mechanical Engineergum remover [facility] Entry Level Mechanical Engineer of [facility] Cardiology Office Entry Level Mechanical Engineer [facility] Staff Grill Prep Cook, Keyur Diaz Department of Cardiovascular Medicine/[facility] [place], [facility] Clinical Database Consultant Profressor of Medicine, [facility] Please note: This note has been produced using speech recognition software and may contain errors related to that system including angel luis, punctuation, spelling, words, gender and phrases that may be inappropriate. documented in this encounter [facility] 02-05-2023 Note HNO ID: [id number] Author: Juanjose Lorenz MD Service: ? Author Type: Physician Type: Progress Notes Filed: 02/05/2023 2:28 PM Note Text: This note was created using Sitrionriter. Subjective Shady Ojeda is a 67 year old male. His hypertension was controlled. Aneurysm was monitored. Prostate cancer was monitored by urology. We discussed his interest in stopping smoking. Review of Systems Constitutional: Negative for fever and unexpected weight change. HENT: Negative. Respiratory: Negative for cough, shortness of breath and wheezing. Cardiovascular: Negative for chest pain, palpitations and leg swelling. Gastrointestinal: Negative. ACTIVE PROBLEM LIST Esophageal Reflux Tobacco Use Disorder Wrist Pain, Chronic Simple Chronic Bronchitis (Hcc) Essential Hypertension Psa Elevation Abdominal Aortic Aneurysm (Aaa) Without Rupture (Hcc) Prostate Cancer (Hcc) Social History Tobacco Use Smoking status: Every Day Packs/day: 0.50 Years: 45.00 Pack years: 22.50 Types: Cigarettes, Cigars Smokeless tobacco: Never Vaping Use Vaping Use: Never used Substance Use Topics Alcohol use: Yes Alcohol/week: 12.0 standard drinks Types: 12 Cans of Beer (12oz) per week Comment: 2 beers daily or less often Drug use: No Current Outpatient Medications Medication Sig lisinopril (ZESTRIL, PRINIVIL) 10 mg tablet Take 1 tablet by mouth once daily. calcium carbonate (TUMS ORAL) Take 1 tablet by mouth once daily. ASPIRIN 325 MG TAB, DELAYED RELEASE Take by mouth as needed. DO NOT crush. MULTIVITAMIN TAB Take one(1) tablet daily. No current facility-administered medications for this visit. Objective BP 120/66 (BP Site: Left Arm, BP Position: Sitting, BP Cuff Size: Large Adult) Pulse 72 Resp 16 Wt 80.3 kg (177 lb) BMI 24.69 kg/m? Physical Exam Constitutional: General: He is not in acute distress. Appearance: He is not ill-appearing. Cardiovascular: Rate and Rhythm: Normal rate and regular rhythm. Heart sounds: No murmur heard. No gallop. Pulmonary: Breath sounds: Normal breath sounds. Musculoskeletal: Right lower leg: No edema. Left lower leg: No edema. Neurological: Mental Status: He is alert. Assessment and Plan 1. Tobacco use disorder - ICD9: 305.1, ICD10: F17.200 (primary diagnosis) - Cessation encouraged. - Options for smoking cessation were discussed, including cold turkey, nicotine replacement, bupropion, and varenicline. He did not tolerate varenicline. In the end, he was hesitant to take additional medications and will try cold turkey. 2. Essential hypertension - ICD9: 401.9, ICD10: I10 - good control - Continue current medication(s) - Goal of BP <130/80 - LISINOPRIL 10 MG TABLET - CBC - COMP METABOLIC PANEL - LIPID PANEL BASIC 3. Abdominal aortic aneurysm (AAA) without rupture, unspecified part (HCC) - ICD9: 441.4, ICD10: I71.40 Monitor. 4. Simple chronic bronchitis (HCC) - ICD9: 491.0, ICD10: J41.0 Stable. 5. Prostate cancer (HCC) - ICD9: 185, ICD10: C61 Monitored by urology. 6. Platelets decreased (HCC) - ICD9: 287.5, ICD10: D69.6 Monitor. Juanjose Lorenz MD [facility] 02-05-2023 History of Presen t illness Narrative This note was created using Sitrionriter. Subjective Shady Ojeda is a 67 year old male. His hypertension was controlled. Aneurysm was monitored. Prostate cancer was monitored by urology. We discussed his interest in stopping smoking. Review of Systems Constitutional: Negative for fever and unexpected weight change. HENT: Negative. Respiratory: Negative for cough, shortness of breath and wheezing. Cardiovascular: Negative for chest pain, palpitations and leg swelling. Gastrointestinal: Negative. ACTIVE PROBLEM LIST Esophageal Reflux Tobacco Use Disorder Wrist Pain, Chronic Simple Chronic Bronchitis (Hcc) Essential Hypertension Psa Elevation Abdominal Aortic Aneurysm (Aaa) Without Rupture (Hcc) Prostate Cancer (Hcc) Social History Tobacco Use Smoking status: Every Day Packs/day: 0.50 Years: 45.00 Pack years: 22.50 Types: Cigarettes, Cigars Smokeless tobacco: Never Vaping Use Vaping Use: Never used Substance Use Topics Alcohol use: Yes Alcohol/week: 12.0 standard drinks Types: 12 Cans of Beer (12oz) per week Comment: 2 beers daily or less often Drug use: No Current Outpatient Medications Medication Sig lisinopril (ZESTRIL, PRINIVIL) 10 mg tablet Take 1 tablet by mouth once daily. calcium carbonate (TUMS ORAL) Take 1 tablet by mouth once daily. ASPIRIN 325 MG TAB, DELAYED RELEASE Take by mouth as needed. DO NOT crush. MULTIVITAMIN TAB Take one(1) tablet daily. No current facility-administered medications for this visit. Objective BP 120/66 (BP Site: Left Arm, BP Position: Sitting, BP Cuff Size: Large Adult) Pulse 72 Resp 16 Wt 80.3 kg (177 lb) BMI 24.69 kg/m Physical Exam Constitutional: General: He is not in acute distress. Appearance: He is not ill-appearing. Cardiovascular: Rate and Rhythm: Normal rate and regular rhythm. Heart sounds: No murmur heard. No gallop. Pulmonary: Breath sounds: Normal breath sounds. Musculoskeletal: Right lower leg: No edema. Left lower leg: No edema. Neurological: Mental Status: He is alert. Assessment and Plan 1. Tobacco use disorder - ICD9: 305.1, ICD10: F17.200 (primary diagnosis) - Cessation encouraged. - Options for smoking cessation were discussed, including cold turkey, nicotine replacement, bupropion, and varenicline. He did not tolerate varenicline. In the end, he was hesitant to take additional medications and will try cold turkey. 2. Essential hypertension - ICD9: 401.9, ICD10: I10 - good control - Continue current medication(s) - Goal of BP <130/80 - LISINOPRIL 10 MG TABLET - CBC - COMP METABOLIC PANEL - LIPID PANEL BASIC 3. Abdominal aortic aneurysm (AAA) without rupture, unspecified part (HCC) - ICD9: 441.4, ICD10: I71.40 Monitor. 4. Simple chronic bronchitis (HCC) - ICD9: 491.0, ICD10: J41.0 Stable. 5. Prostate cancer (HCC) - ICD9: 185, ICD10: C61 Monitored by urology. 6. Platelets decreased (HCC) - ICD9: 287.5, ICD10: D69.6 Monitor. Juanjose Lorenz MD documented in this encounter [facility] 11-22-2022 Miscellaneous Notes Spoke with patient. Given message from provider's office. Patient verbalizes understanding. Tarsha Smith RN Dr. Carnes is checking his PSA. He just had one in August. Patient calling to request order for PSA lab test. States he is due for follow upscreening. Tarsha Smith RN documented in this encounter [facility] 09-05-2022 History of Presen t illness Narrative This note was created using GraffitiTechter. Subjective Shady Ojeda is a 67 year old male. Symptoms started . He had fever for 4 days, sore throat for 5 days. He had residual cough with coughing spells, fatigue, loss of smell and taste. He was taking Robitussin DM with fair relief. He had been doing home Covid tests which continued to be positive, even yesterday. Review of Systems Constitutional: Negative for chills, diaphoresis and fever. Respiratory: Positive for wheezing. Negative for chest tightness and shortness of breath. Cardiovascular: Negative. Gastrointestinal: Negative for diarrhea, nausea and vomiting. Musculoskeletal: Negative. ACTIVE PROBLEM LIST Esophageal Reflux Tobacco Use Disorder Wrist Pain, Chronic Simple Chronic Bronchitis (Hcc) Essential Hypertension Psa Elevation Abdominal Aortic Aneurysm (Aaa) Without Rupture Prostate Cancer (Hcc) Social History Tobacco Use Smoking status: Every Day Packs/day: 0.50 Years: 45.00 Pack years: 22.50 Types: Cigarettes, Cigars Smokeless tobacco: Never Vaping Use Vaping Use: Never used Substance Use Topics Alcohol use: Yes Alcohol/week: 15.0 standard drinks Types: 6 Cans of Beer (12oz) per week Drug use: No Current Outpatient Medications Medication Sig lisinopril (ZESTRIL, PRINIVIL) 10 mg tablet Take 1 tablet by mouth once daily. calcium carbonate (TUMS ORAL) Take 1 tablet by mouth once daily. ASPIRIN 325 MG TAB, DELAYED RELEASE Take by mouth as needed. DO NOT crush. MULTIVITAMIN TAB Take one(1) tablet daily. No current facility-administered medications for this visit. Objective BP 124/80 (BP Site: Right Arm, BP Position: Sitting, BP Cuff Size: Large Adult) Pulse 76 Temp 36.3 C (97.3 F) (Temporal) Wt 77.1 kg (170 lb) SpO2 96% BMI 23.71 kg/m Physical Exam Constitutional: General: He is not in acute distress. HENT: Nose: Congestion present. No rhinorrhea. Right Turbinates: Swollen. Right Sinus: No maxillary sinus tenderness or frontal sinus tenderness. Left Sinus: No maxillary sinus tenderness or frontal sinus tenderness. Mouth/Throat: Pharynx: Posterior oropharyngeal erythema present. Cardiovascular: Rate and Rhythm: Normal rate and regular rhythm. Heart sounds: No murmur heard. No gallop. Pulmonary: Effort: No respiratory distress. Breath sounds: Wheezing present. No rales. Abdominal: Tenderness: There is no abdominal tenderness. Musculoskeletal: Right lower leg: No edema. Left lower leg: No edema. Lymphadenopathy: Cervical: No cervical adenopathy. Neurological: General: No focal deficit present. Mental Status: He is alert. Gait: Gait normal. Assessment and Plan 1. COVID-19 - ICD9: 079.89, ICD10: U07.1 (primary diagnosis) Improving. Rule out pneumonitis. - XR CHEST 2V FRONTAL/LAT 2. Wheezing - ICD9: 786.07, ICD10: R06.2 He declined bronchodilator. - XR CHEST 2V FRONTAL/LAT Continue symptom care, unless chest X-ray is a concern. Juanjose Lorenz MD documented in this encounter [facility] 09-04-2022 Miscellaneous Notes Patient notified, verbalized understanding and scheduled. Needs evaluated in the office for this to make sure there are no COVID complications such as pneumonia Ayleen Chun APRN.CNP Pt called in and reports he was Covid + 10 days ago. He wanted to know if there was anything he could get to decrease the symptoms now. Let Pt know that at this point he would only be able to take OTC medications. Pt states his fever has been gone for a week. He states he still has coughing fits 3 times a day and is bringing up a large amount of thick clear to light yellow sputum. Pt states breathing is worse at night time, but denies being short of breath except during a coughing fit. Pt states he has lost his taste and smell, and just feels adam of run down. Let Pt know that the provider recommend the Robitussin DM, and to drink water to thin out his secretions, as well as a humidifier in his house. Please call and advise anything else provider would have the Pt take. documented in this encounter [facility] 08-17-2022 Miscellaneous Notes Called PT and put in his my chart about Patient has mild abdominal aortic dilatation. No intervention at this time but will need future repeat abdominal ultrasound usually yearly to follow. Robert Sandoval, PT states he understands documented in this encounter [facility] 08-04-2022 History of Presen t illness Narrative This note was created using MK2Media. Subjective Shady Ojeda is a 67 year old male. He saw Dr. Sandoval and risk factor modification was recommended. Aneurysm needed rechecked so he needed to schedule the US. His hypertension was controlled. He had a prostate biopsy last May and was now monitored by Dr. Carnes for prostate cancer. He had no concerns other than when to check his abdominal aortic aneurysm. Review of Systems Constitutional: Negative. Respiratory: Negative. Cardiovascular: Negative. Gastrointestinal: Negative. Neurological: Negative. ACTIVE PROBLEM LIST Esophageal Reflux Tobacco Use Disorder Wrist Pain, Chronic Simple Chronic Bronchitis (Hcc) Essential Hypertension Psa Elevation Abdominal Aortic Aneurysm (Aaa) Without Rupture Prostate Cancer (Hcc) Social History Tobacco Use Smoking status: Every Day Packs/day: 0.50 Years: 45.00 Pack years: 22.50 Types: Cigarettes, Cigars Smokeless tobacco: Never Vaping Use Vaping Use: Never used Substance Use Topics Alcohol use: Yes Alcohol/week: 15.0 standard drinks Types: 6 Cans of Beer (12oz) per week Drug use: No Current Outpatient Medications Medication Sig lisinopril (ZESTRIL, PRINIVIL) 10 mg tablet Take 1 tablet by mouth once daily. calcium carbonate (TUMS ORAL) Take 1 tablet by mouth once daily. ASPIRIN 325 MG TAB, DELAYED RELEASE Take by mouth as needed. DO NOT crush. MULTIVITAMIN TAB Take one(1) tablet daily. No current facility-administered medications for this visit. Objective BP (P) 128/92 (BP Site: Left Arm, BP Position: Sitting, BP Cuff Size: Large Adult) Pulse (P) 66 Resp (P) 16 Wt (P) 79.4 kg (175 lb) BMI (P) 24.41 kg/m Physical Exam Constitutional: General: He is not in acute distress. Cardiovascular: Rate and Rhythm: Normal rate and regular rhythm. Heart sounds: No murmur heard. No gallop. Pulmonary: Breath sounds: Normal breath sounds. Abdominal: Palpations: Abdomen is soft. Musculoskeletal: Right lower leg: No edema. Left lower leg: No edema. Neurological: Mental Status: He is alert. Assessment and Plan 1. Essential hypertension - ICD9: 401.9, ICD10: I10 (primary diagnosis) - fair control - Continue current medication(s) - Encouraged dietary sodium restriction/DASH diet - Goal of BP <130/80 2. Prostate cancer (HCC) - ICD9: 185, ICD10: C61 Recently diagnosed and monitored by Dr. Carnes. 3. Abdominal aortic aneurysm (AAA) without rupture, unspecified part - ICD9: 441.4, ICD10: I71.40 Schedule US ordered by cardiology. 4. Tobacco use disorder - ICD9: 305.1, ICD10: F17.200 - Cessation encouraged. - Call or schedule for medication assisted smoking cessation. He preferred to try acupuncture first. 5. Simple chronic bronchitis (HCC) - ICD9: 491.0, ICD10: J41.0 Stable. Smoking cessation. Juanjose Lorenz MD documented in this encounter [facility] documented as of this encounter (statuses as of 08/04/2022) [facility]11-04-2021 History of Past illness Narrative* Problem Noted Date Resolved Date Ureterolithiasis 08/04/2021 08/04/2022 Hematuria 08/04/2021 08/04/2022 Umbilical hernia 12/14/2014 02/01/2021 Unspecified essential hypertension 09/05/2007 02/19/2013 Other and unspecified hyperlipidemia 09/05/2007 02/19/2013 Headache(784.0) 09/05/2007 02/19/2013 Unspecified disorder of prostate 09/05/2007 02/19/2013 documented as of this encounter (statuses as of 08/17/2022) [facility] History of Past illness Narrative* Problem Noted Date Resolved Date Ureterolithiasis 08/04/2021 08/04/2022 Hematuria 08/04/2021 08/04/2022 Umbilical hernia 12/14/2014 02/01/2021 Unspecified essential hypertension 09/05/2007 02/19/2013 Other and unspecified hyperlipidemia 09/05/2007 02/19/2013 Headache(784.0) 09/05/2007 02/19/2013 Unspecified disorder of prostate 09/05/2007 02/19/2013 documented as of this encounter (statuses as of 09/04/2022) [facility] History of Past illness Narrative* Problem Noted Date Resolved Date Ureterolithiasis 08/04/2021 08/04/2022 Hematuria 08/04/2021 08/04/2022 Umbilical hernia 12/14/2014 02/01/2021 Unspecified essential hypertension 09/05/2007 02/19/2013 Other and unspecified hyperlipidemia 09/05/2007 02/19/2013 Headache(784.0) 09/05/2007 02/19/2013 Unspecified disorder of prostate 09/05/2007 02/19/2013 documented as of this encounter (statuses as of 09/05/2022) [facility] History of Past illness Narrative* Problem Noted Date Resolved Date Ureterolithiasis 08/04/2021 08/04/2022 Hematuria 08/04/2021 08/04/2022 Umbilical hernia 12/14/2014 02/01/2021 Unspecified essential hypertension 09/05/2007 02/19/2013 Other and unspecified hyperlipidemia 09/05/2007 02/19/2013 Headache(784.0) 09/05/2007 02/19/2013 Unspecified disorder of prostate 09/05/2007 02/19/2013 documented as of this encounter (statuses as of 11/23/2022) [place] [address]-04-2021 History of Past illness Narrative* Problem Noted Date Resolved Date Ureterolithiasis 08/04/2021 08/04/2022 Hematuria 08/04/2021 08/04/2022 PSA elevation 02/07/2020 02/05/2023 Umbilical hernia 12/14/2014 02/01/2021 Unspecified essential hypertension 09/05/2007 02/19/2013 Other and unspecified hyperlipidemia 09/05/2007 02/19/2013 Headache(784.0) 09/05/2007 02/19/2013 Unspecified disorder of prostate 09/05/2007 02/19/2013 documented as of this encounter (statuses as of 02/06/2023) [facility] History of Past illness Narrative* Problem Noted Date Resolved Date Ureterolithiasis 08/04/2021 08/04/2022 Hematuria 08/04/2021 08/04/2022 PSA elevation 02/07/2020 02/05/2023 Umbilical hernia 12/14/2014 02/01/2021 Unspecified essential hypertension 09/05/2007 02/19/2013 Other and unspecified hyperlipidemia 09/05/2007 02/19/2013 Headache(784.0) 09/05/2007 02/19/2013 Unspecified disorder of prostate 09/05/2007 02/19/2013 documented as of this encounter (statuses as of 03/20/2023) [facility] History of Past illness Narrative* Problem Noted Date Diagnosed Date Resolved Date Ureterolithiasis 08/04/2021 08/04/2022 Hematuria 08/04/2021 08/04/2022 PSA elevation 02/07/2020 02/05/2023 Umbilical hernia 12/14/2014 02/01/2021 Unspecified essential hypertension 09/05/2007 02/19/2013 Other and unspecified hyperlipidemia 09/05/2007 02/19/2013 Headache(784.0) 09/05/2007 02/19/2013 Unspecified disorder of prostate 09/05/2007 02/19/2013 documented as of this encounter (statuses as of 08/09/2023) [facility] History of Past illness Narrative* Problem Noted Date Diagnosed Date Resolved Date Ureterolithiasis 08/04/2021 08/04/2022 Hematuria 08/04/2021 08/04/2022 PSA elevation 02/07/2020 02/05/2023 Umbilical hernia 12/14/2014 02/01/2021 Unspecified essential hypertension 09/05/2007 02/19/2013 Other and unspecified hyperlipidemia 09/05/2007 02/19/2013 Headache(784.0) 09/05/2007 02/19/2013 Unspecified disorder of prostate 09/05/2007 02/19/2013 documented as of this encounter (statuses as of 08/15/2023) [facility] History of Past illness Narrative* Problem Noted Date Diagnosed Date Resolved Date Ureterolithiasis 08/04/2021 08/04/2022 Hematuria 08/04/2021 08/04/2022 PSA elevation 02/07/2020 02/05/2023 Umbilical hernia 12/14/2014 02/01/2021 Unspecified essential hypertension 09/05/2007 02/19/2013 Other and unspecified hyperlipidemia 09/05/2007 02/19/2013 Headache(784.0) 09/05/2007 02/19/2013 Unspecified disorder of prostate 09/05/2007 02/19/2013 documented as of this encounter (statuses as of 09/07/2023) [facility] History of Past illness Narrative* Problem Noted Date Diagnosed Date Resolved Date Ureterolithiasis 08/04/2021 08/04/2022 Hematuria 08/04/2021 08/04/2022 PSA elevation 02/07/2020 02/05/2023 Umbilical hernia 12/14/2014 02/01/2021 Unspecified essential hypertension 09/05/2007 02/19/2013 Other and unspecified hyperlipidemia 09/05/2007 02/19/2013 Headache(784.0) 09/05/2007 02/19/2013 Unspecified disorder of prostate 09/05/2007 02/19/2013 documented as of this encounter (statuses as of 09/09/2023) [facility] Diagnosis Essential hypertension- Primary Unspecified essential hypertension Prostate cancer (HCC) Malignant neoplasm of prostate Abdominal aortic aneurysm (AAA) without rupture, unspecified part Tobacco use disorder Simple chronic bronchitis (HCC) Simple chronic bronchitis [facility] Diagnosis COVID-19- Primary Wheezing [facility] Diagnosis Tobacco use disorder- Primary Essential hypertension Unspecified essential hypertension Abdominal aortic aneurysm (AAA) without rupture, unspecified part (HCC) Simple chronic bronchitis (HCC) Simple chronic bronchitis Prostate cancer (HCC) Malignant neoplasm of prostate Platelets decreased (HCC) Thrombocytopenia, unspecified documented in this encounter [facility] note* Diagnosis Abnormal EKG- Primary Nonspecific abnormal electrocardiogram (ECG) (EKG) Essential hypertension Unspecified essential hypertension Abdominal aortic aneurysm (AAA) without rupture, unspecified part (HCC) [facility] Diagnosis Medicare annual wellness visit, initial- Primary Routine general medical examination at a [facility] facility Abdominal aortic aneurysm (AAA) without rupture, unspecified part (HCC) Tobacco use disorder Essential hypertension Unspecified essential hypertension documented in this encounter [facility] note* Diagnosis Encounter for screening for lung cancer- Primary Tobacco use disorder documented in this encounter [facility] note* Diagnosis Tobacco use disorder documented in this encounter [facility] note* Diagnosis Tobacco use disorder- Primary [facility] Outpatient Procedure (Routine) - Pending Review Specialty Diagnoses / Procedures Referred By Lana marie [facility] Diagnoses Abnormal EKG Essential hypertension Abdominal aortic aneurysm (AAA) without rupture, unspecified part (HCC) Procedures US ABD AORTA COMPLETE VAS LAB DUP-SCAN AORTA IVC ILIAC VASCL/BPGS COMPLETE Robert Sandoval DO [address] [place] [address] [facility] [place] [address] [place] [id number] Referral ID Status Reason Start Date Expiration Date Visits Requested Visits Authorized [id number] Pending Review Auto-Generat ed Referral 3 03/19/2024 1 1 [facility] Reason for Referral Specialty Diagnoses / Procedures Referred By Lana marie Referred To Contact CT IMAGING Diagnoses Tobacco use disorder Procedures CT LUNG SCREEN WO IVCON COMPUTED TOMOGRAPHY THORAX LW DOSE LNG CA SCR C- Gabriela James, SUPERVISOR STRIPPING.HUMAN RESOURCES SERVICES SPECIALIST [address] [place] [id number] Imaging [facility] Referral ID Status Reason Start Date Expiration Date Visits Requested Visits Authorized [id number] Authorized Auto-Generat ed Referral 3 09/12/2024 1 1 Referral ID Status Reason Start Date Expiration Date Visits Requested Visits Authorized [id number] Pending Review Auto-Generat ed Referral 3 10/08/2024 1 1 Summary Purpose Family History No Family History Records Found Advance Directives No Advanced Directives Records Found Additional Source Comments Source Comments (unrecognize d section and content) In the event this informatio n is protected by the Federal Confidentiality of Alcohol and Drug Abuse Patient Records regulations: The Federal rules restrict any use of the information to criminally investigate or prosecute any alcohol or drug abuse patient.[facility] MemorialIn the event this information is protected by the Federal Confidentiality of Alcohol and Drug Abuse Patient Records regulations: The Federal rules restrict any use of the information to criminally investigate or prosecute any alcohol or drug abuse patient.[facility] MemorialIn the event this information is protected by the Federal Confidentiality of Alcohol and Drug Abuse Patient Records regulations: The Federal rules restrict any use of the information to criminally investigate or prosecute any alcohol or drug abuse patient.[facility] MemorialIn the event this information is protected by the Federal Confidentiality of Alcohol and Drug Abuse Patient Records regulations: The Federal rules restrict any use of the information to criminally investigate or prosecute any alcohol or drug abuse patient.[facility] MemorialIn the event this information is protected by the Federal Confidentiality of Alcohol and Drug Abuse Patient Records regulations: The Federal rules restrict any use of the information to criminally investigate or prosecute any alcohol or drug abuse patient.[facility] MemorialIn the event this information is protected by the Federal Confidentiality of Alcohol and Drug Abuse Patient Records regulations: The Federal rules restrict any use of the information to criminally investigate or prosecute any alcohol or drug abuse patient.[facility] MemorialIn the event this information is protected by the Federal Confidentiality of Alcohol and Drug Abuse Patient Records regulations: The Federal rules restrict any use of the information to criminally investigate or prosecute any alcohol or drug abuse patient.[facility] MemorialIn the event this information is protected by the Federal Confidentiality of Alcohol and Drug Abuse Patient Records regulations: The Federal rules restrict any use of the information to criminally investigate or prosecute any alcohol or drug abuse patient.[facility] MemorialIn the event this information is protected by the Federal Confidentiality of Alcohol and Drug Abuse Patient Records regulations: The Federal rules restrict any use of the information to criminally investigate or prosecute any alcohol or drug abuse patient.[facility] MemorialIn the event this information is protected by the Federal Confidentiality of Alcohol and Drug Abuse Patient Records regulations: The Federal rules restrict any use of the information to criminally investigate or prosecute any alcohol or drug abuse patient.[facility] MemorialIn the event this information is protected by the Federal Confidentiality of Alcohol and Drug Abuse Patient Records regulations: The Federal rules restrict any use of the information to criminally investigate or prosecute any alcohol or drug abuse patient.[facility] Reason for Visit (unrecogniz ed section and content) Reason Comments Results Reason Comments Patient Question Patient Update Reason Comments Covid Follow Up Reason Comments Orders Reason Comments F/U 6 months Reason Comments Established Patient Follow-Up No current cardiac concerns RM 15EKG completed today Reason Comments Medicare Wellness Exam F/U 6 months Reason Comments New Patient LCS Reason Comments Radiology CT Specialty Diagnoses / Procedures Referred By Contac t Referred To Contact CT IMAGING Diagnoses Tobacco use disorder Procedures CT LUNG SCREEN WO IVCON COMPUTED TOMOGRAPHY THORAX LW DOSE LNG CA SCR Layo- Gabriela James, RDE.HUMAN RESOURCES SERVICES SPECIALIST [address] [place] [address] Ct Imaging [facility] Referral ID Status Reason Start Date Expiration Date V isits Requested Visits Authorized [id number] Closed Auto-Generate d Referral 08/14/2023 09/12/2024 1 1 Care Teams (unrecognized sec tion and content) Pipe Fitter Supervisor Relationship Specialty Start Date End Date Juanjose Lorenz MD [facility] [place] [address] PCP - General Internal Medicine 11/26/14 Pipe Fitter Supervisor Relationship Specialty Start Date End Date Juanjose Lorenz MD [facility] [place] [address] PCP - General Internal Medicine 11/26/14 Pipe Fitter Supervisor Relationship Specialty Start Date End Date Juanjose Lorenz MD [address] [place] [address] PCP - General Internal Medicine 11/26/14 Pipe Fitter Supervisor Relationship Specialty Start Date End Date Juanjose Lorenz MD [facility] [place] [address] PCP - General Internal Medicine 11/26/14 Pipe Fitter Supervisor Relationship Specialty Start Date End Date Juanjose Lorenz MD [address] [place] [address] [address] [place], [place] [id number] PCP - General Internal Medicine 11/26/14 Pipe Fitter Supervisor Relationship Specialty Start Date End Date Juanjose Lorenz MD [address] [place], [place] [address] PCP - General Internal Medicine 11/26/14 Pipe Fitter Supervisor Relationship Specialty Start Date End Date Juanjose Lorenz MD [address] [facility] [place] [address] PCP - General Internal Medicine 11/26/14 Pipe Fitter Supervisor Relationship Specialty Start Date End Date Juanjose Lorenz MD [address] [facility] [place] [address] PCP - General Internal Medicine 11/26/14 Pipe Fitter Supervisor Relationship Specialty Start Date End Date Juanjose Lorenz MD [address] [facility], [place] [id number] PCP - General Internal Medicine 11/26/14 (unrecognized sect ion and content) No Status Records Found INFORMATION SOURCE (unrecogn ized section and content) FOR RECORDS PERTAINING TO PATIENTS WHO ARE OR HAVE BEEN ENROLLED IN A CHEMICAL DEPENDENCY/SUBSTANCEABUSE PROGRAM, SOME INFORMATION MAY BE OMITTED. This clinical summary was aggregated from multiple sources. Caution should be exercised in using it in the provision of clinical care. This summary normalizes information from multiple sources, and as a consequence, information in this document may materially change the coding, format and clinical context of patient data. In addition, data may be omitted in some cases. CLINICAL DECISIONS SHOULD BE BASED ON THE PRIMARY CLINICAL RECORDS. [employer] provides no warranty or guarantee of the accuracy or completeness of information in this document.
== END | disposition home or self-care (01) ==
LOC: LABSPEC 16:21
PROVIDERS: PCP Internal Medicine; Referring Provider Urology; Visit Provider Urology
DX: R97.20 Elevated prostate specific antigen [PSA] (principal)
CPT/HCPCS: 88305; 88341; 88342; G0416

== ENCOUNTER → 2024-01-31 | Outpatient (CLI) | payer MEDICARE, OTHER, SELFPAY ==
[2024-01-31 10:04] LABS: PSA,Total- Diagnostic 9.02 ng/mL (0.0-4.0)
== END | disposition home or self-care (01) ==
LOC: LAB 08:35
PROVIDERS: PCP Internal Medicine; Visit Provider Urology
DX: R97.20 Elevated prostate specific antigen [PSA] (principal)
CPT/HCPCS: 36415; 84153

== ENCOUNTER → 2024-08-01 | Outpatient (CLI) | payer MEDICARE, OTHER, SELFPAY ==
[2024-08-01 11:31] LABS: PSA,Total- Diagnostic 9.07 ng/mL (0.0-4.0)
== END | disposition home or self-care (01) ==
LOC: LAB.FUTURE 10:16
PROVIDERS: PCP Internal Medicine; Referring Provider Urology; Visit Provider Urology
DX: C61 Malignant neoplasm of prostate (principal)
CPT/HCPCS: 36415; 84153

== ENCOUNTER → 2025-02-02 | Outpatient (CLI) | payer MEDICARE, OTHER, SELFPAY ==
[2025-02-02 10:11] LABS: PSA,Total - Annual Screen 8.85 ng/mL (0.02-4.00)
== END | disposition home or self-care (01) ==
LOC: LAB 08:52
PROVIDERS: PCP Internal Medicine; Referring Provider Nurse Practitioner; Visit Provider Nurse Practitioner
DX: C61 Malignant neoplasm of prostate (principal)
CPT/HCPCS: 36415; 84153; G0103